=== PATIENT | female | born 1955 | race Caucasian/White ===

== ENCOUNTER 2018-11-24 19:18 | Inpatient (IN) | payer SELFPAY ==
[2018-11-24] MEDS ORDERED: Dexamethasone 4 mg/ml Vial ONE (19:51)
[2018-11-24 20:31] LABS: #Eosinphils 0.1 thou/uL (0.0-0.7); #Lymphocytes 2.5 thou/uL (1.20-3.40); #Monocytes 0.4 thou/uL (0.11-0.59); #Neutrophils 4.7 thou/uL (1.40-6.50); %Basophils 0.5 % (0.0-1.0); %Eosinophils 1.5 % (0.0-10.0); %Lymphocytes 32.6 % (21.0-51.0); %Monocytes 5.2 % (0.0-10.0); %Neutrophils 60.2 % (42.0-75.0); Hemoglobin 10.1 g/dL (12.0-16.0); Mean Corpuscular HGB CONC 32.2 g/dL (32.0-36.0); Mean Corpuscular Hemoglobin 24.9 pg (27.0-31.0); Mean Corpuscular Volume 77.5 fL (78.0-98.0); Mean Platelet Volume 8.4 fL (7.4-10.4); Platelet Count 156 thou/uL (130-400); RBC Distribution Width 15.1 % (11.5-14.5); Red Blood Cell (RBC) Count 4.06 mill/uL (4.20-5.40); White Blood Cell (WBC) Count 7.8 thou/uL (4.8-10.8)
--- NOTE | 2018-11-24 20:34 | RAD ---
CHEST TWO VIEWS: 11/24/18 HISTORY: Cough. COMPARISON: None. FINDINGS: There are sternotomy wires and mediastinal clips. Possible coronary stent. Normal cardiac silhouette. The pulmonary vessels and hilum are normal. Costophrenic angles are clear. No consolidation or mass. No pneumothorax or osseous abnormalities. IMPRESSION: No acute cardiopulmonary process. POS: [facility]
[2018-11-24 20:46] LABS: ALT (SGPT) 8 U/L (8-55); AST (SGOT) 13 U/L (5-34); Albumin 3.8 g/dL (3.4-4.8); Alkaline Phosphatase 89 U/L (40-150); Anion Gap 12 mmol/L (10-20); BUN (Urea Nitrogen) 13 mg/dL (9.8-20.1); Bilirubin, Total 0.2 mg/dL (0.2-1.2); Calc. Creatinine Clearance 0 mL/min (70-130); Calcium 9.3 mg/dL (7.8-10.44); Carbon Dioxide 27 mmol/L (23-31); Chloride 105 mmol/L (98-107); Estimated GFR-MDRD 50; Globulin 3.6 g/dL (2.4-3.5); Glucose 266 mg/dL (80-115); Potassium 4.6 mmol/L (3.5-5.1); Protein, Total 7.4 g/dL (6.0-8.3); Sodium 139 mmol/L (136-145)
[2018-11-24] MEDS ORDERED: Nitroglycerin 0.4 MG TAB (25 Tab Bottle) ONE (22:06)
[2018-11-24] MEDS ORDERED: Nitroglycerin 2% Ointment 1 INCH/1 GM Packet ONE (23:00)
[2018-11-24] MEDS ORDERED: diphenhydrAMINE 50 MG/ML VIAL ONE (23:49)
[2018-11-24 23:50] LABS: Troponin I Less than 0.010 ng/mL (< 0.028)
--- NOTE | 2018-11-25 00:01 | CT ---
CT ANGIOGRAM OF THE CHEST 11/24/18 HISTORY: Pain. COMPARISON: None. TECHNIQUE: CT angiogram of the chest is performed in the axial plane. Three dimensional reformatted images are s ubmitted for interpretation. FINDINGS: Trachea and central bronchi are patent. No suspicious masses or consolidation of the lung parenchyma. Dependent atelectatic changes and chronic changes are noted. No pleural effusion or pneumothorax. The visualized upper solid organs are unremarkable, with the exception of the left adrenal gland whic h appears to be prominent. The possibility of an adrenal adenoma versus hyperplasia should be conside red. Nonemergent adrenal mass protocol CT or abdomen MRI can be performed. There is no mediastinal mass, lymphadenopathy or hematoma. Heart size is within normal limits. No per icardial effusion. There are coronary artery calcifications. No lytic or blastic lesions in the osseous structures. Multilevel degenerative changes with osteophyt e formation is noted. Adequate contrast opacification of the pulmonary arterial system to the level of the segmental arteri es. No filling defect to suggest thromboembolism. IMPRESSION: 1. No evidence of pulmonary artery embolism to the level of the segmental arteries. 2. Indeterminate lesion of the left adrenal glands. Nonemergent adrenal mass protocol CT is giuseppe mmended. POS: [facility]
[2018-11-25 00:53] VITALS: BMI 31.5
[2018-11-25] MEDS ORDERED: Ondansetron ODT 4 MG TAB SL PRN (01:11)
[2018-11-25] MEDS ORDERED: Sodium Chloride 0.9% 1,000 ML IV SCH (01:11)
[2018-11-25] MEDS ORDERED: Acetaminophen 325 MG TAB PO PRN (01:11)
[2018-11-25] MEDS ORDERED: Ondansetron PF 4 MG/2 ML Vial IVP PRN (01:11)
[2018-11-25 02:52] LABS: Troponin I Less than 0.010 ng/mL (< 0.028)
[2018-11-25] MEDS ORDERED: Zolpidem Tartrate 5 MG TAB PO PRN (05:11)
[2018-11-25] MEDS ORDERED: Senokot S 8.6-50 MG TAB PO PRN (05:11)
[2018-11-25] MEDS ORDERED: Dextrose 50% Abboject 50 ML SYRINGE SLOW IVP PRN (05:11)
[2018-11-25] MEDS ORDERED: Bisacodyl 5 MG TAB PO PRN (05:11)
[2018-11-25] MEDS ORDERED: HumaLOG 300 UNITS/3 ML VIAL SC PRN (05:11)
[2018-11-25] MEDS ORDERED: Dextrose 5% in Water 1,000 ML IV PRN (05:11)
[2018-11-25 05:46] LABS: #Lymphocytes 0.8 thou/uL (1.20-3.40); #Monocytes 0.1 thou/uL (0.11-0.59); #Neutrophils 5.6 thou/uL (1.40-6.50); %Basophils 0.5 % (0.0-1.0); %Eosinophils 0.2 % (0.0-10.0); %Lymphocytes 11.6 % (21.0-51.0); %Monocytes 0.8 % (0.0-10.0); %Neutrophils 86.9 % (42.0-75.0); Mean Corpuscular Hemoglobin 24.7 pg (27.0-31.0); Mean Corpuscular Volume 77.1 fL (78.0-98.0); Mean Platelet Volume 8.3 fL (7.4-10.4); Platelet Count 159 thou/uL (130-400); RBC Distribution Width 14.9 % (11.5-14.5); Red Blood Cell (RBC) Count 4.04 mill/uL (4.20-5.40); White Blood Cell (WBC) Count 6.4 thou/uL (4.8-10.8)
[2018-11-25 06:07] LABS: Anion Gap 16 mmol/L (10-20); BUN (Urea Nitrogen) 13 mg/dL (9.8-20.1); Calc. Creatinine Clearance 66 mL/min (70-130); Calcium 9.4 mg/dL (7.8-10.44); Carbon Dioxide 22 mmol/L (23-31); Chloride 103 mmol/L (98-107); Estimated GFR-MDRD 52; Glucose 401 mg/dL (80-115); Potassium 4.9 mmol/L (3.5-5.1); Sodium 136 mmol/L (136-145)
[2018-11-25] MEDS: cefTRIAXone\\ROCEPHIN 1 GM in Sodium Chloride 0.9% 100 ML IVPB SCH (06:22)
[2018-11-25] MEDS: HumaLOG 300 UNITS/3 ML VIAL SC PRN (06:27)
[2018-11-25] MEDS ORDERED: Albuterol Sulfate 2.5 mg/3 ml Neb NEB SCH (06:30)
[2018-11-25] MEDS ORDERED: Ipratropium Bromide 2.5 ml Neb NEB SCH (06:30)
[2018-11-25] MEDS ORDERED: Azithromycin 500 MG in Sodium Chloride 0.9% 250 ML 250 ML IVPB SCH (08:00)
--- NOTE | 2018-11-25 08:43 | HP ---
CHIEF COMPLAINT: Cough. HISTORY OF PRESENT ILLNESS: This is a 63-year-old female with past medical history of diabetes mellitus type 2, hypertension, hyperlipidemia, presenting with cough which has been ongoing for the past two weeks. The patient states that actually the cough initially started a month ago and it progressively got worse two weeks ago, then the patient went to the clinic, saw a doctor and was given azithromycin. The patient has been taking azithromycin from the clinic and she feels like still she is having worsening cough with productive sputum and this is making her very concerned, so this prompted the ED visit. At this time, the patient is coming in and she stating that she has been having low-grade fevers around 100s and 99. The patient also states that she has been having some wheezes and also having dark phlegm with the cough. The patient is also endorsing some shortness of breath. Otherwise, the patient denies any chest pain, palpitations, abdominal pain, nausea, vomiting, dysuria, hematuria, hematochezia, or melena. REVIEW OF SYSTEMS: Positive for subjective fevers, generalized weakness, productive sputum, wheezing, otherwise as documented in the HPI. All other systems were reviewed and are negative. PAST MEDICAL HISTORY: Coronary artery disease, diabetes mellitus type 2, hypertension, hyperlipidemia. PAST SURGICAL HISTORY: CABG x3, colostomy reversal, tubal ligation, right ankle surgery. PSYCHIATRIC HISTORY: Depression. SOCIAL HISTORY: The patient is a former tobacco user. The patient states that she was smoking for a long time and she quit seven years ago. Denies any illicit drug use and denies any alcohol use. ALLERGIES: THE PATIENT IS ALLERGIC TO LEVAQUIN. CURRENT MEDICATIONS: The patient takes; 1. Carvedilol 12.5 mg. 2. Metformin 1000 mg. 3. Lipitor 40 mg. 4. Isosorbide. PHYSICAL EXAMINATION: VITAL SIGNS: Blood pressure is 187/79, pulse is 91, respiratory rate of 20, temperature is 98.5, O2 saturation 97 on room air. GENERAL: The patient is lying in bed, does not appear to be in any acute distress. The patient is very pleasant, alert and oriented x3, able to speak to me in full sentences. The patient do have cough productive. HEENT: Normocephalic and atraumatic. Pupils are equally round and reactive to light. Extraocular movements are intact. No scleral icterus. No conjunctival pallor. Mucous membranes are moist. NECK: Trachea is midline. Full range of motion. No JVD. Supple. LUNGS: The patient is wheezing bilaterally with some diffuse crackles that can be appreciated at the posterior lung bases bilaterally. CARDIAC: Positive S1 and S2. Regular rate and rhythm. No murmurs, no gallops, no rubs appreciated. ABDOMEN: Soft, nontender, and nondistended. Positive bowel sounds in all quadrants. No distention. No peritoneal signs. No mass. No rigidity. EXTREMITIES: The patient has 5/5 upper extremity strength and 5/5 lower extremity strength with good pulses bilaterally at the upper and lower extremities. SKIN: No lesions. Warm, dry, and intact. NEUROLOGIC: Cranial nerves 2 through 12 grossly intact. No neurologic deficits noted. PSYCH: The patient is alert and oriented x3. Normal affect. IMAGING DATA: EKG shows sinus rhythm with a rate of 98. CTA of the chest shows no evidence of pulmonary artery embolism to the level of the segmental arteries. Chest x-ray, no acute cardiopulmonary process. LABORATORY DATA: WBC 7.8, hemoglobin is 10.1, hematocrit of 31.5, and platelet count is 156. D-dimer 0.60. Sodium is 139, potassium is 4.6, chloride is 105, carbon dioxide of 27, anion gap of 12, BUN is 13, creatinine is 1.10, glucose is 266. ASSESSMENT AND PLAN: This is a 63-year-old female being admitted for; 1. Bronchitis. At this point, we are going to continue patient on IV antibiotics. We have started the patient on azithromycin and Rocephin. We will continue on these medications. The patient states that she is not allergic to any other medications except levofloxacin, so therefore we will continue Rocephin. We have consulted Pulmonology for further recommendations. We are going to give the patient DuoNeb treatments, Solu-Medrol. We will do oxygenation and we will try and get the patient's oxygenation around 92%. 2. Questionable chronic obstructive pulmonary disease exacerbation. The patient states that she has smoked extensively in the past. At this point, we will continue the patient on antibiotics. We have consulted Pulmonology for further recommendations. We will continue to monitor this patient. 3. Diabetes mellitus type 2. We will continue the patient on insulin sliding scale. 4. Hyperlipidemia. We will continue the patient on home medication. 5. Hypertension. We will monitor the patient's blood pressures and we will continue the patient on her home medications and we will do p.r.n. blood pressure medications if the patient's blood pressure continued to elevate. 6. DVT, GI prophylaxis. Job ID: [id number]
[2018-11-25] MEDS: Carvedilol 25 MG TAB PO SCH ×2 (10:18→20:45)
[2018-11-25] MEDS: Aspirin 81 mg Enteric Coated Tablet PO SCH (10:18)
[2018-11-25] MEDS: Enoxaparin Sodium 40 MG/0.4 ML SYRINGE SC SCH (10:18)
[2018-11-25] MEDS: Atorvastatin Calcium 40 MG TAB PO SCH (10:18)
[2018-11-25] MEDS: Famotidine 20 MG TAB PO SCH ×2 (10:18→20:45)
[2018-11-25] MEDS: Famotidine/PF 20 mg/2ml Vial SLOW IVP SCH ×2 (10:20→20:50)
[2018-11-25 10:42] LABS: Iron 28 ug/dL (50-170); Iron Binding Capacity, Total 364 mcg/dL (265-497)
[2018-11-25] MEDS ORDERED: Morphine 2 MG/ML SYRINGE SLOW IVP PRN (10:47)
--- NOTE | 2018-11-25 15:40 | PDOC.PN ---
- Subjective Encounter Start Date: 11/25/18 Encounter Start Time: 10:30 Subjective: pt up in bed no complains - Objective Resuscitation Status - Order Detail: 11/25/18 05:11 Resuscitation Status Routine Resuscitation Status: FULL: Full Resuscitation Vital Signs & Weight: Vital Signs (12 hours) Temp Pulse Resp BP BP Pulse Ox 11/25/18 13:49 89 18 98 11/25/18 10:26 97 18 98 11/25/18 08:59 98.9 F 92 20 165/77 H 98 11/25/18 08:55 98 11/25/18 07:50 82 16 96 11/25/18 07:30 98.1 F 84 20 194/79 H 187/81 H 97 11/25/18 04:26 98.0 F 87 19 139/69 98 Weight Weight 172 lb 6.4 oz Result Diagrams: 11/25/18 05:35 11/25/18 05:35 Additional Labs: Accuchecks 11/25/18 00:45 POC Glucose 361 H Phys Exam - Physical Examination Neck: no nodes, no JVD, supple, full ROM Respiratory: no wheezing, no rales, no rhonchi, wheezing present, clear to auscultation bilateral Cardiovascular: RRR, no significant murmur, no rub, gallop, irregular Gastrointestinal: soft, non-tender, no distention, positive bowel sounds Dx/Plan (1) SOB (shortness of breath) Code(s): R06.02 - SHORTNESS OF BREATH Status: Acute (2) Chest pain Code(s): R07.9 - CHEST PAIN, UNSPECIFIED Status: Acute (3) CAD (coronary artery disease) Code(s): I25.10 - ATHSCL HEART DISEASE OF [place] CORONARY ARTERY W/O ANG PCTRS Status: Acute (4) Diabetes insipidus Code(s): E23.2 - DIABETES INSIPIDUS Status: Acute - Plan pt chest pain today mild ekg changes, pt had cath 4 months ago -: in [place] will get results. * . Review of Systems - Review of Systems Respiratory: negative: Cough, Dry, Shortness of Breath, Hemoptysis, SOB with Excertion, Pleuritic Pain, Sputum, Wheezing Cardiovascular: negative: chest pain, palpitations, orthopnea, paroxysmal nocturnal dyspnea, edema, light headedness, other Gastrointestinal: negative: Nausea, Vomiting, Abdominal Pain, Diarrhea, Constipation, Melena, Hematochezia, Other - Medications/Allergies Allergies/Adverse Reactions: Allergies Allergy/AdvReac Type Severity Reaction Status Date / Time levofloxacin [From Levaquin] Allergy Severe Severe Verified 11/25/18 01:03 Hives Medications: Current Medications Albuterol/Ipratropium (Duoneb) 3 ml NEB [id number] [facility] Last Admin: 11/25/18 13:49 Dose: 3 ml Aspirin (Ecotrin) 81 mg PO DAILY [facility] Last Admin: 11/25/18 10:18 Dose: 81 mg Atorvastatin Calcium (Lipitor) 40 mg PO DAILY [facility] Last Admin: 11/25/18 10:18 Dose: 40 mg Bisacodyl (Dulcolax) 10 mg PO DAILYPRN PRN PRN Reason: Constipation Carvedilol (Coreg) 25 mg PO BID [facility] Last Admin: 11/25/18 10:18 Dose: 25 mg Dextrose/Water (Dextrose 50%) 25 gm SLOW IVP PRN PRN PRN Reason: Hypoglycemia Enoxaparin Sodium (Lovenox) 40 mg SC 0900 [facility] Last Admin: 11/25/18 10:18 Dose: 40 mg Famotidine (Pepcid) 20 mg SLOW IVP Q12HR [facility] Last Admin: 11/25/18 10:20 Dose: Not Given Famotidine (Pepcid) 20 mg PO BID [facility] Last Admin: 11/25/18 10:18 Dose: 20 mg Gabapentin (Neurontin) 300 mg PO HS [facility] Glucagon (Glucagon) 1 mg IM PRN PRN PRN Reason: Hypoglycemia Azithromycin 500 mg/ Sodium (Chloride) 250 mls @ 250 mls/hr IVPB Q24HR@0800 [facility] Last Admin: 11/25/18 10:18 Dose: 250 mls Ceftriaxone Sodium 1 gm/ (Sodium Chloride) 100 mls @ 200 mls/hr IVPB Q24HR [facility] Last Admin: 11/25/18 06:22 Dose: 100 mls Dextrose/Water (D5w) 1,000 mls @ 0 mls/hr IV .Q0M PRN PRN Reason: Hypoglycemia Insulin Human Lispro (Humalog) 0 units SC .MILD SLIDING SCALE PRN PRN Reason: Mild Correctional Scale Last Admin: 11/25/18 06:27 Dose: 6 unit Insulin Human Lispro (Humalog) 0 units SC .BEDTIME SLIDING SC PRN PRN Reason: Bedtime Correctional Scale Isosorbide Mononitrate (Imdur) 60 mg PO DAILY [facility] Last Admin: 11/25/18 10:18 Dose: 60 mg Methylprednisolone Sodium Succinate (Solu-Medrol) 40 mg IVP Q6HR [facility] Last Admin: 11/25/18 11:06 Dose: 40 mg Morphine Sulfate (Morphine) 2 mg SLOW IVP Q4H PRN PRN Reason: Chest Pain Last Admin: 11/25/18 11:06 Dose: 2 mg Senna/Docusate Sodium (Senokot S) 2 tab PO BIDPRN PRN PRN Reason: Constipation Sodium Chloride (Flush - Normal Saline) 10 ml IVF Q12HR [facility] Last Admin: 11/25/18 10:21 Dose: 10 ml Sodium Chloride (Flush - Normal Saline) 10 ml IVF PRN PRN PRN Reason: Saline Flush Last Admin: 11/25/18 06:23 Dose: 10 ml Zolpidem Tartrate (Ambien) 5 mg PO HSPRN PRN PRN Reason: Insomnia
[2018-11-25] MEDS ORDERED: Diltiazem 125 MG in Sodium Chloride 0.9% 100 ML IVPB SCH (20:45)
[2018-11-25] MEDS: Gabapentin 300 MG CAP PO SCH ×2 (20:45→20:48)
--- NOTE | 2018-11-25 21:17 | CON ---
DATE OF CONSULTATION: 11/25/2018 SERVICE: Pulmonary Medicine. REASON FOR CONSULT: Bronchitis. HISTORY OF PRESENT ILLNESS: The patient is a 63-year-old white female with past medical history significant for extensive smoking history. She has no formal diagnosis of COPD. For the last month, she has had increasing cough, and shortness of breath. This has progressed to the point that over the last 2 weeks, she had difficult time taking care of herself, and in the household. She is coughing up significant amounts of green sputum. She is wheezing. She has been experiencing some low-grade fevers. That being said, she has never really taken her temperature. She denies any current nausea or vomiting. She has not had change in her appetite or bowel movements. She does not note any hot, red, or swollen joints; rashes; arthralgias; vaginal discharge; dysuria; or frequency. She has not had any upper respiratory tract symptoms. Her daughter has been sick recently as well. PAST MEDICAL HISTORY: 1. Coronary artery disease. 2. Type 2 diabetes mellitus. 3. Hypertension. 4. Dyslipidemia. PAST SURGICAL HISTORY: 1. Coronary artery bypass graft x3 vessels. 2. Colostomy with subsequent reversal. 3. Tubal ligation. 4. Right ankle surgery. SOCIAL HISTORY: Negative for current tobacco use. She has a greater than 28-[id number] history of smoking, but quit almost 10 years ago. She denies any street drugs, or alcohol use. She has no exposure to chemicals, dust, asbestos, or tuberculosis. ALLERGIES: LEVAQUIN. MEDICATIONS: List of her inpatient medications was reviewed. No specific updates were made at this time. REVIEW OF SYSTEMS: General, head, ears, eyes, nose, throat, cardiovascular, respiratory, GI, , musculoskeletal, neurologic, and skin are negative except as mentioned in the HPI. PHYSICAL EXAMINATION: VITAL SIGNS: Afebrile, pulse 85, blood pressure 132/62, respirations 20, and saturation 96% on room air. GENERAL: The patient is awake and alert, in no apparent distress. LUNGS: Decent air entry. There are wheezing present in the expiratory phase of the bilateral lung silveira. These are polyphonic in nature. I also note dependent crackles. HEART: Normal rate. Regular. ABDOMEN: Soft, nontender, and nondistended. Bowel sounds are positive. There is a large ventral hernia present. : No [place]. NEUROLOGIC: Grossly nonfocal. LABORATORY DATA: WBC 6.4, hemoglobin 10.0, and platelets 159,000. D-dimer 0.6. Basic metabolic profile is essentially unremarkable with a creatinine of 1.06. TIBC is normal, iron and iron saturation are low. The troponins are negative x3. Glucose is quite elevated and remaining so. Liver function studies are otherwise unremarkable. IMAGIN. Chest x-ray demonstrates no acute cardiopulmonary abnormality. 2. CTA of the chest demonstrates no acute cardiopulmonary abnormality. There is scattered infiltrates here and there, which are quite unimpressive. They may be consistent with an acute bronchitis. I do not see any significant findings consistent with emphysema. Whether or not she has COPD is unknown. Her pulmonary arteries are quite small. Her right ventricle is also small. She got a dilated left atrium, and a generous left ventricle. ASSESSMENT: 1. Acute bronchitis (possible chronic obstructive pulmonary disease). 2. Acute on chronic diastolic heart failure. 3. Type 2 diabetes mellitus, poorly controlled. 4. Insomnia. DISCUSSION AND PLAN: I will give her a little bit of Ambien to see if this improves some of her sleep related issues. We will check a respiratory virus panel, and back off on her steroids. Hopefully, this will improve her blood sugars. If not, we will need to escalate therapy for diabetes through time. I will give her single dose of Lasix tomorrow morning if she has slight volume overload with a crackling in her lungs. She has already had a course of azithromycin in the outpatient setting, so the additional course here is not indicated. We will continue the Rocephin, but we can switch her to Omnicef for this once we are nearing discharge, only a 5-day course is indicated. Job ID: [id number]
[2018-11-25] MEDS ORDERED: Zolpidem Tartrate 5 MG TAB PO SCH (22:00)
[2018-11-26] MEDS ORDERED: Morphine 4 MG/ML VIAL IV PRN (00:45)
[2018-11-26] MEDS: cefTRIAXone\\ROCEPHIN 1 GM in Sodium Chloride 0.9% 100 ML IVPB SCH (05:17)
[2018-11-26] MEDS ORDERED: predniSONE 20 MG TAB PO SCH (08:00)
[2018-11-26] MEDS ORDERED: Furosemide 40 MG/4 ML VIAL SLOW IVP SCH (08:00)
[2018-11-26] MEDS: Aspirin 81 mg Enteric Coated Tablet PO SCH (09:15)
[2018-11-26] MEDS: Famotidine/PF 20 mg/2ml Vial SLOW IVP SCH (09:15)
[2018-11-26] MEDS: Carvedilol 25 MG TAB PO SCH (09:16)
[2018-11-26] MEDS: Atorvastatin Calcium 40 MG TAB PO SCH (09:16)
[2018-11-26] MEDS: Famotidine 20 MG TAB PO SCH (09:16)
[2018-11-26] MEDS: Enoxaparin Sodium 40 MG/0.4 ML SYRINGE SC SCH (09:16)
[2018-11-26] MEDS: HumaLOG 300 UNITS/3 ML VIAL SC PRN (11:43)
[2018-11-26 12:25] VITALS: BP 111/51; TEMP 98.1
--- NOTE | 2018-11-26 13:03 | CON ---
DATE OF CONSULTATION: 11/26/2018 REASON FOR CONSULTATION: Chest pain. HISTORY OF PRESENT ILLNESS: Ms. Chacon is a pleasant 63-year-old white female. I know her from having seen her in the past. She comes in for symptoms concerning for bronchitis. She had a low-grade fever, had a cough with sputum production. She was treated with antibiotics and is doing much better. Overnight, she had an episode of chest pain. She had it while she was coughing, so an EKG was done and showed some lateral ST changes, so Cardiology consulted for this. She has significant history of coronary artery disease. She had a bypass about 10 years ago x3 with a JORDAN to an LAD, a vein to an OM and a vein to a diagonal. She had a heart catheterization at the [facility] about 4 to 6 months ago, which showed that her JORDAN was patent to the LAD, but is a diffusely diseased distal LAD. Proximally, the LAD is 100% occluded, RCA was 100% occluded, fills from collaterals and left circumflex has an 80% ostial lesion at the bifurcation with the left main, but is diffusely diseased distally. Two vein grafts were completely occluded. At that time, the decision was made to do medical therapy and maximize her medications and antianginals and if she failed this, they would consider PCI to the ostium of the left circumflex. She had negative troponins. She states that the pain is only there when she coughs. If she does not cough, the pain is not there. The cough is much better this morning. PAST MEDICAL HISTORY: 1. Coronary artery disease as above. 2. Type 2 diabetes. 3. Hypertension. 4. Hyperlipidemia. PAST SURGICAL HISTORY: 1. CABG x3 in [place] about 10 years ago. 2. Colostomy reversal. 3. Tubal ligation. 4. Right ankle surgery. SOCIAL HISTORY: Former smoker, quit about 7 years ago. No alcohol or drugs. OUTPATIENT MEDICATIONS: 1. Carvedilol 12.5 mg a day. 2. Metformin 1000 mg a day. 3. Lipitor 40 mg a day. 4. Isosorbide 30 mg a day. ALLERGIES: LEVAQUIN. FAMILY HISTORY: No early coronary artery disease. REVIEW OF SYSTEMS: A 12-point review of systems was done and was found to be negative unless stated in the history of present illness. PHYSICAL EXAMINATION: VITAL SIGNS: Temperature 98.1, pulse 79, respiratory rate 20, saturating 95% on room air, blood pressure 181/51. GENERAL: Awake, alert, and oriented x3. No distress. HEENT: Normocephalic and atraumatic. NECK: Supple. LUNGS: Clear. CARDIOVASCULAR: S1 and S2. No S3 or S4. No murmurs. ABDOMEN: Soft. Positive bowel sounds. EXTREMITIES: No edema. SKIN: Warm and dry. LABORATORY DATA: Laboratory work was reviewed. CBC was reviewed. Coags and chemistries were reviewed. Troponin is undetectable. BNP was 232. ASSESSMENT AND PLAN: 1. Chest pain: Mostly related to coughing. We will get an echocardiogram and just to have an evaluation of her LV function, but this is just either her chronic stable angina or related to cough. We will up titrate her isosorbide mononitrate to 60 mg and she should be able to go home today after the echo is done. 2. She will follow up in the office in 1 month. Thank you for letting me to participate in the care of your patient. We will follow. Job ID: [id number]
--- NOTE | 2018-11-26 14:43 | PRG ---
DATE OF SERVICE: 11/26/2018 SUBJECTIVE: She is sitting up, begging to go home. OBJECTIVE: VITAL SIGNS: Temperature is 98.1, pulse 79, respirations 20, O2 saturation 95% on room air, blood pressure 111/51. HEENT: Exam did not demonstrate any abnormalities. NECK: No JVD. LUNGS: Clear without wheezing, rhonchi, or crackles. CARDIAC: S1 and S2 regular. ABDOMEN: Soft. EXTREMITIES: No edema. LABORATORY DATA: No labs were done today. Micro demonstrated no positive cultures. ASSESSMENT: 1. Bronchitis, which is better. 2. Acute on chronic diastolic heart failure. 3. Diabetes mellitus. 4. Insomnia. PLAN: The patient looks medically stable for discharge from a pulmonary standpoint. I would finish out a brief course of antibiotics-no more than 5 to 7 days for the bronchitis. Her steroids can be tapered over 4 to 5 days. She can follow up with Dr. Schultz as an outpatient if she has trouble. Pulmonary will sign off the case. Please recall if needed. Job ID: [id number]
--- NOTE | 2018-11-26 18:48 | DIS ---
DATE OF ADMISSION: 11/24/2018 DATE OF DISCHARGE: 11/26/2018 DISCHARGE DIAGNOSES: 1. Bronchitis. 2. Chest pain. 3. Hypertension. 4. Diabetes. 5. Indeterminate lesion to the left adrenal/kidney. HOSPITAL COURSE: The patient is a 63-year-old female, who initially presented to the hospital with shortness of breath. At this time, she stated that she had ongoing congestion for the past month. The patient at this time was admitted and underwent a CTA, which ruled out a pulmonary emboli. Pulmonary was consulted. She was put on some steroids and antibiotics. The patient was seen also by pulmonology and was put on steroids and IV antibiotics. However, while she was in the hospital, she started having some chest tightness. Troponins were negative. I did get her cath report from [facility], which indicated that she did have some severe [place] and bypass graft disease. Given her mild change in EKG during her chest pain, I did consult Cardiology, who recommended doing an echocardiogram and also he will follow up with her as an outpatient. The patient echocardiogram was done; however, the results were not obtainable. [employer] recommended following up as an outpatient and once the echo was taken, she was able to be discharged home. I did talk to her that she also will need to follow up with her primary care doctor, especially get further workup regarding her findings on the CAT scan of indeterminate adrenal lesion. She does understand and she will follow up as an outpatient with her primary care doctor. MEDICATIONS: The patient's home medications as of the following; 1. Metformin 1000 mg b.i.d. 2. Isosorbide 60 mg daily. 3. Gabapentin 300 mg at bedtime. 4. Carvedilol 25 mg b.i.d. 5. Atorvastatin 40 mg daily. 6. Aspirin 81 mg daily. 7. Prednisone 20 mg for the next 2 or 3 days. 8. Glyburide, I added this new one 2.5 b.i.d. 9. Ferrous gluconate 324 daily. 10. Pepcid 20 mg b.i.d. 11. Cefdinir 300 mg b.i.d. PHYSICAL EXAMINATION: VITAL SIGNS: Temperature 98.1, pulse 79, respiratory rate 20, 94% on room air, blood pressure 111/51. GENERAL: She is awake, alert, and oriented x3. Does not appear in distress. CV: S1 and S2 present. No murmurs, rubs, or gallops. ABDOMEN: Soft and nontender. Bowel sounds are present x2. EXTREMITIES: No edema. Pedal pulses present x2. Again, she will be discharged home. She will follow up with her primary and also with Cardiology and follow up with the PCP for the adrenal findings. Job ID: [id number]
== END 2018-11-26 15:47 | disposition home or self-care (01) | DRG 202 ==
LOC: ERS 19:18 → 2SW 23:09 → OBSVTOIN 23:09 → 2NO 11-25 08:22
PROVIDERS: ADMIT Internal Medicine; ATTEND Internal Medicine
DX: J20.9 Acute bronchitis, unspecified (principal); I50.33 Acute on chronic diastolic (congestive) heart failure; J44.0 Chronic obstructive pulmonary disease with (acute) lower respiratory infection; E11.9 Type 2 diabetes mellitus without complications; E78.5 Hyperlipidemia, unspecified; I25.10 Atherosclerotic heart disease of native coronary artery without angina pectoris; F32.9 Major depressive disorder, single episode, unspecified; I11.0 Hypertensive heart disease with heart failure; G47.00 Insomnia, unspecified; R07.9 Chest pain, unspecified; Z87.891 Personal history of nicotine dependence; Z95.1 Presence of aortocoronary bypass graft
CPT/HCPCS: 36415; 36416; 71046; 71275; 80048; 80053; 83540; 83550; 83880; 84484; 85025; 85379; 87633; 87798; 93005; 93010; 93306; 94640; 96374; J0456; J0696; J1100; J1200; J1650; J1940; J2270; J2920; J7050; J7506; J7611; J7620; Q0162; S0028

== ENCOUNTER 2019-08-14 14:47 | Outpatient (CLI) | payer MEDICARE ==
[2019-08-14 15:47] LABS: #Basophils 0.1 thou/uL (0.0-0.2); #Eosinphils 0.1 thou/uL (0.0-0.7); #Lymphocytes 2.6 thou/uL (1.20-3.40); #Monocytes 0.6 thou/uL (0.11-0.59); #Neutrophils 5.6 thou/uL (1.40-6.50); %Basophils 0.7 % (0.0-1.0); %Eosinophils 1.4 % (0.0-10.0); %Lymphocytes 28.8 % (21.0-51.0); %Monocytes 6.2 % (0.0-10.0); %Neutrophils 62.9 % (42.0-75.0); Hemoglobin 9.9 g/dL (12.0-16.0); Mean Corpuscular HGB CONC 32.1 g/dL (32.0-36.0); Mean Corpuscular Hemoglobin 24.3 pg (27.0-31.0); Mean Corpuscular Volume 75.5 fL (78.0-98.0); Platelet Count 191 thou/uL (130-400); RBC Distribution Width 16.7 % (11.5-14.5); Red Blood Cell (RBC) Count 4.08 mill/uL (4.20-5.40); White Blood Cell (WBC) Count 8.9 thou/uL (4.8-10.8)
[2019-08-14 16:08] LABS: ALT (SGPT) 7 U/L (8-55); AST (SGOT) 11 U/L (5-34); Alkaline Phosphatase 91 U/L (40-150); Anion Gap 16 mmol/L (10-20); BUN (Urea Nitrogen) 16 mg/dL (9.8-20.1); Bilirubin, Total 0.2 mg/dL (0.2-1.2); Calc. Creatinine Clearance 0 mL/min (70-130); Carbon Dioxide 21 mmol/L (23-31); Chloride 104 mmol/L (98-107); Estimated GFR-MDRD 54; Globulin 3.4 g/dL (2.4-3.5); Glucose 201 mg/dL (80-115); Potassium 4.1 mmol/L (3.5-5.1); Protein, Total 7.4 g/dL (6.0-8.3); Sodium 137 mmol/L (136-145)
== END 2019-08-14 14:48 | disposition home or self-care (01) ==
LOC: LABBT 14:47
PROVIDERS: ATTEND Surgery
DX: Z01.812 Encounter for preprocedural laboratory examination (principal); K43.2 Incisional hernia without obstruction or gangrene
CPT/HCPCS: 80053; 85025

== ENCOUNTER 2019-08-19 05:49 | Inpatient (IN) | payer MEDICARE ==
[2019-08-14 14:58] VITALS: BMI 31.6
[2019-08-19] MEDS ORDERED: Lidocaine 2% PF 5 ML VIAL ONE (06:42)
[2019-08-19] MEDS ORDERED: Bupivacaine/Epinephrine 0.25% 30 ML VIAL ONE (06:42)
[2019-08-19] MEDS ORDERED: Fentanyl 100 MCG/2 ML VIAL ONE ×3 (06:53→11:05)
[2019-08-19] MEDS ORDERED: Midazolam HCl 2 mg/2 ml Vial ONE (07:20)
--- NOTE | 2019-08-19 08:16 | HP ---
CHIEF COMPLAINT: Incisional ventral hernia. HISTORY OF PRESENT ILLNESS: This is a 64-year-old female, status post Ross's procedure for ruptured diverticula about 12 years ago. She has had reversal of colostomy about 10 years ago. She developed a hernia that was repaired and has recurred. She would like to have it repaired as it is causing pain. PAST MEDICAL HISTORY: Diabetes, heart disease, and stroke. PAST SURGICAL HISTORY: She had a tubal and the colectomy and reversal. MEDICATIONS: 1. Citalopram. 2. Metoprolol. 3. Metformin. 4. Isosorbide. ALLERGIES: SHE HAS ALLERGIES TO LEVAQUIN. FAMILY HISTORY: Father unknown. Mother had hypertension, heart disease, and stroke. SOCIAL HISTORY: No tobacco or alcohol. PHYSICAL EXAMINATION: VITAL SIGNS: Height 62, weight 173, and body mass index 32. GENERAL: She is a well-developed, well-nourished female, in no apparent distress. HEENT: Unremarkable. LUNGS: Clear. HEART: Regular rate and rhythm. ABDOMEN: Soft. There is an 8-cm midline hernia and a 12-cm left lower quadrant hernia. The midline hernia will not reduce. She has good pulses. No pedal edema. ASSESSMENT: Recurrent ventral hernia. PLAN: Ventral hernia repair with mesh. CONSENT: I have discussed planned procedure as well as risk of bleeding, infection, injury to bowel, recurrence of hernia, she understands and gives informed consent. Job ID: [id number]
[2019-08-19] MEDS ORDERED: Ondansetron PF 4 MG/2 ML Vial IVP PRN ×3 (10:29→11:45)
[2019-08-19] MEDS ORDERED: hydrALAZINE 20 MG/ML VIAL SLOW IVP PRN (10:29)
[2019-08-19] MEDS ORDERED: Promethazine HCl 25 MG/ML VIAL IM PRN ×4 (10:29→11:45)
[2019-08-19] MEDS ORDERED: Promethazine HCl 25 MG/ML VIAL ONE (11:19)
[2019-08-19] MEDS ORDERED: diphenhydrAMINE 25 MG CAP PO PRN ×2 (11:42→11:45)
[2019-08-19] MEDS ORDERED: diphenhydrAMINE 50 MG/ML VIAL IM PRN ×2 (11:42→11:45)
[2019-08-19] MEDS ORDERED: Promethazine HCl 25 MG/ML VIAL SLOW IVP PRN (11:42)
[2019-08-19] MEDS ORDERED: Naloxone HCl 0.4 mg/ml Vial IV PRN ×2 (11:42→11:45)
[2019-08-19] MEDS ORDERED: diphenhydrAMINE 50 MG/ML VIAL IVP PRN ×2 (11:42→11:45)
[2019-08-19] MEDS ORDERED: Zolpidem Tartrate 5 MG TAB PO PRN (11:42)
[2019-08-19] MEDS ORDERED: Ondansetron HCl/PF 4 MG/2 ML Vial IVP PRN (11:42)
[2019-08-19] MEDS ORDERED: Communication Order-Pharmacy FS SCH ×2 (11:45)
[2019-08-19] MEDS ORDERED: fentaNYL Citrate/PF 2,000 MCG in Sodium Chloride 0.9% 60 ML IV PRN (11:45)
[2019-08-19] MEDS: Sodium Chloride 0.9% 1,000 ML IV SCH ×2 (12:58→19:55)
[2019-08-19] MEDS: Acetaminophen 1,000 MG in Premix Bag 1 BAG IVPB SCH ×2 (13:01→18:03)
[2019-08-19] MEDS ORDERED: Ketorolac Tromethamine 30 MG/ML VIAL ONE (13:02)
[2019-08-19] MEDS: Ketorolac Tromethamine 30 MG/ML VIAL IVP SCH ×2 (13:03→18:03)
[2019-08-19] MEDS ORDERED: metroNIDAZOLE 500 MG/100 ML BAG ONE (13:47)
[2019-08-19] MEDS: CEFAZOLIN 2 GM in Premix Bag 1 BAG IVPB SCH ×2 (13:50→22:32)
--- NOTE | 2019-08-19 13:52 | OP ---
DATE OF PROCEDURE: 08/19/2019 PREOPERATIVE DIAGNOSIS: Recurrent incisional ventral hernias x4. PROCEDURES PERFORMED: 1. Open ventral hernia repair with mesh. 2. Open recurrent parastomal hernia repair with mesh. 3. Lysis of adhesions. INDICATIONS: This is a 64-year-old female, morbidly obese and diabetic, who had had a previous sigmoid colectomy elsewhere with diverting colostomy, that was subsequently taken down, developed a stomal side hernia as well as midline hernia. FINDINGS: Approximately 6 cm recurrent stomal hernia site in the left lower quadrant, 8 cm bermudian-cheese multiple midline hernias. A 6 x 8 inch piece of PROCEED mesh was used for the midline, 4 x 6 inch PROCEED mesh was used to repair the left lower quadrant incision. DESCRIPTION OF PROCEDURE: After informed consent was obtained, the patient was taken to the operating room and given general endotracheal anesthesia. She was placed in the supine position. Her abdomen was prepped and draped in the usual fashion. An upper midline incision was performed. Subcu divided sharply. The hernia sac was encountered. It was circumscribed circumferentially. The hernia sac then opened and excised. The hernia contained transverse colon. I was able to free it up and reduce it, then moved to the left lower quadrant. A transverse incision was performed in the left lower quadrant through the old incision. The hernia sac was encountered and excised. It contained a lot of omentum and small bowel. This was circumscribed. The hernia sac removed and this was then reduced. Now, I had to enlarge my midline opening because I was palpating I found not only an additional umbilical hernia, but several others in the region, so the skin incision in the midline was lengthened and this allowed full exposure and reduction of all the ventral hernias. Then, a lysis of adhesions was performed to free up the peritoneal surface circumferentially internally. Hemostasis achieved with electrocautery. The abdomen thoroughly irrigated. Irrigation fluid removed. Then, I started with a small hernia in the left lower quadrant. A 4 x 6-inch PROCEED mesh was used. This was fashioned with 4 Ethibond sutures of 0 Ethibond of alternating colors. The mesh was hydrated and inserted intra-abdominally. Then, using the GraNee needle, these sutures were individually grasped to position the mesh optimally. Then, the fascia was closed with interrupted [id number] of #1 Prolene transversely to close the defect and then the Ethibonds were sutured down to further secure the mesh. Then, moved to the midline wound. This wound was larger, so a 6 x 8-inch piece of PROCEED mesh was inserted. This was fashioned with 8 alternating colored 0 Ethibond. It was hydrated, inserted intra-abdominally, and individually, these sutures were grasped to position the mesh optimally to cover the defect. Then, the midline was closed with interrupted [id number] of #1 Prolene. Then, a drain was placed in the left lower quadrant and placed in the large defect. Then, the subcu was reapproximated over the drain with interrupted 3-0 Vicryl and the skin closed with skin shanda. An abdominal binder was then applied after Dermabond was applied to the small puncture wounds. The patient tolerated the procedure well and transferred to Recovery in good condition. Job ID: [id number]
[2019-08-19] MEDS: metroNIDAZOLE 500 MG in Premix Bag 1 BAG IVPB SCH ×2 (15:01→20:12)
[2019-08-19] MEDS: HumaLOG 300 UNITS/3 ML VIAL SC PRN (19:44)
[2019-08-19] MEDS: Famotidine 20 MG TAB PO SCH (20:11)
[2019-08-19] MEDS: Famotidine/PF 20 mg/2ml Vial SLOW IVP SCH (22:31)
[2019-08-20] MEDS: Ketorolac Tromethamine 30 MG/ML VIAL IVP SCH ×4 (00:52→17:55)
[2019-08-20] MEDS: Acetaminophen 1,000 MG in Premix Bag 1 BAG IVPB SCH ×2 (00:53→06:01)
[2019-08-20] MEDS: Sodium Chloride 0.9% 1,000 ML IV SCH ×4 (00:56→21:18)
[2019-08-20] MEDS: metroNIDAZOLE 500 MG in Premix Bag 1 BAG IVPB SCH (03:44)
[2019-08-20 05:32] LABS: #Eosinphils 0.1 thou/uL (0.0-0.7); #Lymphocytes 1.9 thou/uL (1.20-3.40); #Monocytes 0.8 thou/uL (0.11-0.59); #Neutrophils 4.7 thou/uL (1.40-6.50); %Basophils 0.3 % (0.0-1.0); %Eosinophils 0.8 % (0.0-10.0); %Lymphocytes 25.5 % (21.0-51.0); %Monocytes 10.2 % (0.0-10.0); %Neutrophils 63.2 % (42.0-75.0); Hemoglobin 8.4 g/dL (12.0-16.0); Mean Corpuscular Volume 77.5 fL (78.0-98.0); Mean Platelet Volume 8.7 fL (7.4-10.4); Platelet Count 149 thou/uL (130-400); RBC Distribution Width 16.6 % (11.5-14.5); Red Blood Cell (RBC) Count 3.49 mill/uL (4.20-5.40); White Blood Cell (WBC) Count 7.5 thou/uL (4.8-10.8)
[2019-08-20 06:21] LABS: Anion Gap 12 mmol/L (10-20); BUN (Urea Nitrogen) 19 mg/dL (9.8-20.1); Calc. Creatinine Clearance 61 mL/min (70-130); Calcium 7.6 mg/dL (7.8-10.44); Carbon Dioxide 22 mmol/L (23-31); Chloride 107 mmol/L (98-107); Estimated GFR-MDRD 48; Glucose 127 mg/dL (80-115); Potassium 4.3 mmol/L (3.5-5.1); Sodium 137 mmol/L (136-145)
--- NOTE | 2019-08-20 07:57 | PDOC.GSPN ---
Surgery Progress Note: Subj - Subjective Narrative: Ms. Nicole Chacon is a 64-year-old female, who is status post open ventral hernia repair. This morning she is doing well. She reports pain is well controlled with medication. Only complains of pain upon excess movement. She has gotten up 3 times since yesterday. She has developed no fever or shortness of breath. She voiced no concern. Surgery Progress Note: Obj - Vital signs Vital signs: Vital Signs - Most Recent Temp Pulse Resp BP Pulse Ox 98.7 F 76 16 103/67 99 08/20/19 04:40 08/20/19 04:40 08/20/19 04:40 08/20/19 04:40 08/20/19 04:40 - Physical Exam General: no distress, well nourished, obese ENT: no hearing loss, normal mucosa Cardiovascular: regular rate and rhythm, no murmur Respiratory: clear to auscultation, normal expansion, normal respiratory effort , breath sounds present Abdomen: soft, non tender, nondistended Hernia: none Psychiatric: memory intact, oriented to time, oriented to person, oriented to place, speech is normal Wound: healing well, drainage (SUSU drain), packing in place Surgery Progress Note: Results - Labs Result Diagrams: 08/20/19 05:14 08/20/19 05:14 Lab results: Laboratory Results - last 24 hr 08/20/19 08/20/19 08/20/19 00:59 05:14 05:14 WBC 7.5 RBC 3.49 L Hgb 8.4 L Hct 27.0 L MCV 77.5 L MCH 24.0 L MCHC 31.0 L RDW 16.6 H Plt Count 149 MPV 8.7 Neutrophils % 63.2 Lymphocytes % 25.5 Monocytes % 10.2 H Eosinophils % 0.8 Basophils % 0.3 Neutrophils # 4.7 Lymphocytes # 1.9 Monocytes # 0.8 H Eosinophils # 0.1 Basophils # 0.0 Sodium 137 Potassium 4.3 Chloride 107 Carbon Dioxide 22 L Anion Gap 12 BUN 19 Creatinine 1.14 H Estimated GFR (MDRD) 48 Glucose 127 H POC Glucose 140 H Calcium 7.6 L 08/20/19 05:30 WBC RBC Hgb Hct MCV MCH MCHC RDW Plt Count MPV Neutrophils % Lymphocytes % Monocytes % Eosinophils % Basophils % Neutrophils # Lymphocytes # Monocytes # Eosinophils # Basophils # Sodium Potassium Chloride Carbon Dioxide Anion Gap BUN Creatinine Estimated GFR (MDRD) Glucose POC Glucose 137 H Calcium Surgery Progress Note: A/P - Problem (1) Status post repair of ventral hernia Current Visit: Yes Code(s): Z98.890 - OTHER SPECIFIED POSTPROCEDURAL STATES; Z87.19 - PERSONAL HISTORY OF OTHER DISEASES OF THE DIGESTIVE SYSTEM Status: Acute - Plan Plan: Plan will be to continue supportive care. Re-evaluate pain control. Initiate liquid diet today. Continue DVT prophylaxis. Encourage ambulation.
[2019-08-20] MEDS: Famotidine 20 MG TAB PO SCH ×2 (08:41→20:25)
[2019-08-20] MEDS: Famotidine/PF 20 mg/2ml Vial SLOW IVP SCH ×2 (08:49→20:25)
[2019-08-20] MEDS ORDERED: Prevnar 13-Val Conj/PF 0.5 ML SYRINGE IM ONE (09:00)
--- NOTE | 2019-08-20 09:10 | PRG ---
DATE OF SERVICE: 08/20/2019 SUBJECTIVE: The patient says her pain is well controlled. She has no nausea or vomiting. She is tolerating ice chips well. OBJECTIVE: VITAL SIGNS: Temperature is 98.7, pulse is 76, blood pressure is 103/67. GENERAL: She is awake and alert. She has had 40 out of her SUSU. ABDOMEN: Soft. She has the binder on. LABORATORY DATA: Her white count is 7.5, H and H 8.4 and 27, and platelet count 149. ASSESSMENT: Doing well. PLAN: Advance diet. Ambulate. Job ID: [id number]
[2019-08-20] MEDS: Enoxaparin Sodium 40 MG/0.4 ML SYRINGE SC SCH (09:51)
[2019-08-20] MEDS: HumaLOG 300 UNITS/3 ML VIAL SC PRN (12:09)
[2019-08-20] MEDS ORDERED: Nitroglycerin 0.4 MG TAB (25 Tab Bottle) ONE (17:17)
[2019-08-20] MEDS: Nitroglycerin 0.4 MG TAB 1 EACH SL PRN ×2 (17:54→18:38)
[2019-08-20] MEDS ORDERED: Calcium Carbonate 500 MG ChewTAB PO PRN (18:14)
[2019-08-20] MEDS ORDERED: Furosemide 20 MG TAB PO PRN (18:31)
[2019-08-20] MEDS ORDERED: Morphine 4 MG/ML VIAL ONE (18:41)
[2019-08-20] MEDS ORDERED: Metoprolol Tartrate 25 MG TAB PO SCH (18:45)
[2019-08-20 19:07] LABS: Troponin I Less than 0.010 ng/mL (< 0.028)
[2019-08-20] MEDS ORDERED: Aspirin Chewable 81 MG TAB PO SCH (19:15)
--- NOTE | 2019-08-20 19:28 | CON ---
DATE OF CONSULTATION: PRIMARY CARE PROVIDER: Raj Hinton MD CHIEF COMPLAINT: Chest pain. HISTORY OF PRESENT ILLNESS: Ms. Chacon is a pleasant 64-year-old lady, who was seen at [facility] on August 20, 2019. She was admitted to the hospital yesterday for open ventral hernia repair with mesh, open recurrent parastomal hernia repair with mesh, and lysis of adhesions. She has a history of coronary artery disease. She reports that she was told about one and half years ago that she needed medical management and not interventions for her coronary artery disease. She is currently on isosorbide mononitrate. Her aerosol supervisor is Dr. Palmer. Apparently, there was also discussion regarding Ranexa. She reports that because of the cost factor, she did not go on Ranexa and wanted to optimize treatment with isosorbide mononitrate. She reports that over the last one and half years or so, she has had on and off chest pain. She describes the pain as retrosternal and to the left, occasionally radiating to the left shoulder, usually not accompanied by shortness of breath, worse with exertion. She reports that it is improved with nitrates. She also reports that it improves with antacids. She denies any cough or fever. She has not eaten much in the last couple of days. She reports having a large meal today. This was followed by the onset of chest pain. She reports that this time it was accompanied by shortness of breath. She received nitroglycerin with relief of the chest pain. Hospitalist Service was consulted for management of medical comorbidities including chest pain. REVIEW OF SYSTEMS: All systems were reviewed and found to be negative except for the pertinent positives mentioned above. PAST MEDICAL HISTORY: Coronary artery disease, diabetes mellitus type 2, hypertension, dyslipidemia. PAST SURGICAL HISTORY: Coronary artery bypass graft x3, colostomy reversal, tubal ligation, right ankle surgery, and surgeries described above, which were done yesterday. PSYCHIATRIC HISTORY: Depression. SOCIAL HISTORY: The patient denies any current tobacco use, alcohol use, or recreational drug use. She is an ex-smoker. FAMILY HISTORY: She denies any family history of premature coronary artery disease. ALLERGIES: LEVOFLOXACIN. HOME MEDICATIONS: Lipitor 40 mg at bedtime, citalopram 40 mg daily, furosemide 20 mg as needed, gabapentin 300 mg at bedtime, isosorbide mononitrate 60 mg daily, metformin 1000 mg 2 times a day, Toprol-XL 12.5 mg daily, nitroglycerin p.r.n. PHYSICAL EXAMINATION: GENERAL: On examination, Ms. Chacon is awake and alert, not in acute distress. VITAL SIGNS: Blood pressure is 123/74, pulse 95, respiratory rate 20, and oxygen saturation 97% on 2 L of oxygen. She is afebrile. She is obese with a BMI of 31.6. EYES: No scleral icterus, no conjunctival pallor. ENT: Moist mucosal membranes. No oropharyngeal erythema or exudates. NECK: Supple, nontender. Trachea is midline. RESPIRATORY: Accessory muscles of breathing are not active. Chest wall movements are symmetric bilaterally. LUNGS: Clear to auscultation without wheezes, rhonchi, or crepitations. CARDIOVASCULAR: S1 and S2 are heard, regular. Peripheral pulses palpable. NEUROLOGIC: Cranial nerves 2 through 12 are intact. ABDOMEN: She has an abdominal binder in place. Bowel sounds are heard. MUSCULOSKELETAL: The patient is moving all 4 extremities. SKIN: No rashes or subcutaneous nodules. LYMPHATIC: No cervical lymphadenopathy. PSYCHIATRIC: Normal mood, normal affect. The patient is oriented to person, place, and time. LABORATORY DATA: Ms. Chacon' labs and investigations were reviewed. I reviewed her electrocardiogram done today, which shows T-wave flattening in leads III and aVF and T-wave inversions in leads V5 and V6. In comparison to electrocardiogram done yesterday, the T-wave flattening in the inferior leads is new. Troponins are pending. She has a normal white count, microcytic anemia with hemoglobin 8.4, normal platelet count, normal sodium, normal potassium, elevated creatinine of 1.14, it was 1.02 on August 14, 2019. ASSESSMENT AND PLAN: Ms. Chacon is a pleasant 64-year-old lady, who was seen at [facility] on August 20, 2019. Her problem list includes : 1. Chest pain, most likely secondary to recurrent angina. She will be transferred to telemetry floor for telemetry monitoring. We will check her troponin. We will consult Cardiology Service for optimization of her anti-anginal medications. 2. Diabetes mellitus, type 2. We will continue the patient on Accu-Cheks and insulin sliding scale. 3. Hypertension. Continue beta-chinmay during the perioperative period. Monitor vital signs and titrate antihypertensives as needed. 4. Depression, appears to be mild, stable. Continue citalopram. 5. Dyslipidemia. Continue Lipitor. Many thanks for allowing me to participate in your patient's care. Please feel free to contact me with any questions or concerns. LEVEL OF RISK: Moderate. LEVEL OF COMPLEXITY: Moderate. Job ID: [id number] MTDD
[2019-08-20] MEDS: Atorvastatin Calcium 40 MG TAB PO SCH (20:24)
[2019-08-20] MEDS: Gabapentin 300 MG CAP PO SCH (20:25)
[2019-08-20] MEDS: HYDROcodone/Acetaminophen 10/325 mg Tablet PO PRN (20:38)
[2019-08-20] MEDS: Zolpidem Tartrate 5 MG TAB PO PRN (20:39)
[2019-08-21] MEDS: Ketorolac Tromethamine 30 MG/ML VIAL IVP SCH ×4 (01:04→17:59)
[2019-08-21 01:19] LABS: Troponin I Less than 0.010 ng/mL (< 0.028)
[2019-08-21 05:36] LABS: #Eosinphils 0.1 thou/uL (0.0-0.7); #Lymphocytes 1.5 thou/uL (1.20-3.40); #Monocytes 0.6 thou/uL (0.11-0.59); %Basophils 0.4 % (0.0-1.0); %Lymphocytes 20.5 % (21.0-51.0); %Monocytes 7.7 % (0.0-10.0); %Neutrophils 69.5 % (42.0-75.0); Hemoglobin 8.1 g/dL (12.0-16.0); Mean Corpuscular HGB CONC 31.2 g/dL (32.0-36.0); Mean Corpuscular Hemoglobin 24.4 pg (27.0-31.0); Mean Corpuscular Volume 77.9 fL (78.0-98.0); Mean Platelet Volume 8.9 fL (7.4-10.4); Platelet Count 145 thou/uL (130-400); RBC Distribution Width 16.6 % (11.5-14.5); Red Blood Cell (RBC) Count 3.31 mill/uL (4.20-5.40); White Blood Cell (WBC) Count 7.3 thou/uL (4.8-10.8)
[2019-08-21] MEDS: HYDROcodone/Acetaminophen 10/325 mg Tablet PO PRN ×3 (06:04→19:38)
[2019-08-21] MEDS: Famotidine 20 MG TAB PO SCH ×2 (10:02→19:39)
[2019-08-21] MEDS: Citalopram 20 MG TAB PO SCH (10:02)
[2019-08-21] MEDS: Famotidine/PF 20 mg/2ml Vial SLOW IVP SCH ×2 (10:04→19:40)
--- NOTE | 2019-08-21 10:37 | PRG ---
DATE OF SERVICE: 08/21/2019 SUBJECTIVE: The patient was transferred to Telemetry last night with angina that responded to a nitroglycerin. She had some lateral lead changes on the EKG, but her enzymes were not bumped. She says she feels fine now. She is not having any chest pain. No pain at all. She is tolerating a regular diet. She is passing flatus. OBJECTIVE: VITAL SIGNS: Temperature is 99.2, pulse 71, blood pressure is 129/61. GENERAL: She is awake, alert, in no apparent distress. LUNGS: Clear. HEART: Regular rate and rhythm. ABDOMEN: Obese, soft. The incisions look fine. There was a little bit of bloody drainage from the left side, medial, this was redressed. Her SUSU put out 75. LABORATORY DATA: Her white count is 7.3, hemoglobin and hematocrit were 8.1 and 25, platelet count 145. Again, her troponin was less than 0.010. Glucose is running in the mid 100s. ASSESSMENT: Status post open ventral hernia repair with postoperative angina. PLAN: I have talked to Dr. Palmer, who is going to see the patient, make sure she gets restarted on all her home medications. Job ID: [id number]
[2019-08-21] MEDS: Enoxaparin Sodium 40 MG/0.4 ML SYRINGE SC SCH (13:46)
--- NOTE | 2019-08-21 17:21 | PDOC.HOSPP ---
- Subjective Encounter Date: 08/21/19 Encounter Time: 08:00 Subjective: Pt seen for followup re: chest pain. Feels better, no recurrence of chest pain. - Objective Vital Signs & Weight: Vital Signs (12 hours) Temp Pulse Resp BP Pulse Ox 08/21/19 16:03 96.2 F L 76 17 132/61 96 08/21/19 12:00 98.2 F 75 18 134/64 95 08/21/19 08:00 97.8 F 72 16 130/62 97 Weight Weight 192 lb I&O: 08/20/19 08/21/19 08/22/19 06:59 06:59 06:59 Intake Total 1840 2340 Output Total 40 75 Balance 1800 2265 Result Diagrams: 08/21/19 05:00 08/20/19 05:14 Additional Labs: Accuchecks 08/21/19 08/21/19 08/21/19 15:56 05:46 01:24 POC Glucose 277 H 141 H 116 H 08/20/19 08/20/19 20:48 18:15 POC Glucose 247 H 251 H Labs and MARs reviewed by me EKG Reviewed by me: Yes (Tele; NSR) Hospitalist ROS - Review of Systems Cardiovascular: denies: chest pain, palpitations, orthopnea, paroxysmal noc. dyspnea, edema, light headedness Gastrointestinal: denies: nausea, vomiting, abdominal pain, diarrhea, constipation, melena, hematochezia - Medication Medications: Active Medications Generic Name Dose Route Start Last Admin Trade Name Freq PRN Reason Stop Dose Admin Hydrocodone Bitart/Acetaminophen 1 tab 08/20/19 16:51 08/21/19 15:04 [place] 10/325 PO 1 tab Q4H PRN Administration Pain (1-4) Atorvastatin Calcium 40 mg 08/20/19 21:00 08/20/19 20:24 Lipitor PO 40 mg HS KOBI Administration Calcium Carbonate 1,000 mg 08/20/19 18:14 08/20/19 18:43 Tums PO 1,000 mg BIDPRN PRN Administration Heartburn or Indigestion Citalopram Hydrobromide 40 mg 08/21/19 09:00 08/21/19 10:02 Celexa PO 40 mg DAILY KOBI Administration Enoxaparin Sodium 40 mg 08/22/19 09:00 08/21/19 12:57 Lovenox SC 40 mg 0900 KOBI Administration Famotidine 20 mg 08/19/19 21:00 08/21/19 10:02 Pepcid PO 20 mg Q12HR KOBI Administration Famotidine 20 mg 08/19/19 21:00 08/21/19 10:04 Pepcid SLOW IVP Not Given Q12HR KOBI Gabapentin 300 mg 08/20/19 21:00 08/20/19 20:25 Neurontin PO 300 mg HS KOBI Administration Insulin Human Lispro 0 units 08/19/19 10:29 08/20/19 12:09 Humalog SC 2 unit .MODERATE SLIDING SC PRN Administration Moderate Correctional Scale Isosorbide Mononitrate 60 mg 08/21/19 09:00 08/21/19 10:04 Imdur PO 60 mg DAILY KOBI Administration Ketorolac Tromethamine 15 mg 08/19/19 12:00 08/21/19 12:57 Toradol IVP 08/22/19 12:01 15 mg Q6HR KOBI Administration Metoprolol Succinate 12.5 mg 08/21/19 09:00 08/21/19 10:03 Toprol Xl PO 12.5 mg DAILY KOBI Administration Nitroglycerin 0.4 mg 08/20/19 17:40 08/20/19 18:38 Nitrostat SL 0.4 mg Q5MIN PRN Administration Chest Pain Zolpidem Tartrate 5 mg 08/19/19 11:45 08/20/19 20:39 Ambien PO 5 mg HSPRN PRN Administration Insomnia - Exam General - other findings: Obese Eye: anicteric sclera ENT: moist mucosa Neck: supple Heart: RRR, no rubs Respiratory: CTAB, no wheezes Gastrointestinal: soft, non-tender, normal bowel sounds, distended Extremities: no clubbing Musculoskeletal: normal tone, normal strength Psychiatric: normal affect, normal behavior Hosp A/P (1) Chest pain Code(s): R07.9 - CHEST PAIN, UNSPECIFIED Status: Acute (2) Status post repair of ventral hernia Code(s): Z98.890 - OTHER SPECIFIED POSTPROCEDURAL STATES; Z87.19 - PERSONAL HISTORY OF OTHER DISEASES OF THE DIGESTIVE SYSTEM Status: Acute (3) CAD (coronary artery disease) Code(s): I25.10 - ATHSCL HEART DISEASE OF [place] CORONARY ARTERY W/O ANG PCTRS Status: Chronic (4) HTN (hypertension) Code(s): I10 - ESSENTIAL (PRIMARY) HYPERTENSION Status: Chronic - Plan out of bed/ambulate Chest pain resolved, continue PRN nitro spray. HTN controlled.
[2019-08-21] MEDS ORDERED: Nitroglycerin 0.4 MG TAB (25 Tab Bottle) SL PRN (17:49)
--- NOTE | 2019-08-21 18:21 | CON ---
DATE OF CONSULTATION: 08/21/2019 REASON FOR CONSULTATION: Chest pain. HISTORY OF PRESENT ILLNESS: Ms. Chacon is a pleasant 64-year-old white female, very well known to myself, who comes to the hospital for planned abdominal surgery. She had mesh placed on her abdomen for several hernias. This was repaired on . Yesterday evening, she had an episode of chest pain. She was transferred down to the tele unit. Continued to have episodes of chest pain today, improved with nitroglycerin. Cardiology is being consulted for further care. On my evaluation, Ms. Chacon is feeling well. Denies any chest pain, tightness, or pressure. She has a history of significant coronary artery disease with previous bypass about 10 to 11 years ago, and her only open bypass is a JORDAN to the LAD, and the LAD is a diffusely diseased vessel. She was treated medically. This is from a heart catheterization last year at the [facility]. Her vein graft to the OM and a vein graft to the RCA were both occluded, and her [place] RCA is 100% occluded, fills from left collaterals, and she has a severe ostial left circumflex lesion with diffuse disease distally, so she was treated medically for all this. Currently, she is pain free. PAST MEDICAL HISTORY: 1. Coronary artery disease as above. 2. Type 2 diabetes. 3. Hypertension. 4. Hyperlipidemia. SURGICAL HISTORY: 1. CABG x3 in [place] about 10 to 11 years ago. 2. Colostomy reversal. 3. Tubal ligation. 4. Right ankle surgery. SOCIAL HISTORY: Former smoker, quit 7 to 8 years ago. No alcohol or drugs. OUTPATIENT MEDICATIONS: Include, 1. Lasix p.r.n. 2. Nitroglycerin sublingual p.r.n. 3. Citalopram 40 mg a day. 4. Metoprolol succinate 12.5 mg a day. 5. Gabapentin 300 mg q.h.s. 6. Atorvastatin 40 mg q.h.s. 7. Metformin 1000 mg b.i.d. 8. Imdur 60 mg a day. ALLERGIES: LEVOFLOXACIN GIVES HER HIVES. FAMILY HISTORY: No early coronary artery disease. REVIEW OF SYSTEMS: A 12-point review of systems was done and was all negative unless stated in the history of present illness. PHYSICAL EXAMINATION: VITAL SIGNS: Temperature 96.2, pulse 76, respiratory rate 17, saturating 96% on room air, and blood pressure 132/61. GENERAL: Awake, alert, and oriented x3. No distress. HEENT: Normocephalic and atraumatic. NECK: Supple. LUNGS: Clear. CARDIOVASCULAR: S1 and S2. No S3 or S4. There is a grade 2/6 systolic murmur at the right upper sternal border. ABDOMEN: Soft. Positive bowel sounds. EXTREMITIES: No edema. SKIN: Warm and dry. LABORATORY DATA: Laboratory work was reviewed. CBC with a white count of 7.3, hemoglobin before surgery was 10, is down to 8.1, hematocrit of 25, and platelet count of 145. Chemistry with troponins negative x2. Otherwise, basic metabolic profile is unremarkable. Creatinine is 1.14 with GFR of 48. ASSESSMENT: 1. Chronic stable angina. 2. Coronary artery disease. 3. Status post coronary artery bypass grafting 10 years ago. 4. Status post hernia repair. 5. Anemia. PLAN: 1. She has an expected drop in hemoglobin from any surgery. 2 units would be more than expected, but she has very little reserve to begin with and most likely will benefit from getting a couple of units of blood to tank her back up to 10. I think that she should be able to get this done overnight and discharged home tomorrow if everything seems to continue to do well. We will add a sublingual p.r.n. nitroglycerin for any more episodes of chest pain that she gets. Hopefully, once we tank her up, her symptoms will go back to her baseline. 2. No evidence of an acute coronary syndrome. This is not a postoperative FL. This suggests her chronic stable angina getting a little bit exacerbated from her mild anemia. Thank you for letting us to participate in the care of your patient. We will follow. Job ID: [id number]
[2019-08-21] MEDS: HumaLOG 300 UNITS/3 ML VIAL SC PRN (18:24)
[2019-08-21] MEDS: Zolpidem Tartrate 5 MG TAB PO PRN (19:39)
[2019-08-21] MEDS: Gabapentin 300 MG CAP PO SCH (19:39)
[2019-08-21] MEDS: Atorvastatin Calcium 40 MG TAB PO SCH (19:39)
[2019-08-22] MEDS: Ketorolac Tromethamine 30 MG/ML VIAL IVP SCH ×3 (01:54→14:21)
[2019-08-22] MEDS: HYDROcodone/Acetaminophen 10/325 mg Tablet PO PRN ×3 (02:54→17:35)
[2019-08-22 07:56] VITALS: TEMP 98.5
[2019-08-22] MEDS: Citalopram 20 MG TAB PO SCH (08:57)
[2019-08-22] MEDS: Famotidine/PF 20 mg/2ml Vial SLOW IVP SCH (08:58)
[2019-08-22] MEDS: Famotidine 20 MG TAB PO SCH (08:59)
[2019-08-22] MEDS ORDERED: Enoxaparin Sodium 40 MG/0.4 ML SYRINGE SC SCH (09:00)
[2019-08-22 11:00] VITALS: BP 146/65
[2019-08-22 11:43] LABS: Hemoglobin 9.6 g/dL (12.0-16.0)
--- NOTE | 2019-08-22 16:27 | PDOC.CPN ---
- Subjective Date: 08/22/19 Time: 16:25 Interval history: She is doing much better. She received 2 units of PRBC's and her hgb is closer to 10. No more chest pains since. - Review of Systems General: denies: fever/chills, weight/appetite/sleep changes, night sweats, fatigue Respiratory: denies: cough, congestion, shortness of breath, exercise intolerance Cardiovascular: denies: chest pain, palpitation, edema, paroxysmal nocturnal dyspnea, orthopnea Gastrointestinal: denies: nausea, vomiting, diarrhea, constipation, abd pain, GI bleeding Musculoskeletal: reports: pain. denies: tenderness, stiffness, swelling, arthritis/arthralgias Neurological: denies: numbness, syncope, seizure, weakness - Objective Allergies/Adverse Reactions: Allergies Allergy/AdvReac Type Severity Reaction Status Date / Time levofloxacin [From Levaquin] Allergy Severe Severe Verified 08/14/19 14:58 Hives Visit Medications: Current Medications Hydrocodone Bitart/Acetaminophen ([place] 10/325) 1 tab PO Q4H PRN PRN Reason: Pain (1-4) Last Admin: 08/22/19 02:54 Dose: 1 tab Hydrocodone Bitart/Acetaminophen ([place] 10/325) 2 tab PO Q4H PRN PRN Reason: Pain (5-10) Last Admin: 08/22/19 09:45 Dose: 2 tab Albuterol/Ipratropium (Duoneb) 3 ml NEB Q4H PRN PRN Reason: Wheezing Atorvastatin Calcium (Lipitor) 40 mg PO HS [facility] Last Admin: 08/21/19 19:39 Dose: 40 mg Calcium Carbonate (Tums) 1,000 mg PO BIDPRN PRN PRN Reason: Heartburn or Indigestion Last Admin: 08/20/19 18:43 Dose: 1,000 mg Citalopram Hydrobromide (Celexa) 40 mg PO DAILY [facility] Last Admin: 08/22/19 08:57 Dose: 40 mg Diphenhydramine HCl (Benadryl) 25 mg IVP Q3H PRN PRN Reason: Itching Diphenhydramine HCl (Benadryl) 25 mg PO Q3H PRN PRN Reason: Itching Diphenhydramine HCl (Benadryl) 25 mg IM Q3H PRN PRN Reason: Itching Enoxaparin Sodium (Lovenox) 40 mg SC 0900 [facility] Last Admin: 08/21/19 12:57 Dose: 40 mg Famotidine (Pepcid) 20 mg PO Q12HR [facility] Last Admin: 08/22/19 08:59 Dose: 20 mg Famotidine (Pepcid) 20 mg SLOW IVP Q12HR [facility] Last Admin: 08/22/19 08:58 Dose: Not Given Furosemide (Lasix) 20 mg PO QAM PRN PRN Reason: Edema Gabapentin (Neurontin) 300 mg PO HS [facility] Last Admin: 08/21/19 19:39 Dose: 300 mg Hydralazine HCl (Apresoline) 10 mg SLOW IVP Q4H PRN PRN Reason: SBP > 170 or DBP > 100 Insulin Human Lispro (Humalog) 0 units SC .MODERATE SLIDING SC PRN PRN Reason: Moderate Correctional Scale Last Admin: 08/21/19 18:24 Dose: 6 unit Isosorbide Mononitrate (Imdur) 60 mg PO DAILY [facility] Last Admin: 08/22/19 08:57 Dose: 60 mg Metoprolol Succinate (Toprol Xl) 12.5 mg PO DAILY [facility] Last Admin: 08/22/19 08:58 Dose: 12.5 mg Naloxone HCl (Narcan) 0.2 mg IV Q5MIN PRN PRN Reason: Opiate Reversal Nitroglycerin (Nitrostat) 0.4 mg SL Q5MIN PRN PRN Reason: Chest Pain Last Admin: 08/20/19 18:38 Dose: 0.4 mg Nitroglycerin (Nitrostat) 0.4 mg SL Q5MIN PRN PRN Reason: Chest Pain Ondansetron HCl (Zofran) 4 mg IVP Q6H PRN PRN Reason: Nausea/Vomiting Promethazine HCl (Phenergan) 12.5 mg IM Q4H PRN PRN Reason: Nausea/Vomiting Sodium Chloride (Flush - Normal Saline) 10 ml IVF PRN PRN PRN Reason: Saline Flush Zolpidem Tartrate (Ambien) 5 mg PO HSPRN PRN PRN Reason: Insomnia Last Admin: 08/21/19 19:39 Dose: 5 mg Vital Signs & Weight: Vital Signs Temp Pulse Pulse Resp BP BP Pulse Ox 08/22/19 10:58 98.5 F 74 16 146/65 H 08/22/19 07:55 98.5 F 70 18 156/67 H 95 08/22/19 07:40 95 Weight 196 lb 14.4 oz - Physical Exam General: alert & oriented x3, no apparent distress HEENT: mucus membranes moist, normocephaly Neck: supple neck, midline trachea Cardiac: regular rate and rhythm, no murmur Lungs: clear to auscultation, no wheeze, rales, rhonchi Neuro: grossly intact, coordination normal Abdomen: active bowel sounds, soft, non-tender Skin: clear Musculoskeletal: normal range of motion, no pain - Labs Result Diagrams: 08/22/19 11:25 08/20/19 05:14 Troponin/CKMB Troponin I Less than 0.010 ng/mL (< 0.028) 08/21/19 00:32 - Telemetry Sinus rhythms and dysrhythmias: sinus rhythm - Assessment/Plan Assessment/Plan: 1. Chronic stable angina 2. Mild anemia, improved. PLAN: - May discharge home from cardiac perspective. - Follow up in the office as previously scheduled. - Continue home meds as before admission. - Restart aspirin as soon as possible when safe from surgical perspective.
--- NOTE | 2019-08-22 23:02 | DIS ---
DATE OF ADMISSION: 08/19/2019 DATE OF DISCHARGE: 08/22/2019 DISCHARGE DIAGNOSES: 1. Incarcerated recurrent incisional ventral hernia x2. 2. Anemia. 3. Angina pectoris. PROCEDURES DURING ADMISSION: Open ventral hernia repair with mesh x2 and also blood transfusion. HOSPITAL COURSE: The patient was admitted, given general anesthesia, taken to the OR where she underwent repair of 2 incarcerated ventral hernias that were both recurrent. Postoperatively, she was very happy with the results. She came in a little anemic with a hemoglobin of 9, she dropped down to 8.1, and was having some angina responded to nitroglycerin. She ruled out for myocardial infarction. Cardiology saw her and decided to give her 2 units of blood. She is doing well now, free of angina. Her vital signs are fine. She does have a drain in. She was discharged home on hydrocodone and Zofran. She will follow up with me on Monday or Monday. Job ID: [id number]
== END 2019-08-22 18:28 | disposition home or self-care (01) | DRG 354 ==
LOC: SDC 05:49 → SURG A 17:24 → 2NO 08-20 19:06
PROVIDERS: ADMIT Surgery; ATTEND Surgery
PROC: 0WUF0JZ Supplement Abdominal Wall with Synthetic Substitute, Open Approach (ICD-10-PCS; principal; 2019-08-19)
PROC: 0WUF0JZ Supplement Abdominal Wall with Synthetic Substitute, Open Approach (ICD-10-PCS; 2019-08-19)
DX: K43.0 Incisional hernia with obstruction, without gangrene (principal); F32.0 Major depressive disorder, single episode, mild; K43.5 Parastomal hernia without obstruction or gangrene; E11.9 Type 2 diabetes mellitus without complications; D64.9 Anemia, unspecified; E78.5 Hyperlipidemia, unspecified; I11.9 Hypertensive heart disease without heart failure; I25.118 Atherosclerotic heart disease of native coronary artery with other forms of angina pectoris; E66.01 Morbid (severe) obesity due to excess calories; Z86.73 Personal history of transient ischemic attack (TIA), and cerebral infarction without residual deficits; Z79.84 Long term (current) use of oral hypoglycemic drugs; Z79.899 Other long term (current) drug therapy; Z88.1 Allergy status to other antibiotic agents; Z95.1 Presence of aortocoronary bypass graft; Z98.51 Tubal ligation status; Z68.31 Body mass index [BMI] 31.0-31.9, adult; Z87.891 Personal history of nicotine dependence
CPT/HCPCS: 36415; 36416; 36430; 80048; 84484; 85014; 85018; 85025; 86850; 86870; 86880; 86900; 86901; 86922; 90471; 90670; 93005; 93010; C1781; G0009; J0131; J0690; J1650; J1885; J2001; J2250; J2270; J2550; J3010; J3490; J7620; P9016; S0028

== ENCOUNTER 2019-08-23 21:08 | Emergency (ER) | payer MEDICARE ==
--- NOTE | 2019-08-23 21:34 | RAD ---
XR Chest 1 View Portable HISTORY: Cough. Denies shortness of breath. COMPARISON: 11/24/2018 study. FINDINGS: Heart size is enlarged with postop sternotomy changes. Interstitial lung changes appear sli ghtly more prominent than on the prior examination no focal infiltrative process is seen. IMPRESSION: Mildly increased interstitial lung changes this could indicate an element of interstitial edema. No focal infiltrates.
[2019-08-23 21:38] LABS: #Eosinphils 0.2 thou/uL (0.0-0.7); #Lymphocytes 1.7 thou/uL (1.20-3.40); #Monocytes 0.6 thou/uL (0.11-0.59); #Neutrophils 5.7 thou/uL (1.40-6.50); %Basophils 0.4 % (0.0-1.0); %Eosinophils 2.3 % (0.0-10.0); %Lymphocytes 20.8 % (21.0-51.0); %Monocytes 6.9 % (0.0-10.0); %Neutrophils 69.6 % (42.0-75.0); Hemoglobin 11.1 g/dL (12.0-16.0); Mean Corpuscular HGB CONC 32.4 g/dL (32.0-36.0); Mean Corpuscular Hemoglobin 25.5 pg (27.0-31.0); Mean Corpuscular Volume 78.7 fL (78.0-98.0); Mean Platelet Volume 8.3 fL (7.4-10.4); Platelet Count 210 thou/uL (130-400); RBC Distribution Width 17.2 % (11.5-14.5); Red Blood Cell (RBC) Count 4.34 mill/uL (4.20-5.40); White Blood Cell (WBC) Count 8.2 thou/uL (4.8-10.8)
[2019-08-23 21:43] LABS: Bilirubin Negative (Negative); Blood, Urine Negative (Negative); Clarity Clear (Clear); Glucose, Urine (Dipstick) 30 mg/dL (Negative); Leukocyte Negative Leu/uL (Negative); Nitrite Negative (Negative); Protein, Urine (Dipstick) Negative (Neg-Trace); Urobilinogen Normal mg/dL (Less than 2)
[2019-08-23 22:01] LABS: ALT (SGPT) 9 U/L (8-55); AST (SGOT) 24 U/L (5-34); Albumin 3.8 g/dL (3.4-4.8); Alkaline Phosphatase 107 U/L (40-110); Anion Gap 14 mmol/L (10-20); BUN (Urea Nitrogen) 17 mg/dL (9.8-20.1); Bilirubin, Total 0.5 mg/dL (0.2-1.2); Calc. Creatinine Clearance 0 mL/min (70-130); Calcium 9.3 mg/dL (7.8-10.44); Carbon Dioxide 24 mmol/L (23-31); Chloride 104 mmol/L (98-107); Estimated GFR-MDRD 61; Globulin 3.9 g/dL (2.4-3.5); Glucose 198 mg/dL (80-115); Potassium 4.2 mmol/L (3.5-5.1); Protein, Total 7.7 g/dL (6.0-8.3); Sodium 138 mmol/L (136-145)
[2019-08-23] MEDS ORDERED: Morphine 4 MG/ML VIAL ONE (22:56)
[2019-08-23] MEDS ORDERED: Ondansetron PF 4 MG/2 ML Vial ONE (22:56)
[2019-08-23] MEDS ORDERED: cefTRIAXone\\ROCEPHIN 1 GM VIAL ONE (23:14)
[2019-08-23] MEDS ORDERED: Furosemide 40 MG/4 ML VIAL ONE (23:14)
== END 2019-08-24 01:13 | disposition home or self-care (01) ==
LOC: ERS 21:08
DX: R50.9 Fever, unspecified (principal); I11.0 Hypertensive heart disease with heart failure; I50.9 Heart failure, unspecified; E11.9 Type 2 diabetes mellitus without complications; E78.5 Hyperlipidemia, unspecified; F32.9 Major depressive disorder, single episode, unspecified; Z09 Encounter for follow-up examination after completed treatment for conditions other than malignant neoplasm; Z95.5 Presence of coronary angioplasty implant and graft; Z86.73 Personal history of transient ischemic attack (TIA), and cerebral infarction without residual deficits; Z87.891 Personal history of nicotine dependence; Z79.899 Other long term (current) drug therapy; Z79.84 Long term (current) use of oral hypoglycemic drugs
CPT/HCPCS: 36415; 71045; 80053; 81003; 83605; 83880; 84484; 85025; 87040; 87086; 87804; 93005; 96365; 96366; 96368; 96375; J0696; J1940; J2270; J2405; J3370

== ENCOUNTER 2019-09-04 21:23 | Inpatient (IN) | payer MEDICARE ==
[2019-09-04 22:04] LABS: #Basophils 0.1 thou/uL (0.0-0.2); #Eosinphils 0.1 thou/uL (0.0-0.7); #Lymphocytes 3.1 thou/uL (1.20-3.40); #Monocytes 0.9 thou/uL (0.11-0.59); #Neutrophils 5.3 thou/uL (1.40-6.50); %Basophils 0.6 % (0.0-1.0); %Eosinophils 0.9 % (0.0-10.0); %Lymphocytes 33.1 % (21.0-51.0); %Monocytes 9.2 % (0.0-10.0); %Neutrophils 56.2 % (42.0-75.0); Hemoglobin 10.4 g/dL (12.0-16.0); Mean Corpuscular Hemoglobin 25.6 pg (27.0-31.0); Mean Corpuscular Volume 77.7 fL (78.0-98.0); Mean Platelet Volume 8.2 fL (7.4-10.4); Platelet Count 245 thou/uL (130-400); Red Blood Cell (RBC) Count 4.07 mill/uL (4.20-5.40); White Blood Cell (WBC) Count 9.4 thou/uL (4.8-10.8)
[2019-09-04] MEDS ORDERED: Aspirin 325 MG TAB ONE (22:04)
[2019-09-04] MEDS ORDERED: Nitroglycerin 2% Ointment 1 INCH/1 GM Packet ONE (22:04)
[2019-09-04] MEDS ORDERED: Nitroglycerin 0.4 MG TAB 1 EACH ONE (22:04)
[2019-09-04] MEDS ORDERED: Furosemide 40 MG/4 ML VIAL ONE (22:04)
--- NOTE | 2019-09-04 22:04 | RAD ---
XR Chest 1 View Portable History: Dyspnea Comparison: Radiograph August 23, 2019 Findings: Heart size is enlarged. Mild pulmonary venous congestion. No pneumothorax. No significant e ffusion. Multiple midline sternotomy wires and mediastinal shanda. No acute osseous abnormality. Impression: Cardiomegaly and mild portal venous congestion although improved from the 08/23/2019 exam.
[2019-09-04 22:27] LABS: ALT (SGPT) Less than 7 U/L (8-55); AST (SGOT) 31 U/L (5-34); Albumin 4.2 g/dL (3.4-4.8); Alkaline Phosphatase 93 U/L (40-110); Anion Gap 15 mmol/L (10-20); BUN (Urea Nitrogen) 11 mg/dL (9.8-20.1); Bilirubin, Total 0.7 mg/dL (0.2-1.2); CK (CPK) 134 U/L (29-168); Calc. Creatinine Clearance 0 mL/min (70-130); Calcium 9.2 mg/dL (7.8-10.44); Carbon Dioxide 23 mmol/L (23-31); Chloride 102 mmol/L (98-107); Estimated GFR-MDRD 64; Globulin 4.1 g/dL (2.4-3.5); Glucose 183 mg/dL (80-115); Lipase 38 U/L (8-78); Protein, Total 8.3 g/dL (6.0-8.3); Sodium 136 mmol/L (136-145)
[2019-09-04 22:54] LABS: CKMB 7.4 ng/mL (0-6.6)
[2019-09-04] MEDS ORDERED: Morphine 4 MG/ML VIAL ONE (23:02)
[2019-09-04] MEDS ORDERED: Enoxaparin Sodium 80 MG/0.8 ML SYRINGE ONE (23:03)
[2019-09-04] MEDS ORDERED: Ondansetron PF 4 MG/2 ML Vial ONE ×2 (23:03→23:09)
[2019-09-04] MEDS ORDERED: Metoprolol Tartrate 5 MG/5 ML VIAL ONE (23:03)
[2019-09-04 23:20] LABS: Bilirubin Negative (Negative); Blood, Urine Trace (Negative); Clarity Clear (Clear); Glucose, Urine (Dipstick) Normal (Negative); Leukocyte 500 Leu/uL (Negative); Mucous/LPF Rare LPF (<2+); Nitrite Negative (Negative); Protein, Urine (Dipstick) 10 mg/dL (Neg-Trace); Transitional Epithelial 0-3 HPF (None Seen); Urobilinogen Normal mg/dL (Less than 2); WBC/HPF 21-50 HPF (0-3)
[2019-09-04 23:27] LABS: Bacteria/HPF 1+ HPF (None Seen)
[2019-09-04] MEDS ORDERED: cefTRIAXone\\ROCEPHIN 1 GM VIAL ONE (23:39)
[2019-09-05 02:23] VITALS: BMI 32.3
[2019-09-05 02:25] LABS: Troponin I 0.839 ng/mL (< 0.028)
[2019-09-05 07:09] LABS: Troponin I 0.942 ng/mL (< 0.028)
[2019-09-05] MEDS ORDERED: FLU VACC TS2019-20(65YR UP)/PF 180 MCG/0.5 ML SYRINGE IM ONE (09:00)
--- NOTE | 2019-09-05 09:24 | NM ---
VQ SCAN: CLINICAL HISTORY: Elevated D-dimer. TECHNIQUE: Right pharmaceutical: 16.6 mCi xenon inhaled, 6.6 mCi technetium 99m MAA. FINDINGS: No significant defects on the ventilation portion of the exam. Homogeneous without a moderate or larg e filling defect. IMPRESSION: Normal VQ scan. Transcribed Date/Time: 09/05/2019 10:13 AM
[2019-09-05] MEDS ORDERED: Bisacodyl 5 MG TAB PO PRN (09:54)
[2019-09-05] MEDS ORDERED: Acetaminophen 650 MG Suppository PR PRN (09:54)
[2019-09-05] MEDS ORDERED: Ondansetron PF 4 MG/2 ML Vial IVP PRN (09:54)
[2019-09-05] MEDS ORDERED: Nitroglycerin 0.4 MG TAB (25 Tab Bottle) SL PRN ×2 (09:54→14:32)
[2019-09-05] MEDS ORDERED: Acetaminophen 325 MG TAB PO PRN (09:54)
[2019-09-05] MEDS ORDERED: HYDROcodone/Acetaminophen 5/325 mg Tablet PO PRN (09:57)
[2019-09-05] MEDS ORDERED: Morphine 2 MG/ML SYRINGE SLOW IVP PRN (09:58)
[2019-09-05] MEDS ORDERED: Sodium Chloride 0.9% 10 ML ONE (11:16)
[2019-09-05] MEDS ORDERED: Nystatin Powder 15 GM BOT TOP PRN (12:22)
[2019-09-05] MEDS ORDERED: Citalopram 20 MG TAB PO SCH (12:30)
[2019-09-05] MEDS ORDERED: Lidocaine 1% (PF) 30 ML VIAL ONE (12:53)
--- NOTE | 2019-09-05 13:19 | HP ---
PRIMARY CARE PROVIDER: Raj Hinton MD CHIEF COMPLAINT: Chest pain. HISTORY OF PRESENT ILLNESS: Ms. Chacon is a pleasant 64-year-old lady, who was seen at [facility] on September 05, 2019. She reports that 2 days ago, she developed chest pain. She describes it as retrosternal, occasionally radiating down her left arm, accompanied by shortness of breath, mostly dull, but occasionally sharp, 8/10 at its worst, worse with activity, relieved with rest. She also took nitroglycerin with some relief of the pain. She denies any fevers or chills. She reports having surgery a couple of weeks ago for abdominal hernia, but reports that she has been active at home. She presented to the emergency room because of ongoing chest pain. REVIEW OF SYSTEMS: All systems were reviewed and found to be negative except for the pertinent positives mentioned above. PAST MEDICAL HISTORY: Diabetes mellitus, hypertension, dyslipidemia, congestive heart failure, coronary artery disease, status post PCI with stents and cerebrovascular accident. PAST SURGICAL HISTORY: Coronary artery bypass graft x3, colostomy and reversal, tubal ligation, right ankle surgery, carotid surgery, and cholecystectomy. PSYCHIATRIC HISTORY: Depression. SOCIAL HISTORY: The patient denies any current tobacco use, alcohol use, or recreational drug use. She is a former smoker. FAMILY HISTORY: No family history of premature coronary artery disease. ALLERGIES: LEVOFLOXACIN. CURRENT MEDICATIONS: 1. Lipitor 40 mg at bedtime. 2. Citalopram 40 mg daily. 3. Lasix 20 mg daily as needed. 4. Gabapentin 300 mg at bedtime. 5. Isosorbide mononitrate 60 mg daily. 6. Metformin 1000 mg 2 times a day. 7. Toprol-XL 12.5 mg daily. 8. Nitroglycerin p.r.n. 9. Zofran p.r.n. 10. [place] p.r.n. PHYSICAL EXAMINATION: GENERAL: On examination, Ms. Chacon is awake and alert, not in acute distress. She is obese, with a BMI of 32.3. VITAL SIGNS: Blood pressure is 123/55, pulse 83, respiratory rate 18, and oxygen saturation 95% on room air. She is afebrile. EYES: No scleral icterus. No conjunctival pallor. ENT: Moist mucosal membranes. No oropharyngeal erythema or exudates. NECK: Supple, nontender. Trachea is midline. RESPIRATORY: Accessory muscles of breathing are not active. Chest wall movements are symmetric bilaterally. Lungs are clear to auscultation without wheeze, rhonchi, or crepitations. CARDIOVASCULAR: S1 and S2 are heard, regular. Peripheral pulses palpable. No carotid bruit. No pericardial rub. ABDOMEN: Soft, nontender. Bowel sounds heard. Surgical sites clean. SKIN: No rashes or subcutaneous nodules. LYMPHATIC: No cervical lymphadenopathy. PSYCHIATRIC: Normal mood. Normal affect. The patient is oriented to person, place, and time. LABORATORY DATA: Ms. Chacon' labs and investigations were reviewed. I reviewed her electrocardiogram, which shows normal sinus rhythm, lateral ST depressions. I also reviewed her chest x-ray, which does not show any pulmonary infiltrates. V/Q scan is normal. She has normal white count, microcytic anemia with hemoglobin 10.4, normal platelet count, elevated D-dimer of 1.65, normal electrolytes, normal creatinine, elevated troponin I of 0.942 and normal lipase. Urinalysis is positive for leukocyte esterase. ASSESSMENT AND PLAN: Ms. Chacon is a pleasant 64-year-old lady, who was seen at [facility] on September 05, 2019. Her problem list includes: 1. Non-ST elevation myocardial infarction, type 1: Ms. Chacon is presenting with non-ST elevation myocardial infarction type 1. She has received a dose of Lovenox in the emergency room, 1 mg/kg. She is waiting to be seen by Cardiology Service. She is being monitored on telemetry. We will check 2D echocardiogram to look for any regional wall motion abnormalities. 2. Urinary tract infection: She has been started on ceftriaxone, which I will continue. We will follow urine culture. 3. Diabetes mellitus, type 2: We will start Accu-Cheks and insulin sliding scale. 4. Dyslipidemia: We will continue Lipitor. 5. Hypertension: We will resume home medications, monitor vital signs and titrate antihypertensives as needed. Many thanks for allowing me to participate in your patient's care. Please feel free to contact me with any questions or concerns. LEVEL OF RISK: High. LEVEL OF COMPLEXITY: High. Job ID: [id number]
[2019-09-05] MEDS: Sodium Chloride 0.9% 1,000 ML IV SCH ×3 (13:30→23:46)
[2019-09-05] MEDS ORDERED: Midazolam HCl 2 mg/2 ml Vial ONE (14:07)
[2019-09-05] MEDS ORDERED: Fentanyl 100 MCG/2 ML VIAL ONE (14:08)
[2019-09-05] MEDS ORDERED: Sodium Chloride 0.9% 200 ML IV PRN (14:32)
[2019-09-05] MEDS ORDERED: Acetaminophen/Codeine 30-300mg Tablet PO PRN ×2 (14:32)
[2019-09-05] MEDS ORDERED: Iopamidol 370 76% 100 ML VIAL ONE (14:44)
--- NOTE | 2019-09-05 15:06 | CON ---
DATE OF CONSULTATION: REASON FOR CONSULTATION: Type 1 [place]. HISTORY OF PRESENT ILLNESS: Ms. Chacon is a 64-year-old woman, who has a previous history of CAD, status post bypass surgery 10 years ago, and recently underwent coronary angiography in [place] 2 years ago and was found to have inoperable coronary artery disease per the patient. She recently presented with acute onset chest pain. She had 2 episodes in the last 24 hours. They were relieved with nitroglycerin. She then proceeded to the emergency room. Enzymes have been elevated. Current report is not available. She is currently chest pain free. PAST MEDICAL HISTORY: CAD, status post bypass surgery in [place], [place] in 2007; diabetes mellitus; hyperlipidemia; hypertension; previous stent placement. PAST SURGICAL HISTORY: Recent hernia repair. SOCIAL HISTORY: No current tobacco or alcohol use. ALLERGIES: LEVAQUIN. HOME MEDICATIONS: Include; 1. Lipitor. 2. Citalopram. 3. Lasix. 4. Gabapentin. 5. Isosorbide. 6. Metoprolol. 7. Metformin. 8. Zofran. REVIEW OF SYSTEMS: A 10-point review of systems is reviewed and as above, otherwise negative. PHYSICAL EXAMINATION: GENERAL: Patient is a pleasant female, who is in no acute distress. The patient appears their stated age. VITAL SIGNS: Blood pressure 120/55, pulse 82, temperature 98.1 NEUROLOGIC: The patient is alert and oriented x3 with no focal neurologic deficits. HEENT: Sclerae without icterus. Mouth has moist mucous membranes with normal pallor. NECK: No JVD. Carotid upstroke brisk. No bruits bilaterally. LUNGS: Clear to auscultation with unlabored respirations. BACK: No scoliosis or kyphosis. CARDIAC: Regular rate and rhythm with normal S1 and S2. No S3 or S4 noted. No significant rubs, murmurs, thrills, or gallops noted throughout the precordium. PMI is not displaced. There is no parasternal heave. ABDOMEN: Soft, nontender, nondistended. No peritoneal signs present. No hepatosplenomegaly. No abnormal striae. EXTREMITIES: 2+ femoral and 2+ dorsalis pedis pulses. No cyanosis, clubbing, or edema. SKIN: No gross abnormalities. PERTINENT LABORATORY DATA: Hemoglobin 10.4, hematocrit 31.6. Peak troponin 0.9, CK-MB of 7.4. Creatinine 0.88. Platelet count 245. EKG shows normal sinus rhythm with ST-T wave changes suggesting ischemia, noted laterally. IMPRESSION: 1. Type 1 myocardial infarction. 2. Coronary artery disease. 3. Status post bypass surgery. RECOMMENDATIONS: Ms. Chacon' symptoms appeared to be acute in onset. She had 2 episodes of elevated troponin and CK-MB. She does have a history of previous difficult anatomy for percutaneous intervention per the patient. At this point, given new findings, we would recommend coronary angiography and possible PCI. I discussed procedure in full detail with Ms. Chacon, risks include not limited to following: , stroke, [place], need for emergency surgery, loss of limb, bleeding, and infection, as well as a reaction to the dye causing kidney failure and needing long-term dialysis. I also discussed the risks of PCI to include all of the above including coronary dissection and perforation in addition to acute stent thrombosis and restenosis. All questions about the procedure were answered. Given the above, the patient agreed to proceed with coronary angiography and possible PCI. All questions were answered. Given the above, the patient agreed to proceed with above procedure. Job ID: [id number]
[2019-09-05] MEDS ORDERED: HumaLOG 300 UNITS/3 ML VIAL SC PRN (16:16)
[2019-09-05] MEDS ORDERED: Dextrose 5% in Water 1,000 ML IV PRN (16:16)
[2019-09-05] MEDS ORDERED: Dextrose 50% Abboject 50 ML SYRINGE SLOW IVP PRN (16:16)
[2019-09-05] MEDS: Rivaroxaban 2.5 MG TAB PO SCH (20:55)
[2019-09-05] MEDS ORDERED: Gabapentin 300 MG CAP PO SCH (21:00)
[2019-09-05] MEDS ORDERED: Atorvastatin Calcium 40 MG TAB PO SCH (21:00)
[2019-09-05] MEDS ORDERED: cefTRIAXone\\ROCEPHIN 1 GM in Sodium Chloride 0.9% 100 ML IVPB SCH (23:59)
[2019-09-06] MEDS: Sodium Chloride 0.9% 1,000 ML IV SCH ×2 (00:33→08:37)
[2019-09-06] MEDS: Rivaroxaban 2.5 MG TAB PO SCH (08:36)
[2019-09-06] MEDS ORDERED: Aspirin 81 mg Enteric Coated Tablet PO SCH (09:00)
[2019-09-06] MEDS ORDERED: Citalopram 20 MG TAB PO SCH (09:00)
--- NOTE | 2019-09-06 11:11 | PRG ---
DATE OF SERVICE: 09/06/2019 SUBJECTIVE: Ms. Chacon is doing well. No current complaints of chest pain, pressure, shortness of breath, or associated symptoms. OBJECTIVE: VITAL SIGNS: Blood pressure 147/61, pulse 75, temperature 99. LUNGS: Clear to auscultation. HEART: Regular rate and rhythm. ABDOMEN: Soft, nontender, nondistended. EXTREMITIES: No edema. PERTINENT LABORATORY: None today. IMPRESSION: 1. Type 2 myocardial infarction. 2. Coronary artery disease. 3. Status post bypass surgery. RECOMMENDATIONS: 1. Ms Chacon has severe underlying coronary artery disease (please see cath note). 2. Medical therapy is recommended. No indication for an intervention. This was also reinforced 2 years ago where she underwent coronary angiography. 3. The patient is currently on aspirin and atorvastatin in addition to metoprolol. We will add Xarelto low dose given her severe underlying coronary artery disease not amenable to percutaneous intervention. May also benefit from Ranexa as an outpatient. We will also continue Imdur. 4. From my standpoint, will be okay for discharge. The patient is followed by Dr. Liu Palmer as an outpatient. Job ID: [id number]
[2019-09-06 15:34] VITALS: BP 126/84; TEMP 98.2
--- NOTE | 2019-09-07 00:06 | DIS ---
DATE OF ADMISSION: 09/04/2019 DATE OF DISCHARGE: 09/06/2019 PRIMARY CARE PROVIDER: Raj Hinton MD DISCHARGE DIAGNOSES: 1. Non ST-elevation myocardial infarction type 1. 2. Urinary tract infection. 3. Severe coronary artery disease, medical therapy recommended. CONSULTATIONS DURING THIS HOSPITALIZATION: Cardiology, Dr. Bobby. FOLLOWUP APPOINTMENTS: The patient is advised to follow up with primary care provider on September 11, 2019, at 10:[address] Palmer, Cardiology in 2 to 3 weeks. CONDITION OF PATIENT ON THE DAY OF DISCHARGE: Stable. I assessed Ms. Chacon on the day of discharge. She denies any chest pain or shortness of breath. Vital signs are stable. S1 and S2 are heard, regular. Lungs are clear to auscultation bilaterally. DISCHARGE MEDICATIONS: 1. Lipitor 40 mg at bedtime. 2. Citalopram 40 mg daily. 3. Gabapentin 300 mg at bedtime. 4. Isosorbide mononitrate 60 mg daily. 5. Toprol-XL 12.5 mg daily. 6. Aspirin 81 mg daily. 7. Omnicef 300 mg 2 times a day for one more week. 8. Metformin 1000 mg 2 times a day, to be resumed on September 08, 2019. 9. Rivaroxaban 2.5 mg 2 times a day. 10. Furosemide 20 mg daily as needed. 11. Nitroglycerin p.r.n. 12. Zofran p.r.n. 13. [place] p.r.n. HOSPITAL COURSE: Ms. Chacon is a pleasant 64-year-old lady, who was admitted to [facility] for non ST-elevation myocardial infarction and urinary tract infection on September 05, 2019. She was seen by Cardiology Service. She underwent cardiac catheterization and was found to have severe underlying coronary artery disease. She has been advised medical management. Rivaroxaban has been added to her medications. Her symptoms resolved during this hospitalization. She is being discharged home in a stable condition. Urine cultures grew beta-hemolytic Streptococcus. Many thanks for allowing me to participate in your patient's care. Please feel free to contact me with any questions or concerns. DISCHARGE DESTINATION: Home. TIME SPENT: Total amount of time spent coordinating this discharge: 32 minutes. Job ID: [id number]
--- NOTE | 2019-09-07 23:15 | EKG ---
Test Reason : Blood Pressure : / mmHG Vent. Rate : 086 BPM Atrial Rate : 086 BPM P-R Int : 140 ms QRS Dur : 090 ms QT Int : 404 ms P-R-T Axes : 037 038 142 degrees QTc Int : 483 ms Normal sinus rhythm Prolonged QT Abnormal ECG Confirmed by OTTONIEL GRIDER MD ([id number]), editor book JUDIE IRAHETA ([id number]) on 09/07/2019 11:15:37 PM Referred By: Confirmed By:OTTONIEL GRIDER MD
--- NOTE | 2019-09-09 05:27 | PQF ---
RAUL Evans [id number] CLINICAL DOCUMENTATION CLARIFICATION FORM: POST DISCHARGE Addendum to original discharge summary date: ____ Late entry note date: __ DATE:09-09-2019 ATTN:Dr. Godfrey Griffiths Please exercise your independent, professional judgment in responding to the clarification form. Clinical indicators are provided on the bottom of this form for your review Can you please specify whether Acute CHF is ruled in or ruled out during this encounter? Please check appropriate box(s) to clarify if the following diagnosis has been ruled in or ruled out: Acute CHF [ ] Ruled in diagnosis [ ] Continue to treat [ ] Resolved [ x ] Ruled out diagnosis [ ] Cannot rule out diagnosis [ ] Other diagnosis please specify: [ ] Unable to determine If ruled in can you please specify the type of CHF. [ ] Systolic [ ] Diastolic [ ] Combined For continuity of documentation, please document condition throughout progress notes and discharge summary. Thank You. CLINICAL INDICATORS: ED Notes 09/04 Acute CHF Chest Xray 09/04 "Cardiomegaly and mild portal venous congestion" ED Notes 09/04 "patient presents for evaluation of chest pain" ED Notes 09/04 "presents to the ED c/o CP and SOB" Labs: BNP 339.8 09/04 RISK FACTORS: ED Notes 09/04-64 years old female ED Notes 09/04-DM ED Notes 09/04-HLD ED Notes 09/04-HTN ED Notes 09/04-Former Smoker HP 09/04-CAD HP 09/04-Obesity HP 09/04-NSTEMI TREATMENT: Collected 09/04-Chest Xray Collected 09/04-Echo Tenter 09/04-LHC MAR 09/04-Nitroglycerin 0.4mg Sublingual MAR 09/04-Lasix 40mg Oral (This form is maintained as a part of the permanent medical record) 2014 [employer]. All Rights Reserved [email or web address] [not provided] [id number]
== END 2019-09-06 18:29 | disposition home or self-care (01) | DRG 281 ==
LOC: ERS 21:23 → 2NO 23:00
PROVIDERS: ADMIT Hospitalist; ATTEND Hospitalist
PROC: 4A023N7 Measurement of Cardiac Sampling and Pressure, Left Heart, Percutaneous Approach (ICD-10-PCS; principal; 2019-09-05)
PROC: B2181ZZ Fluoroscopy of Left Internal Mammary Bypass Graft using Low Osmolar Contrast (ICD-10-PCS; 2019-09-05)
PROC: B2111ZZ Fluoroscopy of Multiple Coronary Arteries using Low Osmolar Contrast (ICD-10-PCS; 2019-09-05)
PROC: 3E02340 Introduction of Influenza Vaccine into Muscle, Percutaneous Approach (ICD-10-PCS; 2019-09-05)
DX: I21.4 Non-ST elevation (NSTEMI) myocardial infarction (principal); N39.0 Urinary tract infection, site not specified; E11.9 Type 2 diabetes mellitus without complications; I11.0 Hypertensive heart disease with heart failure; E78.5 Hyperlipidemia, unspecified; F32.9 Major depressive disorder, single episode, unspecified; I25.10 Atherosclerotic heart disease of native coronary artery without angina pectoris; B95.5 Unspecified streptococcus as the cause of diseases classified elsewhere; I50.9 Heart failure, unspecified; Z95.5 Presence of coronary angioplasty implant and graft; Z86.73 Personal history of transient ischemic attack (TIA), and cerebral infarction without residual deficits; Z95.1 Presence of aortocoronary bypass graft; Z93.3 Colostomy status; Z90.49 Acquired absence of other specified parts of digestive tract; Z87.891 Personal history of nicotine dependence; Z88.1 Allergy status to other antibiotic agents; Z88.0 Allergy status to penicillin; Z79.84 Long term (current) use of oral hypoglycemic drugs; Z79.51 Long term (current) use of inhaled steroids; Z98.51 Tubal ligation status; Z79.899 Other long term (current) drug therapy; Z23 Encounter for immunization; E66.9 Obesity, unspecified; Z68.32 Body mass index [BMI] 32.0-32.9, adult
CPT/HCPCS: 36415; 36416; 71045; 76942; 78582; 80053; 81003; 81015; 82550; 82553; 83690; 83880; 84484; 85025; 85379; 87086; 93005; 93306; 93455; 96365; 96372; 96375; 99152; A9540; A9558; C1769; J0696; J1644; J1650; J1940; J2001; J2250; J2270; J2405; J3010; J3490; Q9967

== ENCOUNTER 2019-09-12 20:45 | Observation (INO) | payer MEDICARE ==
[~2019-09-12 20:45] MED LIST: ISOVUE-370 76%-LOCM 1 ML ONE
[2019-09-12] MEDS ORDERED: Ondansetron PF 4 MG/2 ML Vial ONE ×2 (21:34→23:08)
[2019-09-12 21:42] LABS: #Eosinphils 0.1 thou/uL (0.0-0.7); #Lymphocytes 1.7 thou/uL (1.20-3.40); #Monocytes 0.5 thou/uL (0.11-0.59); #Neutrophils 3.8 thou/uL (1.40-6.50); %Basophils 0.3 % (0.0-1.0); %Eosinophils 0.9 % (0.0-10.0); %Lymphocytes 27.7 % (21.0-51.0); %Monocytes 7.9 % (0.0-10.0); %Neutrophils 63.2 % (42.0-75.0); Hemoglobin 7.9 g/dL (12.0-16.0); Mean Corpuscular HGB CONC 32.4 g/dL (32.0-36.0); Mean Corpuscular Hemoglobin 26.4 pg (27.0-31.0); Mean Corpuscular Volume 81.5 fL (78.0-98.0); Mean Platelet Volume 7.7 fL (7.4-10.4); Platelet Count 184 thou/uL (130-400); RBC Distribution Width 19.6 % (11.5-14.5); Red Blood Cell (RBC) Count 3.01 mill/uL (4.20-5.40); White Blood Cell (WBC) Count 6.1 thou/uL (4.8-10.8)
[2019-09-12 22:05] LABS: ALT (SGPT) Less than 7 U/L (8-55); AST (SGOT) 8 U/L (5-34); Albumin 3.6 g/dL (3.4-4.8); Alkaline Phosphatase 84 U/L (40-110); Anion Gap 10 mmol/L (10-20); BUN (Urea Nitrogen) 10 mg/dL (9.8-20.1); Bilirubin, Total 0.4 mg/dL (0.2-1.2); Calc. Creatinine Clearance 0 mL/min (70-130); Carbon Dioxide 26 mmol/L (23-31); Chloride 102 mmol/L (98-107); Estimated GFR-MDRD 65; Globulin 3.9 g/dL (2.4-3.5); Glucose 128 mg/dL (80-115); Lipase 23 U/L (8-78); Potassium 3.9 mmol/L (3.5-5.1); Protein, Total 7.5 g/dL (6.0-8.3); Sodium 134 mmol/L (136-145)
--- NOTE | 2019-09-12 22:22 | CT ---
EXAM: Abdomen and pelvic CT scan with contrast: HISTORY: Abdominal cramping. Recent herniorrhaphy COMPARISON: None FINDINGS: The visualized lung bases are clear. Liver: Unremarkable. Gallbladder: Surgically absent Pancreas: Unremarkable Spleen: Focal hypodensity involves the anterior aspect of the spleen, incompletely characterized. No surrounding perisplenic hematoma. Adrenal glands: Fullness of the left adrenal gland, stable appearing to 11/24/18 CT thorax. Kidneys: No renal calculus or acute obstruction. Small right renal hypodensities are too small to further characterize Bowel: There is no evidence of bowel obstruction. The bowel is incompletely evaluated without enteric contrast. Moderate retained fecal material in the colon. There is multifocal fluid density involving bilateral subcutaneous tissues as well as underlying the ventral abdominal wall within the anterior aspect of the mesenteric fat. The fluid collection underlying the abdominal wall communicates with at least a component of the ventral subcutaneous flui d density collections notably the collection to the right of midline. Minute air locules are seen within the peritoneal fluid collection There is a diffuse surrounding edema of the subcutaneous tissu es, of the mesenteric fat, and there is associated overlying skin thickening of the ventral abdomen. Urinary Bladder: The urinary bladder is unremarkable. Adenopathy: No pathologic enlargement of regional lymph nodes Free Air: No free air. Osseous structures: No acute osseous abnormalities. IMPRESSION: Multifocal fluid collections, a component of which contains air locules, of the ventral subcutaneous tissues and involving the anterior aspect of the peritoneal cavity at least a component of which do demonstrate communication. Patient reports recent herniorrhaphy and therefore postoperative fluid col lection with superimposed infection is suggested given the degree of surrounding inflammation and component of enhancing rinds about the fluid collection. Recommend surgical consultation. Transcribed Date/Time: 09/12/2019 11:46 PM
[2019-09-12] MEDS ORDERED: Morphine 4 MG/ML VIAL ONE (23:08)
[2019-09-12] MEDS ORDERED: Piperacillin/Tazobactam 4.5 GM VIAL ONE (23:26)
[2019-09-12] MEDS ORDERED: Vancomycin HCl 1.5 GM in Sodium Chloride 0.9% 250 ML 300 ML IVPB SCH (23:30)
[2019-09-12 23:59] LABS: Bacteria/HPF None Seen HPF (None Seen); Bilirubin Negative (Negative); Blood, Urine Trace (Negative); Clarity Clear (Clear); Glucose, Urine (Dipstick) Normal (Negative); Leukocyte 500 Leu/uL (Negative); Nitrite Negative (Negative); Protein, Urine (Dipstick) 10 mg/dL (Neg-Trace); RBC/HPF None Seen HPF (0-3); Transitional Epithelial 0-3 HPF (None Seen); Urobilinogen Normal mg/dL (Less than 2); WBC/HPF 21-50 HPF (0-3)
[2019-09-13 01:49] VITALS: BMI 32.3
[2019-09-13] MEDS ORDERED: Ondansetron ODT 4 MG TAB SL PRN (01:49)
[2019-09-13] MEDS ORDERED: Ondansetron PF 4 MG/2 ML Vial IVP PRN (01:49)
[2019-09-13] MEDS ORDERED: Acetaminophen 325 MG TAB PO PRN (01:49)
[2019-09-13] MEDS ORDERED: Lactated Ringer's 1,000 ML IV SCH (02:00)
[2019-09-13] MEDS: Morphine 4 MG/ML VIAL SLOW IVP PRN ×2 (02:20→05:58)
[2019-09-13] MEDS: Lactated Ringer's 1,000 ML IV SCH (06:37)
[2019-09-13] MEDS ORDERED: Lidocaine 1% (PF) 30 ML VIAL ONE (09:55)
[2019-09-13] MEDS ORDERED: Lidocaine 1% (PF) 30 ML VIAL NERVE BLCK SCH (10:00)
--- NOTE | 2019-09-13 11:42 | HP ---
CHIEF COMPLAINT: Painful abdominal wall with fever. HISTORY OF PRESENT ILLNESS: This is a 64-year-old female, who underwent a complicated ventral hernia repair on August 19. She had an 8-cm midline hernia and a 12-cm left lower quadrant hernia. She underwent component separation and repair with mesh. She was discharged and did well until about 10 days ago when she was readmitted with chest pain, was found to have a myocardial infarction and congestive heart failure. She had a cardiac catheterization and they started her on Xarelto. She was in the hospital for 3 or 4 days and then discharged and she noticed abdominal swelling and pain. Last night, she developed a fever to 102 degrees associated with nausea, no vomiting. Her bowels are functioning well. She came to the emergency room, where the CT scan of the abdomen revealed multiple fluid collections. PAST MEDICAL HISTORY: Significant for diabetes, heart disease, and stroke. PAST SURGICAL HISTORY: She has had a tubal , colectomy and reversal. MEDICATIONS: 1. Citalopram. 2. Metoprolol. 3. Metformin. 4. Isosorbide. 5. Xarelto. ALLERGIES: SHE HAS ALLERGIES TO LEVAQUIN. FAMILY HISTORY: Heart disease and stroke. SOCIAL HISTORY: No tobacco or alcohol. PHYSICAL EXAMINATION: VITAL SIGNS: Her temperature is 98.2, pulse 64, and blood pressure 119/57. GENERAL: She is awake, alert, does not appear to be in any distress. HEENT: Unremarkable. LUNGS: Clear. HEART: Regular rate and rhythm. ABDOMEN: She has a healing midline incision. There is a second incision in the left lower quadrant that is healing well. There is no overlying skin erythema. There is mild tenderness. There is a definite bulge or mass just on both sides. LABORATORY DATA: Her white count is 6.1, H and H are 7.9 and 24. Her hemoglobin has dropped from 11.1 on 08/[address] scan shows multifocal fluid densities in the subcu tissue and underlying ventral abdominal wall. There is some surrounding inflammation suggesting possible infection. ASSESSMENT: Seromas/possible hematomas, now that she is on Xarelto, possibly infected. PLAN: Needle aspirations for culture. Job ID: [id number]
[2019-09-13] MEDS: Piperacillin/Tazobactam 3.375 GM in Sodium Chloride 0.9% 100 ML IVPB SCH ×3 (12:02→23:25)
[2019-09-13] MEDS: HYDROcodone/Acetaminophen 5/325 mg Tablet PO PRN ×3 (12:02→23:25)
--- NOTE | 2019-09-13 13:03 | OP ---
DATE OF PROCEDURE: 09/13/2019 PREOPERATIVE DIAGNOSIS: Abdominal wall fluid collection with fever. PROCEDURE PERFORMED: Needle aspiration of abdominal wall fluid collection. INDICATIONS: This is a 64-year-old female, who a month ago had a complex ventral hernia repair with mesh. She has very poor cardiac reserve and had a congestive heart failure and a myocardial infarction 3 weeks postop. She was given Eliquis and her hemoglobin dropped from 11 to 7.9. She reported fever to 102 degrees last night and came to the emergency room. CT scan showed several fluid collections in the region of her hernia repairs, that appeared to communicate and had some inflammatory response, possibly infected. FINDINGS: 20 mL of a clear grayish brown fluid removed. It did not appear to be grossly infected. It was sent for culture and sensitivity and Gram stain. DESCRIPTION OF PROCEDURE: After informed consent was obtained, the patient was placed in the supine position. Her abdomen was prepped and draped in the usual fashion. Local anesthesia with 1% lidocaine was infiltrated. A 16-gauge angiocatheter was inserted within the fluid collection and a clear brownish fluid came out. This was aspirated and was able to retrieve about 20 mL from this. This was sent to the lab for culture and sensitivity and Gram stain. There was no bleeding. Sterile bandage was applied. The patient tolerated the procedure well. Job ID: [id number]
[2019-09-13] MEDS ORDERED: Furosemide 20 MG TAB PO PRN (16:23)
[2019-09-13] MEDS ORDERED: Ondansetron ODT 4 MG TAB PO PRN (16:26)
[2019-09-13] MEDS ORDERED: Nitroglycerin 0.4 MG TAB (25 Tab Bottle) SL PRN (16:26)
[2019-09-13] MEDS: metFORMIN 500 MG TAB PO SCH (16:35)
[2019-09-13] MEDS ORDERED: Atorvastatin Calcium 40 MG TAB PO SCH (21:00)
[2019-09-13] MEDS ORDERED: Gabapentin 300 MG CAP PO SCH (21:00)
[2019-09-13] MEDS ORDERED: FLU VACC TS2019-20(65YR UP)/PF 180 MCG/0.5 ML SYRINGE IM ONE (21:00)
[2019-09-14] MEDS: Lactated Ringer's 1,000 ML IV SCH ×2 (00:53→08:55)
[2019-09-14 04:51] LABS: #Eosinphils 0.2 thou/uL (0.0-0.7); #Lymphocytes 1.6 thou/uL (1.20-3.40); #Monocytes 0.5 thou/uL (0.11-0.59); #Neutrophils 3.4 thou/uL (1.40-6.50); %Basophils 0.5 % (0.0-1.0); %Eosinophils 3.6 % (0.0-10.0); %Lymphocytes 28.2 % (21.0-51.0); %Monocytes 9.2 % (0.0-10.0); %Neutrophils 58.6 % (42.0-75.0); Hemoglobin 7.7 g/dL (12.0-16.0); Mean Corpuscular HGB CONC 30.9 g/dL (32.0-36.0); Mean Corpuscular Hemoglobin 25.2 pg (27.0-31.0); Mean Corpuscular Volume 81.3 fL (78.0-98.0); Mean Platelet Volume 7.9 fL (7.4-10.4); Platelet Count 194 thou/uL (130-400); RBC Distribution Width 19.7 % (11.5-14.5); Red Blood Cell (RBC) Count 3.07 mill/uL (4.20-5.40); White Blood Cell (WBC) Count 5.8 thou/uL (4.8-10.8)
[2019-09-14] MEDS: Piperacillin/Tazobactam 3.375 GM in Sodium Chloride 0.9% 100 ML IVPB SCH ×2 (05:18→11:59)
[2019-09-14] MEDS: HYDROcodone/Acetaminophen 5/325 mg Tablet PO PRN (05:21)
[2019-09-14 07:48] VITALS: BP 132/74; TEMP 98
[2019-09-14] MEDS: metFORMIN 500 MG TAB PO SCH (08:55)
[2019-09-14] MEDS ORDERED: Citalopram 20 MG TAB PO SCH (09:00)
--- NOTE | 2019-09-16 13:38 | DIS ---
DATE OF ADMISSION: 09/13/2019 DATE OF DISCHARGE: 09/14/2019 DISCHARGE DIAGNOSES: 1. Abdominal wall seroma. 2. Congestive heart failure. PROCEDURE DURING ADMISSION: Percutaneous needle aspiration of seroma. HOSPITAL COURSE: The patient was admitted. CT scan showed this fluid collection and possible infection. I will review that with the radiologist and they felt like it did not appear to be infected. I wind up after I did a needle aspiration, which was serous. Cultures did not grow any bacteria. She feels fine now. She has been afebrile. LABORATORY DATA: Her white count remains normal. DISCHARGE INSTRUCTIONS: She is discharged home on her usual medications with the addition of doxycycline monohydrate 100 p.o. b.i.d. for 14 days. She will follow up with me in 2 weeks. Job ID: [id number]
== END 2019-09-14 11:53 | disposition home or self-care (01) ==
LOC: ERS 20:45 → SURG A 09-13 01:23
PROVIDERS: ADMIT Surgery; ATTEND Surgery
PROC: [UNRECOGNIZED PROCEDURE] (principal; 2019-09-13)
DX: K91.872 Postprocedural seroma of a digestive system organ or structure following a digestive system procedure (principal); E11.9 Type 2 diabetes mellitus without complications; I11.0 Hypertensive heart disease with heart failure; I50.9 Heart failure, unspecified; E78.5 Hyperlipidemia, unspecified; Z79.01 Long term (current) use of anticoagulants; Z79.4 Long term (current) use of insulin; Z79.899 Other long term (current) drug therapy; Z86.73 Personal history of transient ischemic attack (TIA), and cerebral infarction without residual deficits; Z87.891 Personal history of nicotine dependence; Z88.1 Allergy status to other antibiotic agents; Z95.5 Presence of coronary angioplasty implant and graft
CPT/HCPCS: 10030; 74177; 80053; 81003; 81015; 82962 ×2; 83690; 85025 ×2; 87040; 87070; 87205; 90662; 94760; 96361; 96365; 96366 ×2; 96367; 96375; 96376 ×2; 99285; G0008; G0378 ×4; 36415; 36416; 90471; J2001; J2270; J2405; J2543; J3370; J3490; J7050

== ENCOUNTER 2019-11-04 21:08 | Inpatient (IN) | payer MEDICARE ==
[~2019-11-04 21:08] MED LIST changes: -ISOVUE-370 76%-LOCM 1 ML ONE; +Iopamidol 370 76% 100 ML VIAL ONE
[2019-11-04] MEDS ORDERED: Ondansetron ODT 4 MG TAB ONE (22:47)
[2019-11-04 23:08] LABS: #Lymphocytes 1.6 thou/uL (1.20-3.40); #Monocytes 0.6 thou/uL (0.11-0.59); #Neutrophils 5.3 thou/uL (1.40-6.50); %Basophils 0.6 % (0.0-1.0); %Eosinophils 0.3 % (0.0-10.0); %Lymphocytes 21.3 % (21.0-51.0); %Monocytes 7.7 % (0.0-10.0); %Neutrophils 70.1 % (42.0-75.0); Hemoglobin 11.8 g/dL (12.0-16.0); Mean Corpuscular HGB CONC 33.8 g/dL (32.0-36.0); Mean Corpuscular Hemoglobin 27.4 pg (27.0-31.0); Mean Corpuscular Volume 81.1 fL (78.0-98.0); Platelet Count 210 thou/uL (130-400); RBC Distribution Width 15.9 % (11.5-14.5); Red Blood Cell (RBC) Count 4.31 mill/uL (4.20-5.40); White Blood Cell (WBC) Count 7.6 thou/uL (4.8-10.8)
[2019-11-04 23:32] LABS: ALT (SGPT) 22 U/L (8-55); AST (SGOT) 26 U/L (5-34); Albumin 4.3 g/dL (3.4-4.8); Alkaline Phosphatase 138 U/L (40-110); Anion Gap 15 mmol/L (10-20); BUN (Urea Nitrogen) 15 mg/dL (9.8-20.1); Bilirubin, Total 0.4 mg/dL (0.2-1.2); Calc. Creatinine Clearance 0 mL/min (70-130); Calcium 9.7 mg/dL (7.8-10.44); Carbon Dioxide 20 mmol/L (23-31); Chloride 103 mmol/L (98-107); Estimated GFR-MDRD 46; Globulin 4.3 g/dL (2.4-3.5); Glucose 168 mg/dL (80-115); Lipase 28 U/L (8-78); Potassium 3.9 mmol/L (3.5-5.1); Protein, Total 8.6 g/dL (6.0-8.3); Sodium 134 mmol/L (136-145)
[2019-11-05] MEDS ORDERED: Nitroglycerin 2% Ointment 1 INCH/1 GM Packet ONE (01:12)
[2019-11-05] MEDS ORDERED: Morphine 4 MG/ML VIAL ONE (01:12)
[2019-11-05 01:14] LABS: Bacteria/HPF 1+ HPF (None Seen); Bilirubin Negative (Negative); Blood, Urine Trace (Negative); Clarity Clear (Clear); Glucose, Urine (Dipstick) Normal (Negative); Leukocyte 500 Leu/uL (Negative); Nitrite Negative (Negative); Protein, Urine (Dipstick) 30 mg/dL (Neg-Trace); Transitional Epithelial 0-3 HPF (None Seen); Urobilinogen Normal mg/dL (Less than 2); WBC/HPF Greater than 50 HPF (0-3)
[2019-11-05] MEDS ORDERED: Ondansetron PF 4 MG/2 ML Vial ONE (01:18)
[2019-11-05 03:23] LABS: Troponin I Less than 0.010 ng/mL (< 0.028)
[2019-11-05] MEDS ORDERED: Acetaminophen 325 MG TAB ONE (06:45)
[2019-11-05 07:03] LABS: Troponin I 0.016 ng/mL (< 0.028)
[2019-11-05] MEDS ORDERED: Acetaminophen 325 MG TAB PO PRN (07:04)
[2019-11-05] MEDS ORDERED: Dextrose 5% in Water 1,000 ML IV PRN (07:04)
[2019-11-05] MEDS ORDERED: Ondansetron ODT 4 MG TAB PO PRN (07:04)
[2019-11-05] MEDS ORDERED: Ondansetron PF 4 MG/2 ML Vial IVP PRN (07:04)
[2019-11-05] MEDS ORDERED: hydrALAZINE 20 MG/ML VIAL SLOW IVP PRN (07:04)
[2019-11-05] MEDS ORDERED: Dextrose 50% Abboject 50 ML SYRINGE SLOW IVP PRN (07:04)
[2019-11-05] MEDS ORDERED: HumaLOG 300 UNITS/3 ML VIAL SC PRN (07:04)
[2019-11-05] MEDS: Enoxaparin Sodium 40 MG/0.4 ML SYRINGE SC SCH (07:49)
--- NOTE | 2019-11-05 08:37 | CON ---
DATE OF CONSULTATION: CHIEF COMPLAINT: Painful mass in left lower abdomen with fever. HISTORY OF PRESENT ILLNESS: The patient is a 64-year-old female. She had a sigmoid colectomy and a Ross's procedure done at an outside institution several years ago, developed an incisional hernia. This was repaired open in July. In August, she presented with fever and a fluid collection in this area. Aspiration was performed that did not grow anything. She did well until the past week when she has been reporting increasing pain in the area, nausea, vomiting, diarrhea, and fever to 103 degrees. She has not been taking her medications including her Eliquis for the last 4 or 5 days. Her last meal was toast yesterday morning. PAST MEDICAL HISTORY: Significant for coronary artery disease, diabetes, and a history of stroke. PAST SURGICAL HISTORY: She has had a tubal , colectomy reversal, and repair of ventral hernia x2. MEDICATIONS: Include; 1. Citalopram. 2. Metoprolol. 3. Metformin. 4. Isosorbide. 5. Xarelto. ALLERGIES: SHE IS ALLERGIC TO LEVAQUIN. FAMILY HISTORY: Heart disease and stroke. SOCIAL HISTORY: No tobacco or alcohol. PHYSICAL EXAMINATION: GENERAL: She is awake and alert, does not appear to be in any distress. VITAL SIGNS: She is currently afebrile, pulse 81, blood pressure is 146/112. HEENT: Unremarkable. LUNGS: Clear. HEART: Regular rate and rhythm. ABDOMEN: Soft. She has about an 8 cm round mass in the left lower quadrant, mild tenderness. No overlying erythema. She has a well-healed surgical scar in the midline. LABORATORY DATA: White count 7.6, H and H 11 and 35, platelet count of 210. Electrolytes; her alkaline phosphatase is elevated at 138. Her troponin is 0.02. Urinalysis; 11 to 20 red cells and greater than [address] scan shows a well-circumscribed fluid collection in the subcutaneous tissue, left lower quadrant that the radiologist is calling a potential abscess. ASSESSMENT: Left lower quadrant fluid collection, previously evaluated as noninfected that possibly could be infected. PLAN: Cardiology consult and possible drainage procedure of this fluid collection. Job ID: [id number]
--- NOTE | 2019-11-05 08:38 | CT ---
PRELIMINARY REPORT/[facility]/EMERGENCY AFTER HOURS PROCEDURE: This report was discussed with Gely Reid MD by Dr. Walter Porter on Nov 05, 2019 01:18:00 SURFACE BOSS. Addendum electronically signed by Citlali Cota on November 05, 2019 1:18:[address] SCAN OF THE ABDOMEN AND PELVIS WITH IV CONTRAST CLINICAL HISTORY: Fever, LUQ abdominal pain, diarrhea TECHNIQUE: Axial images obtained. Coronal images obtained. Sagittal images obtained. Exam is performed with administration of 70 ml of Isovue-370 intravenous contrast. Per PQRS, CT exam is performed using one or more of the following dose reduction technique: Automated exposure control, adjustment of mA and/or KV according to patient size, or use of iterative reconstr uction techniques. COMPARISON: None. FINDINGS: A left lower quadrant anterior abdominal wall focal fluid collection is seen measuring 8.7 cm consist ent with abscess. There is demonstration of thickening of the hamlin of the entire colon consistent with pancolitis. A left adrenal nodule is seen measuring 1.5 cm in diameter with Hounsfield units of 63.4, possible li pid-poor adenoma. Mild intrahepatic biliary ductal dilatation is seen. The common bile duct measures 13 mm in diameter. Cholecystectomy clips are seen. Atherosclerotic calcifications of the abdominal aorta and aortoiliac bifurcation are seen. The rest of the solid organs, viscera, and bones are unremarkable. IMPRESSION: 1. Left lower quadrant anterior abdominal wall abscess. Correlate clinically. 2. Mild pancolitis. Differential considerations include infectious colitis vs pseudomembranous coliti s vs ulcerative colitis. 3. Left adrenal nodule, possible lipid-poor adenoma. Recommend adrenal MRI for further workup. 4. The common bile duct measures 13 mm in diameter. Consider MRCP for further workup. Request for telephone communication was submitted through the [facility] communication system. ELECTRONICALLY SIGNED BY: Walter Porter MD Nov 05, 2019 1:12:38 AM SURFACE BOSS This report is intended for review by the ordering physician only, in accordance of law. If you recei ve this report in error, please call [facility] at [phone]. FINAL REPORT EMERGENCY AFTER HOURS CT ABDOMEN AND PELVIS WITH CONTRAST: Date: 11/04/19 COMPARISON: 09/12/19. FINDINGS/IMPRESSION: I agree with the findings and impression given in the preliminary report per [facility] physici an. 1. There was a left lower quadrant abscess in the abdominal wall. The previously seen multifocal abs cesses within the anterior aspect of the peritoneal cavity and the other abscesses within the abdomin al wall have resolved. 2. Left adrenal nodule. 3. Stable enlargement of common bile duct may be a reservoir effect from prior cholecystectomy.
[2019-11-05] MEDS ORDERED: Vancomycin HCl 1 GM in Premix Bag 1 BAG IVPB SCH (09:00)
[2019-11-05] MEDS ORDERED: Morphine 2 MG/ML SYRINGE SLOW IVP PRN (10:17)
[2019-11-05] MEDS ORDERED: Furosemide 20 MG TAB PO PRN (10:18)
[2019-11-05] MEDS ORDERED: Nitroglycerin 0.4 MG TAB (25 Tab Bottle) SL PRN (10:18)
[2019-11-05] MEDS ORDERED: Citalopram 20 MG TAB PO SCH (10:30)
[2019-11-05 10:45] VITALS: BMI 30.9
--- NOTE | 2019-11-05 11:15 | HP ---
PRIMARY CARE PHYSICIAN: Raj Hinton MD CHIEF COMPLAINT: Pain and swelling in the lower abdomen. HISTORY OF PRESENT ILLNESS: Ms. Chacon is a pleasant 64-year-old female, who has a history of coronary artery disease and diabetes mellitus. She says that she had hernia surgery back in July and following this, she developed a seroma in the abdominal wall. This was about 2 to 3 weeks postop from the hernia surgery. She was seen by the surgeon and the area was drained. It was felt to be not infected and she was discharged home and placed on some empiric antibiotics for few days and then improved and was sent home on few days of the empiric antibiotics. She says that she had been doing well until a couple of days ago. She says on Monday, she started feeling "bad" and was having diarrhea. She also noted that she had a temperature up to 103, and also was noting increasing lower abdominal pain. She says it was a cramping like in character and it was worse after she ate. She says that she had not eaten in several days and yesterday, she tried eating a cracker and after eating the cracker, the pain got extremely bad. She rated it at a 7/10 and she also notes the pain when she tried to turn in certain positions. She also notes a watery diarrhea for the last few days. She cannot quantitate how many times, but says every time she "stood up," she would get diarrhea. There is no blood in it and it was a brown in color, and she also noted a temperature up to 103. REVIEW OF SYSTEMS: All systems were reviewed and are negative except for that mentioned in the history of present illness. PAST MEDICAL HISTORY: Significant for diabetes mellitus, coronary artery disease, cerebrovascular accident, and history of diverticulitis. PAST SURGICAL HISTORY: She has had bilateral tubal ligation, carotid endarterectomy, partial colectomy due to the diverticulitis. She has had coronary artery bypass grafting, three vessels, 15 years ago and also had a colonoscopy. ALLERGIES: TO LEVAQUIN, WHICH CAUSES HIVES AND HER THROAT TO SWELL. SOCIAL HISTORY: She is a nondrinker. Actually, she is a former smoker. She quit seven years ago. She is , and she lives independently with her granddaughter and her great-grandchildren. FAMILY HISTORY: Negative for any heritable diseases. CURRENT MEDICATIONS: 1. Lisinopril 20 mg daily. 2. Lipitor 40 mg daily. 3. Citalopram 40 mg daily. 4. Metformin 1000 mg twice a day. 5. Metoprolol 12.5 mg daily. 6. Isosorbide mononitrate 60 mg daily. PHYSICAL EXAMINATION: GENERAL: She is alert and oriented. She appears to be in no acute distress. VITAL SIGNS: Blood pressure was 138/80, respiratory rate of 16, heart rate is in the 80s, and she is currently afebrile. HEENT: Pupils are equal, round, and reactive. Extraocular muscles are intact. Sclerae are anicteric. Throat; no erythema, no exudates. NECK: No adenopathy. She did have bilateral bruits with the right being much more prominent than the left. CARDIOVASCULAR: She had a normal S1 and S2. No S3 or S4. She did have a grade 2/6 systolic murmur. ABDOMEN: Obese. It is soft. She has midline abdominal scar and on the left mid to lower quadrant, there is a palpable abdominal mass, which is quite large at least 10 to 15 cm in diameter. It is ovoid in shape. There is no surrounding erythema, however. EXTREMITIES: There is no clubbing or cyanosis. She has some trace pedal edema. NEUROLOGICAL: The exam is grossly nonfocal. She is moving all extremities. SKIN AND INTEGUMENT: No skin changes other than that previously mentioned. LABORATORY RESULTS: The white blood cell count is 7.6, hemoglobin 11.8, hematocrit is 35, and platelet count is 210. Sodium is 134, potassium 3.9, chloride is 103, CO2 is 20, BUN of 15, creatinine 1.17, and glucose is 168. Urinalysis is essentially negative other than trace blood and 500 leukocyte esterase. She had a CT scan of the abdomen and pelvis, which demonstrated a large abdominal wall abscess. ASSESSMENT AND PLAN: 1. This is a pleasant 64-year-old female, who has had abdominal surgery for hernia repair and recently had been diagnosed with a seroma and now it appears as if the area could be infected with an abscess. She likely can be admitted to the medical floor now, but her blood pressure stabilized, started on empiric antibiotics and we will consult General Surgery for further evaluation. I suspect she will need I and D of the area. 2. Diabetes mellitus. The patient will be n.p.o. for now. Therefore, we will hold off on her usual medications for diabetes and place her on a sliding scale. 3. Coronary artery disease. This appears to be clinically stable. We will get a baseline EKG in the event that she needs surgery. 4. Cerebral vascular disease. This appears to be clinically stable. 5. The patient will be placed on deep venous thrombosis and gastrointestinal prophylaxis. Job ID: [id number]
[2019-11-05] MEDS: Piperacillin/Tazobactam 3.375 GM in Sodium Chloride 0.9% 100 ML IVPB SCH ×3 (12:28→23:45)
[2019-11-05] MEDS: Nitroglycerin 2% Ointment 1 INCH/1 GM Packet TOP SCH ×2 (13:30→21:58)
--- NOTE | 2019-11-05 16:34 | PRG ---
DATE OF SERVICE: 11/05/2019 The patient is doing fine. Minimal pain. I reviewed her CAT scans with Dr. Ulrich in Radiology. I informed him that I had aspirated this mass about 6 weeks ago and that it contained hematoma and it did not grow anything. When he looked at the films, he said like there was no air in there. There was a little bit of stranding around it. It has gotten mixed echogenicity consistent with hematoma. He says he does not have any evidence it is infected. First of all, she is afebrile here at 98. Her white count is only 7.6. She does have greater than 50 white cells with 11 to 20 red cells and 1+ bacteria consistent with possible UTI. So, she has reason to perhaps have fever, but this mass is basically a contained walled-off hematoma that at this point is not an abscess and then because of her higher risks to do surgery, I feel like it is important to treat urinary tract infection and do not do any kind of surgical treatment on this contained hematoma. Job ID: [id number]
[2019-11-05] MEDS: HumaLOG 300 UNITS/3 ML VIAL SC PRN (17:25)
--- NOTE | 2019-11-05 19:03 | CON ---
DATE OF CONSULTATION: 11/05/2019 REASON FOR CONSULTATION: Preoperative evaluation and angina. HISTORY OF PRESENT ILLNESS: Ms. Chacon is a very pleasant 64-year-old white female, very well known to myself, who comes to the hospital for left lower abdominal pain. She has a diagnosis of coronary artery disease, which is severe. She has had bypass before her disease is nonrevascularizable at that time. She started having nausea, vomiting, and diarrhea in the last few days. Because of the vomiting, she has not been tolerating any of her Imdur. Every time she stops her Imdur, she starts having angina. Because of this, she has been having episodes of chest pain in the last few days. She is finally doing better in this regards and is able to tolerate her pills and got her Imdur this morning and her pain is actually much better. The abdominal mass initially was imaged with a CAT scan and was thought to be an abdominal wall abscess and plan was to try to do incision and drainage of this. More recently, I see that decision has been made, that this is actually a hematoma and because she is not toxic appearing, her white count is not impressively high and her fever has resolved with the first dose of antibiotics and her urine studies are suggestive of a urinary tract infection, she will be treated medically for this. No surgeries planned. PAST MEDICAL HISTORY: 1. Coronary artery disease status post CABG. 2. Type 2 diabetes. 3. Hypertension. 4. Hyperlipidemia. PAST SURGICAL HISTORY: 1. CABG x3 in [place] about 11 years ago, JORDAN to the LAD is the only patent bypass, but it lands to a very diffusely diseased LAD, that is not amenable to any revascularization. Vein graft to an OM and a vein graft to the RCA are both occluded with an occluded [place] RCA. RCA fills from collaterals from the left. Has severe ostial left circumflex with diffuse disease as well, which is not amenable to revascularization. 2. Colostomy reversal. 3. Tubal ligation. 4. Right ankle surgery. SOCIAL HISTORY: Former smoker, but quit eight years ago. No alcohol or drugs. OUTPATIENT MEDICATIONS: 1. Lisinopril 20 mg at bedtime. 2. Atorvastatin 40 mg at bedtime. 3. Aspirin 81 a day. 4. Gabapentin 300 mg at bedtime. 5. Furosemide 20 mg as needed. 6. Citalopram 40 mg a day. 7. Nitroglycerin sublingual p.r.n. 8. Toprol-XL 12.5 mg a day. 9. Imdur 60 mg a day. 10. Metformin 1000 mg p.o. b.i.d. ALLERGIES: VIVIENNE GIVES HER HIVES. FAMILY HISTORY: Noncontributory. REVIEW OF SYSTEMS: A 12-point review of systems was done and was all negative unless stated in the history of present illness. PHYSICAL EXAMINATION: VITAL SIGNS: Temperature 98.0, pulse 72, respiratory rate 20, saturating 100% on room air, and blood pressure 122/67. GENERAL: Awake, alert, and oriented x3, in no distress. HEENT: Normocephalic and atraumatic. NECK: Supple. LUNGS: Clear. CARDIOVASCULAR: S1 and S2. There is a grade 3/6 systolic murmur at the right upper sternal border and a holosystolic murmur at the apex, two different murmurs. ABDOMEN: She has a large about 10 cm x 10 cm palpable mass at the left lower quadrant. This is tender to palpation, but certainly does not look erythematous and it is just mildly tender. No rebound or guarding in the rest of the abdomen. EXTREMITIES: No edema. SKIN: Warm and dry. LABORATORY DATA: Laboratory work was reviewed. CBC with a white count of 7, hemoglobin 11, hematocrit 35, and platelet count of 210. Chemistry with a sodium of 134, potassium 3.9, chloride 103, carbon dioxide of 20, anion gap of 15, BUN 15, creatinine 1.17, GFR 46, glucose mildly elevated at 168, and lactic acid was normal. Troponin is negative x3. Albumin of 4.3. UA with 500 leukocyte esterase, 11 to 20 red cells, greater than 50 white cells, 1+ bacteria, and negative nitrites. Influenza A and B were both negative. CT of the abdomen and pelvis was reviewed. ASSESSMENT: 1. Preoperative evaluation. She is currently high risk for any procedures that are planned given her severe nonrevascularizable coronary artery disease. At this point, no surgery is planned. Medical therapy for her urinary tract infection. She is afebrile since starting antibiotics. 2. Chronic stable angina. This is likely related to not being able to tolerate her Imdur because she had a lot of nausea and vomiting. She has restarted the Imdur and is already feeling much better. 3. Coronary artery disease. 4. Type 2 diabetes. PLAN: 1. Continue home regimen. 2. At this time any surgery would be high risk; however, she may proceed as there is nothing that we can do to reduce the risk in any way. Thank you for letting us to participate in the care of your patient. We will continue to follow. Job ID: [id number]
[2019-11-05] MEDS: Atorvastatin Calcium 40 MG TAB PO SCH (20:30)
[2019-11-05] MEDS: Gabapentin 300 MG CAP PO SCH (20:30)
[2019-11-05] MEDS: Lisinopril 20 MG TAB PO SCH (20:32)
[2019-11-05] MEDS: Melatonin 3 MG TAB PO PRN (21:49)
[2019-11-06] MEDS: Nitroglycerin 2% Ointment 1 INCH/1 GM Packet TOP SCH ×3 (05:48→23:04)
[2019-11-06] MEDS: Piperacillin/Tazobactam 3.375 GM in Sodium Chloride 0.9% 100 ML IVPB SCH ×4 (05:48→23:42)
[2019-11-06 06:43] LABS: #Eosinphils 0.2 thou/uL (0.0-0.7); #Lymphocytes 1.8 thou/uL (1.20-3.40); #Monocytes 0.6 thou/uL (0.11-0.59); #Neutrophils 2.9 thou/uL (1.40-6.50); %Basophils 0.6 % (0.0-1.0); %Lymphocytes 32.2 % (21.0-51.0); %Monocytes 11.2 % (0.0-10.0); Hemoglobin 9.9 g/dL (12.0-16.0); Mean Corpuscular HGB CONC 33.1 g/dL (32.0-36.0); Mean Corpuscular Hemoglobin 27.3 pg (27.0-31.0); Mean Corpuscular Volume 82.2 fL (78.0-98.0); Platelet Count 179 thou/uL (130-400); RBC Distribution Width 15.7 % (11.5-14.5); Red Blood Cell (RBC) Count 3.63 mill/uL (4.20-5.40); White Blood Cell (WBC) Count 5.6 thou/uL (4.8-10.8)
[2019-11-06 07:11] LABS: Glucose 113 mg/dL (80-115)
[2019-11-06 07:14] LABS: Calc. Creatinine Clearance 57 mL/min (70-130); Estimated GFR-MDRD 46
[2019-11-06 07:15] LABS: BUN (Urea Nitrogen) 14 mg/dL (9.8-20.1)
[2019-11-06 07:19] LABS: Anion Gap 14 mmol/L (10-20); Calcium 8.7 mg/dL (7.8-10.44); Carbon Dioxide 15 mmol/L (23-31); Chloride 111 mmol/L (98-107); Potassium 4.1 mmol/L (3.5-5.1); Sodium 136 mmol/L (136-145)
[2019-11-06] MEDS: Enoxaparin Sodium 40 MG/0.4 ML SYRINGE SC SCH (08:26)
[2019-11-06] MEDS: Citalopram 20 MG TAB PO SCH (08:26)
[2019-11-06] MEDS: Vancomycin HCl 1 GM in Premix Bag 1 BAG IVPB SCH (08:28)
[2019-11-06] MEDS ORDERED: Loperamide HCl 2 MG CAP PO PRN (10:31)
[2019-11-06] MEDS ORDERED: Loperamide HCl 2 MG CAP PO SCH (10:45)
[2019-11-06] MEDS: HumaLOG 300 UNITS/3 ML VIAL SC PRN (11:44)
[2019-11-06] MEDS ORDERED: traMADol HCl 50 MG TAB PO PRN (14:11)
[2019-11-06] MEDS: traMADol HCl 50 MG TAB PO PRN (14:26)
--- NOTE | 2019-11-06 17:49 | PDOC.HOSPP ---
- Subjective Encounter Date: 11/06/19 Encounter Time: 08:20 Subjective: Pt seen forfollowup re: abdominal wall abscess. States she feels okay. On and off abdo pain. No chest pain. - Objective Vital Signs & Weight: Vital Signs (12 hours) Temp Pulse Resp BP BP Pulse Ox 11/06/19 14:11 104/50 L 11/06/19 08:00 98.5 F 73 18 117/54 L 100 Weight Admit Weight 169 lb Weight 169 lb I&O: 11/05/19 11/06/19 11/07/19 06:59 06:59 06:59 Intake Total 1100 Balance 1100 Result Diagrams: 11/06/19 06:22 11/06/19 06:22 Additional Labs: Accuchecks 11/06/19 11/06/19 11/06/19 17:04 11:04 04:26 POC Glucose 108 356 H 134 H 11/06/19 11/05/19 02:04 20:14 POC Glucose 129 H 148 H Labs and MARs reviewed by ok Hospitalist ROS - Review of Systems Cardiovascular: denies: chest pain, palpitations, orthopnea, paroxysmal noc. dyspnea, edema, light headedness Gastrointestinal: denies: nausea, vomiting, abdominal pain, diarrhea, constipation, melena, hematochezia - Medication Medications: Active Medications Generic Name Dose Route Start Last Admin Trade Name Freq PRN Reason Stop Dose Admin Atorvastatin Calcium 40 mg 11/05/19 21:00 11/05/19 20:30 Lipitor PO 40 mg HS KOBI Administration Citalopram Hydrobromide 40 mg 11/06/19 09:00 11/06/19 08:26 Celexa PO 40 mg DAILY KOBI Administration Enoxaparin Sodium 40 mg 11/05/19 09:00 11/06/19 08:26 Lovenox SC Not Given 0900 KOBI Gabapentin 300 mg 11/05/19 21:00 11/05/19 20:30 Neurontin PO 300 mg HS KOBI Administration Piperacillin Sod/Tazobactam 100 mls @ 200 mls/hr 11/05/19 12:00 11/06/19 17: 40 Sod 3.375 gm/ Sodium Chloride IVPB 100 mls Q6HR KOBI Administration Vancomycin HCl 1 gm/ Device 200 mls @ 200 mls/hr 11/06/19 09:00 11/06/19 08: 28 IVPB 200 mls 0900 KOBI Administration Insulin Human Lispro 0 units 11/05/19 07:04 11/06/19 11:44 Humalog SC 8 unit .MODERATE SLIDING SC PRN Administration Moderate Correctional Scale Isosorbide Mononitrate 60 mg 11/06/19 09:00 11/06/19 08:26 Imdur PO 60 mg DAILY KOBI Administration Lisinopril 20 mg 11/05/19 21:00 11/05/19 20:32 Zestril PO 20 mg HS KOBI Administration Melatonin 3 mg 11/05/19 19:39 11/05/19 21:49 Melatonin PO 3 mg HS PRN Administration Insomnia Metoprolol Succinate 12.5 mg 11/06/19 09:00 11/06/19 08:27 Toprol Xl PO Not Given DAILY [facility] Morphine Sulfate 2 mg 11/05/19 10:17 11/05/19 22:02 Morphine SLOW IVP 2 mg Q4H PRN Administration Moderate to Severe Pain (6-10) Nitroglycerin 0.5 inch 11/05/19 14:00 11/06/19 14:11 Nitro-Bid 2% Ointment TOP Not Given Q8HR [facility] Ondansetron HCl 4 mg 11/05/19 07:04 11/05/19 17:39 Zofran IVP 4 mg Q6H PRN Administration Nausea/Vomiting Tramadol HCl 100 mg 11/06/19 14:11 11/06/19 14:26 Ultram PO 100 mg Q6H PRN Administration Severe Pain (7-10) - Exam General - other findings: Obese Eye: anicteric sclera ENT: moist mucosa Neck: supple Heart: RRR Respiratory: CTAB Gastrointestinal: soft, non-tender Psychiatric: normal affect, normal behavior Hosp A/P (1) Abdominal wall abscess Code(s): L02.211 - CUTANEOUS ABSCESS OF ABDOMINAL WALL Status: Acute (2) CAD (coronary artery disease) Code(s): I25.10 - ATHSCL HEART DISEASE OF [place] CORONARY ARTERY W/O ANG PCTRS Status: Chronic (3) HTN (hypertension) Code(s): I10 - ESSENTIAL (PRIMARY) HYPERTENSION Status: Chronic - Plan continue antibiotics, out of bed/ambulate Continue IV Zosyn and vancomycin. CAD stable. HTN controlled.
--- NOTE | 2019-11-06 18:57 | PDOC.CPN ---
- Subjective Date: 11/06/19 Time: 18:56 Interval history: No chest pain since restarting imdur. - Review of Systems General: denies: fever/chills, weight/appetite/sleep changes, night sweats, fatigue Respiratory: denies: cough, congestion, shortness of breath, exercise intolerance Cardiovascular: denies: chest pain, palpitation, edema, paroxysmal nocturnal dyspnea, orthopnea Gastrointestinal: reports: diarrhea, abd pain. denies: nausea, vomiting, constipation, GI bleeding Musculoskeletal: denies: pain, tenderness, stiffness, swelling, arthritis/ arthralgias Neurological: denies: numbness, syncope, seizure, weakness - Objective Allergies/Adverse Reactions: Allergies Allergy/AdvReac Type Severity Reaction Status Date / Time levofloxacin [From Levaquin] Allergy Severe Severe Verified 08/14/19 14:58 Hives Visit Medications: Current Medications Acetaminophen (Tylenol) 650 mg PO Q4H PRN PRN Reason: Headache/Fever/Mild Pain (1-3) Atorvastatin Calcium (Lipitor) 40 mg PO [facility] Last Admin: 11/05/19 20:30 Dose: 40 mg Citalopram Hydrobromide (Celexa) 40 mg PO DAILY [facility] Last Admin: 11/06/19 08:26 Dose: 40 mg Dextrose/Water (Dextrose 50%) 25 gm SLOW IVP PRN PRN PRN Reason: Hypoglycemia Enoxaparin Sodium (Lovenox) 40 mg SC 0900 [facility] Last Admin: 11/06/19 08:26 Dose: Not Given Furosemide (Lasix) 20 mg PO QAM PRN PRN Reason: Edema Gabapentin (Neurontin) 300 mg PO [facility] Last Admin: 11/05/19 20:30 Dose: 300 mg Glucagon (Glucagon) 1 mg IM PRN PRN PRN Reason: Hypoglycemia Hydralazine HCl (Apresoline) 10 mg SLOW IVP Q4H PRN PRN Reason: SBP > 180 and HR < 70 Dextrose/Water (D5w) 1,000 mls @ 0 mls/hr IV .Q0M PRN PRN Reason: Hypoglycemia Piperacillin Sod/Tazobactam (Sod 3.375 gm/ Sodium Chloride) 100 mls @ 200 mls/ hr IVPB Q6HR [facility] Last Admin: 11/06/19 17:40 Dose: 100 mls Vancomycin HCl 1 gm/ Device 200 mls @ 200 mls/hr IVPB 0900 [facility] Last Admin: 11/06/19 08:28 Dose: 200 mls Insulin Human Lispro (Humalog) 0 units SC .MODERATE SLIDING SC PRN PRN Reason: Moderate Correctional Scale Last Admin: 11/06/19 11:44 Dose: 8 unit Insulin Human Lispro (Humalog) 0 units SC .BEDTIME SLIDING SC PRN PRN Reason: Bedtime Correctional Scale Isosorbide Mononitrate (Imdur) 60 mg PO DAILY [facility] Last Admin: 11/06/19 08:26 Dose: 60 mg Lisinopril (Zestril) 20 mg PO HS [facility] Last Admin: 11/05/19 20:32 Dose: 20 mg Loperamide HCl (Imodium) 2 mg PO PRN PRN PRN Reason: Diarrhea/Loose Stools Melatonin (Melatonin) 3 mg PO HS PRN PRN Reason: Insomnia Last Admin: 11/05/19 21:49 Dose: 3 mg Metoprolol Succinate (Toprol Xl) 12.5 mg PO DAILY [facility] Last Admin: 11/06/19 08:27 Dose: Not Given Miscellaneous Medication (Pharmacy To Dose) 1 each IVPB PRN PRN PRN Reason: Pharmacy to dose Morphine Sulfate (Morphine) 2 mg SLOW IVP Q4H PRN PRN Reason: Moderate to Severe Pain (6-10) Last Admin: 11/05/19 22:02 Dose: 2 mg Nitroglycerin (Nitro-Bid 2% Ointment) 0.5 inch TOP Q8HR [facility] Last Admin: 11/06/19 14:11 Dose: Not Given Nitroglycerin (Nitrostat) 0.4 mg SL ASDIR PRN PRN Reason: Chest Pain Ondansetron HCl (Zofran Odt) 4 mg PO Q6H PRN PRN Reason: Nausea/Vomiting Ondansetron HCl (Zofran) 4 mg IVP Q6H PRN PRN Reason: Nausea/Vomiting Last Admin: 11/05/19 17:39 Dose: 4 mg Tramadol HCl (Ultram) 50 mg PO Q6H PRN PRN Reason: Moderate Pain (4-6) Tramadol HCl (Ultram) 100 mg PO Q6H PRN PRN Reason: Severe Pain (7-10) Last Admin: 11/06/19 14:26 Dose: 100 mg Vital Signs & Weight: Vital Signs Temp Pulse Resp BP BP Pulse Ox 11/06/19 14:11 104/50 L 11/06/19 08:00 98.5 F 73 18 117/54 L 100 Admit Weight 169 lb Weight 169 lb - Labs Result Diagrams: 11/06/19 06:22 11/06/19 06:22 Troponin/CKMB Troponin I 0.016 ng/mL (< 0.028) 11/05/19 06:12 - Assessment/Plan Assessment/Plan: 1. Stable chronic angina. 2. Abdominal wall hematoma/seroma/ 3. Colitis/diarrhea PLAN: - Cv stable. - Continue Imdur as per outpatient.
[2019-11-06] MEDS: Atorvastatin Calcium 40 MG TAB PO SCH (20:22)
[2019-11-06] MEDS: Gabapentin 300 MG CAP PO SCH (20:22)
[2019-11-06] MEDS: Lisinopril 20 MG TAB PO SCH (20:22)
[2019-11-07] MEDS: Nitroglycerin 2% Ointment 1 INCH/1 GM Packet TOP SCH ×3 (05:46→20:28)
[2019-11-07] MEDS: Piperacillin/Tazobactam 3.375 GM in Sodium Chloride 0.9% 100 ML IVPB SCH (05:47)
[2019-11-07 08:26] LABS: Vancomycin, Trough 14.8 ug/mL
[2019-11-07] MEDS: Enoxaparin Sodium 40 MG/0.4 ML SYRINGE SC SCH (08:55)
[2019-11-07] MEDS: Citalopram 20 MG TAB PO SCH (08:56)
[2019-11-07] MEDS: Vancomycin HCl 1 GM in Premix Bag 1 BAG IVPB SCH (08:57)
[2019-11-07] MEDS ORDERED: Cefdinir 300 MG CAP PO SCH (10:45)
[2019-11-07 10:57] LABS: #Eosinphils 0.2 thou/uL (0.0-0.7); #Lymphocytes 1.6 thou/uL (1.20-3.40); #Monocytes 0.6 thou/uL (0.11-0.59); #Neutrophils 4.4 thou/uL (1.40-6.50); %Basophils 0.4 % (0.0-1.0); %Lymphocytes 23.3 % (21.0-51.0); %Monocytes 8.7 % (0.0-10.0); %Neutrophils 64.6 % (42.0-75.0); Mean Corpuscular HGB CONC 32.2 g/dL (32.0-36.0); Mean Corpuscular Hemoglobin 26.3 pg (27.0-31.0); Mean Corpuscular Volume 81.8 fL (78.0-98.0); Mean Platelet Volume 7.5 fL (7.4-10.4); Platelet Count 179 thou/uL (130-400); RBC Distribution Width 15.6 % (11.5-14.5); Red Blood Cell (RBC) Count 3.78 mill/uL (4.20-5.40); White Blood Cell (WBC) Count 6.7 thou/uL (4.8-10.8)
[2019-11-07 11:29] LABS: Anion Gap 11 mmol/L (10-20); BUN (Urea Nitrogen) 15 mg/dL (9.8-20.1); Calc. Creatinine Clearance 48 mL/min (70-130); Calcium 9.3 mg/dL (7.8-10.44); Carbon Dioxide 22 mmol/L (23-31); Chloride 108 mmol/L (98-107); Estimated GFR-MDRD 37; Glucose 136 mg/dL (80-115); Potassium 3.4 mmol/L (3.5-5.1); Sodium 138 mmol/L (136-145)
[2019-11-07] MEDS ORDERED: Potassium Chloride 20 MEQ TAB PO SCH (15:15)
[2019-11-07] MEDS ORDERED: Sodium Chloride 0.9% 1,000 ML IV SCH (15:15)
[2019-11-07] MEDS: Sodium Chloride 0.9% 1,000 ML IV SCH (15:24)
--- NOTE | 2019-11-07 15:52 | PDOC.HOSPP ---
- Subjective Encounter Date: 11/07/19 Encounter Time: 15:50 Subjective: Pt seen for followup re:UTI. Feels well, no compalints today. - Objective Vital Signs & Weight: Vital Signs (12 hours) Temp Pulse Resp BP Pulse Ox 11/07/19 08:00 100 11/07/19 07:23 98.7 F 70 16 114/70 100 11/07/19 04:00 98.4 F 67 20 123/71 97 Weight Admit Weight 169 lb Weight 169 lb I&O: 11/06/19 11/07/19 11/08/19 06:59 06:59 06:59 Intake Total 1100 Balance 1100 Result Diagrams: 11/07/19 10:40 11/07/19 10:40 Additional Labs: Accuchecks 11/07/19 11/07/19 11/06/19 11:44 05:18 20:12 POC Glucose 152 H 115 H 190 H 11/06/19 17:04 POC Glucose 108 Labs and MARs reviewed by [place] Hospitalist ROS - Review of Systems Gastrointestinal: denies: nausea, vomiting, abdominal pain, diarrhea, constipation, melena, hematochezia Genitourinary: denies: dysuria, frequency, incontinence, hematuria, retention - Medication Medications: Active Medications Generic Name Dose Route Start Last Admin Trade Name Freq PRN Reason Stop Dose Admin Atorvastatin Calcium 40 mg 11/05/19 21:00 11/06/19 20:22 Lipitor PO 40 mg HS [facility] Administration Citalopram Hydrobromide 40 mg 11/06/19 09:00 11/07/19 08:56 Celexa PO 40 mg DAILY [facility] Administration Enoxaparin Sodium 40 mg 11/05/19 09:00 11/07/19 08:55 Lovenox SC Not Given 0900 [facility] Gabapentin 300 mg 11/05/19 21:00 11/06/19 20:22 Neurontin PO 300 mg HS [facility] Administration Sodium Chloride 1,000 mls @ 100 mls/hr 11/07/19 15:15 11/07/19 15:24 Normal Saline 0.9% IV 1,000 mls .Q10H [facility] Administration Insulin Human Lispro 0 units 11/05/19 07:04 11/06/19 11:44 Humalog SC 8 unit .MODERATE SLIDING SC PRN Administration Moderate Correctional Scale Isosorbide Mononitrate 60 mg 11/06/19 09:00 11/07/19 08:56 Imdur PO 60 mg DAILY [facility] Administration Loperamide HCl 2 mg 11/06/19 10:31 11/06/19 20:28 Imodium PO 2 mg PRN PRN Administration Diarrhea/Loose Stools Melatonin 3 mg 11/05/19 19:39 11/05/19 21:49 Melatonin PO 3 mg HS PRN Administration Insomnia Metoprolol Succinate 12.5 mg 11/06/19 09:00 11/07/19 09:18 Toprol Xl PO Not Given DAILY [facility] Morphine Sulfate 2 mg 11/05/19 10:17 11/05/19 22:02 Morphine SLOW IVP 2 mg Q4H PRN Administration Moderate to Severe Pain (6-10) Nitroglycerin 0.5 inch 11/05/19 14:00 11/07/19 14:15 Nitro-Bid 2% Ointment TOP Not Given Q8HR [facility] Ondansetron HCl 4 mg 11/05/19 07:04 11/05/19 17:39 Zofran IVP 4 mg Q6H PRN Administration Nausea/Vomiting Potassium Chloride 40 meq 11/07/19 15:15 11/07/19 15:06 K-Dur PO 11/07/19 17:15 40 meq NOW [facility] Administration Tramadol HCl 50 mg 11/06/19 14:11 11/06/19 23:41 Ultram PO 50 mg Q6H PRN Administration Moderate Pain (4-6) Tramadol HCl 100 mg 11/06/19 14:11 11/06/19 14:26 Ultram PO 100 mg Q6H PRN Administration Severe Pain (7-10) - Exam General - other findings: Obese Eye: anicteric sclera ENT: moist mucosa Neck: supple, symmetric Heart: RRR, no rubs Respiratory: CTAB, no rales, no ronchi Gastrointestinal: soft, non-tender Musculoskeletal: no muscle wasting Psychiatric: normal affect, normal behavior Hosp A/P (1) UTI (urinary tract infection) Status: Acute Plan: Present on admission (2) PRAVIN (acute kidney injury) Code(s): N17.9 - ACUTE KIDNEY FAILURE, UNSPECIFIED Status: Acute (3) CAD (coronary artery disease) Code(s): I25.10 - ATHSCL HEART DISEASE OF [place] CORONARY ARTERY W/O ANG PCTRS Status: Chronic (4) HTN (hypertension) Code(s): I10 - ESSENTIAL (PRIMARY) HYPERTENSION Status: Chronic (5) Abdominal wall abscess Code(s): L02.211 - CUTANEOUS ABSCESS OF ABDOMINAL WALL Status: Ruled-out - Plan Beta hemolytic streptococcus UTI, start cefdinir. Renal function worse, start IV hydration, hold lisinopril. CAD stable. HTN controlled.
[2019-11-07] MEDS: HumaLOG 300 UNITS/3 ML VIAL SC PRN (18:42)
--- NOTE | 2019-11-07 19:16 | PDOC.CPN ---
- Subjective Date: 11/07/19 Time: 19:14 Interval history: She is doing much better. Still no chest pain. Diarchy improved. - Review of Systems General: denies: fever/chills, weight/appetite/sleep changes, night sweats, fatigue Respiratory: denies: cough, congestion, shortness of breath, exercise intolerance Cardiovascular: denies: chest pain, palpitation, edema, paroxysmal nocturnal dyspnea, orthopnea Gastrointestinal: reports: abd pain. denies: nausea, vomiting, diarrhea, constipation, GI bleeding Musculoskeletal: reports: pain. denies: tenderness, stiffness, swelling, arthritis/arthralgias Neurological: denies: numbness, syncope, seizure, weakness - Objective Allergies/Adverse Reactions: Allergies Allergy/AdvReac Type Severity Reaction Status Date / Time levofloxacin [From Levaquin] Allergy Severe Severe Verified 08/14/19 14:58 Hives Visit Medications: Current Medications Acetaminophen (Tylenol) 650 mg PO Q4H PRN PRN Reason: Headache/Fever/Mild Pain (1-3) Atorvastatin Calcium (Lipitor) 40 mg PO [facility] Last Admin: 11/06/19 20:22 Dose: 40 mg Cefdinir (Omnicef) 300 mg PO BID [facility] Citalopram Hydrobromide (Celexa) 40 mg PO DAILY [facility] Last Admin: 11/07/19 08:56 Dose: 40 mg Dextrose/Water (Dextrose 50%) 25 gm SLOW IVP PRN PRN PRN Reason: Hypoglycemia Enoxaparin Sodium (Lovenox) 40 mg SC 0900 [facility] Last Admin: 11/07/19 08:55 Dose: Not Given Furosemide (Lasix) 20 mg PO QAM PRN PRN Reason: Edema Gabapentin (Neurontin) 300 mg PO [facility] Last Admin: 11/06/19 20:22 Dose: 300 mg Glucagon (Glucagon) 1 mg IM PRN PRN PRN Reason: Hypoglycemia Hydralazine HCl (Apresoline) 10 mg SLOW IVP Q4H PRN PRN Reason: SBP > 180 and HR < 70 Dextrose/Water (D5w) 1,000 mls @ 0 mls/hr IV .Q0M PRN PRN Reason: Hypoglycemia Sodium Chloride (Normal Saline 0.9%) 1,000 mls @ 100 mls/hr IV .Q10H [facility] Last Admin: 11/07/19 15:24 Dose: 1,000 mls Insulin Human Lispro (Humalog) 0 units SC .MODERATE SLIDING SC PRN PRN Reason: Moderate Correctional Scale Last Admin: 11/07/19 18:42 Dose: 4 unit Insulin Human Lispro (Humalog) 0 units SC .BEDTIME SLIDING SC PRN PRN Reason: Bedtime Correctional Scale Isosorbide Mononitrate (Imdur) 60 mg PO DAILY [facility] Last Admin: 11/07/19 08:56 Dose: 60 mg Loperamide HCl (Imodium) 2 mg PO PRN PRN PRN Reason: Diarrhea/Loose Stools Last Admin: 11/06/19 20:28 Dose: 2 mg Melatonin (Melatonin) 3 mg PO HS PRN PRN Reason: Insomnia Last Admin: 11/05/19 21:49 Dose: 3 mg Metoprolol Succinate (Toprol Xl) 12.5 mg PO DAILY [facility] Last Admin: 11/07/19 09:18 Dose: Not Given Morphine Sulfate (Morphine) 2 mg SLOW IVP Q4H PRN PRN Reason: Moderate to Severe Pain (6-10) Last Admin: 11/05/19 22:02 Dose: 2 mg Nitroglycerin (Nitro-Bid 2% Ointment) 0.5 inch TOP Q8HR [facility] Last Admin: 11/07/19 14:15 Dose: Not Given Nitroglycerin (Nitrostat) 0.4 mg SL ASDIR PRN PRN Reason: Chest Pain Ondansetron HCl (Zofran Odt) 4 mg PO Q6H PRN PRN Reason: Nausea/Vomiting Ondansetron HCl (Zofran) 4 mg IVP Q6H PRN PRN Reason: Nausea/Vomiting Last Admin: 11/05/19 17:39 Dose: 4 mg Tramadol HCl (Ultram) 50 mg PO Q6H PRN PRN Reason: Moderate Pain (4-6) Last Admin: 11/06/19 23:41 Dose: 50 mg Tramadol HCl (Ultram) 100 mg PO Q6H PRN PRN Reason: Severe Pain (7-10) Last Admin: 11/06/19 14:26 Dose: 100 mg Vital Signs & Weight: Vital Signs Temp Pulse Resp BP Pulse Ox 11/07/19 08:00 100 11/07/19 07:23 98.7 F 70 16 114/70 100 Admit Weight 169 lb Weight 169 lb - Physical Exam General: alert & oriented x3 HEENT: mucus membranes moist Neck: supple neck Cardiac: no murmur Lungs: clear to auscultation Neuro: grossly intact Abdomen: active bowel sounds Extremities: no edema Skin: clear Musculoskeletal: no pain - Labs Result Diagrams: 11/07/19 10:40 11/07/19 10:40 Troponin/CKMB Troponin I 0.016 ng/mL (< 0.028) 11/05/19 06:12 - Assessment/Plan Assessment/Plan: 1. Stable chronic angina. 2. Abdominal wall hematoma/seroma 3. Colitis/diarrhea PLAN: - CV stable. - Continue Imdur as per outpatient. - Will sign off. please call with any questions.
[2019-11-07] MEDS: Atorvastatin Calcium 40 MG TAB PO SCH (20:26)
[2019-11-07] MEDS: Cefdinir 300 MG CAP PO SCH (20:26)
[2019-11-07] MEDS: Gabapentin 300 MG CAP PO SCH (20:26)
[2019-11-07] MEDS: traMADol HCl 50 MG TAB PO PRN (21:24)
[2019-11-07] MEDS: Melatonin 3 MG TAB PO PRN (23:30)
[2019-11-08] MEDS: Sodium Chloride 0.9% 1,000 ML IV SCH ×2 (05:50→12:23)
[2019-11-08 06:24] LABS: #Eosinphils 0.2 thou/uL (0.0-0.7); #Lymphocytes 2.1 thou/uL (1.20-3.40); #Monocytes 0.8 thou/uL (0.11-0.59); #Neutrophils 4.8 thou/uL (1.40-6.50); %Basophils 0.4 % (0.0-1.0); %Eosinophils 2.4 % (0.0-10.0); %Lymphocytes 26.8 % (21.0-51.0); %Monocytes 9.6 % (0.0-10.0); %Neutrophils 60.8 % (42.0-75.0); Hemoglobin 9.4 g/dL (12.0-16.0); Mean Corpuscular HGB CONC 33.5 g/dL (32.0-36.0); Mean Corpuscular Hemoglobin 27.3 pg (27.0-31.0); Mean Corpuscular Volume 81.5 fL (78.0-98.0); Mean Platelet Volume 7.7 fL (7.4-10.4); Platelet Count 181 thou/uL (130-400); RBC Distribution Width 15.5 % (11.5-14.5); Red Blood Cell (RBC) Count 3.45 mill/uL (4.20-5.40); White Blood Cell (WBC) Count 7.9 thou/uL (4.8-10.8)
[2019-11-08 06:51] LABS: Anion Gap 11 mmol/L (10-20); BUN (Urea Nitrogen) 12 mg/dL (9.8-20.1); Calc. Creatinine Clearance 77 mL/min (70-130); Calcium 8.5 mg/dL (7.8-10.44); Carbon Dioxide 19 mmol/L (23-31); Chloride 114 mmol/L (98-107); Estimated GFR-MDRD 64; Glucose 127 mg/dL (80-115); Potassium 3.6 mmol/L (3.5-5.1); Sodium 140 mmol/L (136-145)
[2019-11-08] MEDS: Nitroglycerin 2% Ointment 1 INCH/1 GM Packet TOP SCH (06:53)
[2019-11-08] MEDS: Citalopram 20 MG TAB PO SCH (08:50)
[2019-11-08] MEDS: Cefdinir 300 MG CAP PO SCH (08:50)
[2019-11-08] MEDS: Enoxaparin Sodium 40 MG/0.4 ML SYRINGE SC SCH (08:52)
[2019-11-08 12:47] VITALS: BP 149/80; TEMP 98.9
--- NOTE | 2019-11-08 13:56 | DIS ---
DATE OF ADMISSION: 11/05/2019 DATE OF DISCHARGE: 11/07/2019 PRIMARY CARE PROVIDER: Raj Hinton MD DISCHARGE DIAGNOSES: 1. Urinary tract infection. 2. Abdominal wall seroma. 3. Hypokalemia. CONDITION OF PATIENT ON THE DAY OF DISCHARGE: Stable. I assessed Ms. Chacon on the day of discharge. She denies any chest pain or shortness of breath. Vital signs are stable. S1 and S2 are heard, regular. Lungs are clear to auscultation bilaterally. CONSULTATIONS DURING THIS HOSPITALIZATION: General Surgery, Dr. Ames and Cardiology, Dr. Palmer. DISCHARGE MEDICATIONS: She is being started on cefdinir 300 mg 2 times a day for 1 week. Otherwise, no change was made to her pre-admission home medications as dictated by Dr. Sierra in her history and physical note, dated 11/05/2019. HOSPITAL COURSE: Ms. Chacon is a pleasant 64-year-old lady, who was admitted to [facility] on 11/05/2019, for abdominal pain and fever. She has a history of abdominal wall seroma. Initially, it was felt that this could be an infection of the abdominal wall seroma. She was also found to have urinary tract infection. She was seen by General Surgery and Cardiology Services. Initial plan was to drain the fluid collection. Cardiology Service indicated that the patient was high risk for surgery, but she may proceed because there is nothing to be done that can reduce her risk. After discussion with Radiology Service, General Surgery Service decided not to proceed with drainage site. It appeared to be a contained walled-off hematoma, that point was not an abscess and because of high risks to do surgery, they wanted to treat urinary tract infection and not do any kind of surgical treatment on the contained hematoma. The patient also had diarrhea at the time of admission. Stool C diff test was negative. Campylobacter antigen assay, Shiga toxin test, and stool culture for E coli O157 are all negative. The patient is being discharged home in a stable condition. POST ACUTE CARE FOLLOWUP: With primary care provider in 3 days. DIET: Heart healthy and diabetic. ACTIVITY: As tolerated. Many thanks for allowing me to participate in your patient's care. Please feel free to contact me with any questions or concerns. LABORATORY DATA: On the day of discharge, she has white count of 6700, hemoglobin 10, platelet count 179,000. Sodium 138, potassium 3.4, which is being replaced and creatinine 1.41. DISCHARGE DESTINATION: Home. TIME SPENT: Total amount of time spent coordinating this discharge: 32 minutes. Job ID: [id number]
--- NOTE | 2019-11-09 01:23 | DIS ---
DATE OF ADMISSION: 11/05/2019 DATE OF DISCHARGE: 11/08/2019 PRIMARY CARE PROVIDER: Dr. Raj Hinton. DISCHARGE DIAGNOSES: 1. Urinary tract infection. 2. Salmonella diarrhea. 3. Urinary tract infection with beta-hemolytic Streptococcus. 4. Acute kidney injury. 5. Hyponatremia. CONDITION OF PATIENT ON THE DAY OF DISCHARGE: Stable. I assessed Ms. Chacon on the day of discharge. She denies any chest pain or shortness of breath. She reports diarrhea has improved significantly. Vital signs are stable. S1 and S2 are heard, regular. Lungs are clear to auscultation bilaterally. DISCHARGE MEDICATIONS: 1. Lipitor 40 mg at bedtime. 2. Citalopram 40 mg daily. 3. Furosemide 20 mg daily. 4. Gabapentin 300 mg at bedtime. 5. Isosorbide mononitrate 60 mg daily. 6. Lisinopril 20 mg at bedtime. 7. Toprol-XL 12.5 mg daily. 8. Nitroglycerin p.r.n. 9. Aspirin 81 mg daily. 10. Cefdinir 300 mg 2 times a day for 1 week. 11. Tramadol 50 mg every 6 hours as needed, the patient to be dispensed 15 doses. 12. Metformin 1000 mg 2 times a day. CONSULTATIONS DURING THIS HOSPITALIZATION: 1. Cardiology, Dr. Palmer. 2. General Surgery, Dr. Ames. POST-ACUTE CARE FOLLOWUP: With primary care provider in 3 days. HOSPITAL COURSE: Ms. Chacon is a pleasant 64-year-old lady, who was admitted to [facility] on 11/05/2019, for abdominal pain. Initially, there was concern that she may have an infected abdominal wall seroma. She was seen by General Surgery and Cardiology Service. She was deemed high risk for surgery, but if she needed the surgery anyway, Cardiology Service recommended that she can proceed with surgery knowing that she is high risk. She was also found to have urinary tract infection. General Surgery Service reviewed her CAT scan with radiologist and it was felt that it was not an infected abscess in the abdominal wall. At the time of admission, she also had diarrhea. Clostridium difficile test was negative. Preliminary stool culture grew Salmonella. Her diarrhea resolved after initial days of treatment with Zosyn and vancomycin. Urine culture grew beta-hemolytic Streptococcus. She is being discharged home on cefdinir. She is advised to follow up with primary care provider for final stool culture. Many thanks for allowing me to participate in your patient's care. Please feel free to contact me with any questions or concerns. DISCHARGE DESTINATION: Home. TIME SPENT: Total amount of time spent coordinating this discharge: 32 minutes. LABORATORY DATA: On the day of discharge, she has sodium 140, potassium 3.6, creatinine 0.88. White count 7900, hemoglobin 9.4, and platelet count 181,000. Job ID: [id number]
== END 2019-11-08 13:47 | disposition home or self-care (01) | DRG 690 ==
LOC: ERS 21:08 → ERHOLD 11-05 03:26 → T4-A 11-05 09:00
PROVIDERS: ADMIT Internal Medicine; ATTEND Internal Medicine
DX: N39.0 Urinary tract infection, site not specified (principal); A02.0 Salmonella enteritis; N17.9 Acute kidney failure, unspecified; E87.1 Hypo-osmolality and hyponatremia; E11.9 Type 2 diabetes mellitus without complications; I25.118 Atherosclerotic heart disease of native coronary artery with other forms of angina pectoris; E87.6 Hypokalemia; Y83.8 Other surgical procedures as the cause of abnormal reaction of the patient, or of later complication, without mention of misadventure at the time of the procedure; Z86.73 Personal history of transient ischemic attack (TIA), and cerebral infarction without residual deficits; Z95.1 Presence of aortocoronary bypass graft; Z98.51 Tubal ligation status; Z90.49 Acquired absence of other specified parts of digestive tract; Z88.1 Allergy status to other antibiotic agents; Z87.891 Personal history of nicotine dependence
CPT/HCPCS: 36415; 36416; 74177; 80048; 80053; 80202; 81003; 81015; 83605; 83690; 84484; 85025; 87045; 87046; 87077; 87086; 87186; 87324; 87427; 87449; 87804; 93005; 96361; 96365; 96375; J2270; J2405; J2543; J3370; J3490; Q0162; Q9967

== ENCOUNTER 2019-12-22 16:02 | Emergency (ER) | payer MEDICARE ==
[~2019-12-22 16:02] MED LIST changes: -Iopamidol 370 76% 100 ML VIAL ONE; +Iopamidol-370 76% 500 ML 1 ML ONE
[2019-12-22 16:26] LABS: #Eosinphils 0.1 thou/uL (0.0-0.7); #Lymphocytes 2.2 thou/uL (1.20-3.40); #Monocytes 0.6 thou/uL (0.11-0.59); #Neutrophils 6.3 thou/uL (1.40-6.50); %Basophils 0.4 % (0.0-1.0); %Eosinophils 1.1 % (0.0-10.0); %Lymphocytes 23.6 % (21.0-51.0); %Monocytes 6.9 % (0.0-10.0); Hemoglobin 11.2 g/dL (12.0-16.0); Mean Corpuscular HGB CONC 33.5 g/dL (32.0-36.0); Mean Corpuscular Hemoglobin 27.5 pg (27.0-31.0); Mean Corpuscular Volume 82.2 fL (78.0-98.0); Mean Platelet Volume 8.2 fL (7.4-10.4); Platelet Count 186 thou/uL (130-400); RBC Distribution Width 14.8 % (11.5-14.5); Red Blood Cell (RBC) Count 4.07 mill/uL (4.20-5.40); White Blood Cell (WBC) Count 9.3 thou/uL (4.8-10.8)
[2019-12-22 16:51] LABS: ALT (SGPT) 19 U/L (8-55); AST (SGOT) 49 U/L (5-34); Alkaline Phosphatase 114 U/L (40-110); Anion Gap 13 mmol/L (10-20); BUN (Urea Nitrogen) 16 mg/dL (9.8-20.1); Bilirubin, Total 0.3 mg/dL (0.2-1.2); Calc. Creatinine Clearance 0 mL/min (70-130); Carbon Dioxide 21 mmol/L (23-31); Chloride 105 mmol/L (98-107); Estimated GFR-MDRD 48; Globulin 3.7 g/dL (2.4-3.5); Glucose 228 mg/dL (80-115); Lipase 49 U/L (8-78); Potassium 3.9 mmol/L (3.5-5.1); Protein, Total 7.7 g/dL (6.0-8.3); Sodium 135 mmol/L (136-145)
[2019-12-22] MEDS ORDERED: Ondansetron PF 4 MG/2 ML Vial ONE (17:30)
[2019-12-22 17:54] LABS: Bilirubin Negative (Negative); Blood, Urine Negative (Negative); Clarity Turbid (Clear); Glucose, Urine (Dipstick) Normal (Negative); Leukocyte 500 Leu/uL (Negative); Nitrite Negative (Negative); Protein, Urine (Dipstick) 30 mg/dL (Neg-Trace); Squamous Epithelial 0-3 HPF (0-3); Urobilinogen Normal mg/dL (Less than 2); WBC/HPF 21-50 HPF (0-3)
[2019-12-22 18:00] LABS: Bacteria/HPF 3+ HPF (None Seen)
[2019-12-22 18:01] LABS: Transitional Epithelial 0-3 HPF (None Seen)
--- NOTE | 2019-12-22 18:43 | CT ---
CT ABDOMEN AND PELVIS WITH IV CONTRAST: HISTORY: Nausea and diarrhea with diffuse abdominal pain. COMPARISON: 11/05/2019 FINDINGS: The lung bases are clear. Vascular calcifications are seen in the coronary arteries and the heart is mildly enlarged. Vascular calcifications are seen in the abdominal aorta and involving the iliac arteries. Post cholecystectomy changes are again seen. The liver, spleen, pancreas, right adrenal gland and bilateral kidneys demonstrate a normal CT appear ance. Again noted is the nodule seen involving the left adrenal gland and this was also seen on a CTA chest from 11/24/2018 and is unchanged in size or appearance. The urinary bladder is decompressed. The uterus and adnexal structures have a normal appearance for t he patient's age. Loops of small bowel are normal in caliber. The appendix is visualized and is normal in caliber. There is an enhancing nodule seen in the anterolateral left upper quadrant, adjacent to the splenic f lexure, but this has a similar density to the adjacent spleen and probably represents a splenule. There is colonic diverticulosis. Midline scarring is again seen in an infraumbilical location. There is a large hypodense collection in the subcutaneous soft tissue left lower quadrant abdominal w all, which measures 8.5 cm x 7.2 cm with a previous measurement of 8.9 cm x 7 cm. This has not signif icantly changed in size compared to the prior exam. No gas is seen within this structure. There are a djacent mild inflammatory changes, which were also seen on the prior exam. This could be related to r esidual hematoma in this region but there was evidence of multiple abdominal wall abscess collections on the study of 09/12/2019 and an infectious process related to an abscess collection cannot be enti rely excluded. No additional subcutaneous fluid collection is identified on this exam. IMPRESSION: 1. Persistent, large, hypodense fluid collection seen within the subcutaneous soft tissues, left ante rolateral pelvis, not significantly changed in size or appearance. This could potentially represent r esidual hematoma, but given that multiple prior abdominal abscess collections were seen in the anteri or abdominal wall on the prior study of 09/12/2019, this could be related to residual abscess collect ion. No gas is seen within this structure. [id number] this is stable in appearance and size. 2. No acute intraabdominal findings are seen. There has been resolution of the bowel wall thickening involving the colon. POS: [facility]
[2019-12-22] MEDS ORDERED: cefTRIAXone\\ROCEPHIN 1 GM VIAL ONE (20:01)
== END 2019-12-22 20:30 | disposition home or self-care (01) ==
LOC: ERS 16:02
DX: N39.0 Urinary tract infection, site not specified (principal); H10.9 Unspecified conjunctivitis; H00.016 Hordeolum externum left eye, unspecified eyelid; E11.9 Type 2 diabetes mellitus without complications; I11.0 Hypertensive heart disease with heart failure; I50.9 Heart failure, unspecified; F32.9 Major depressive disorder, single episode, unspecified; E78.5 Hyperlipidemia, unspecified; Z86.73 Personal history of transient ischemic attack (TIA), and cerebral infarction without residual deficits; Z95.5 Presence of coronary angioplasty implant and graft; Z87.891 Personal history of nicotine dependence
CPT/HCPCS: 36415; 74177; 80053; 81003; 81015; 83690; 85025; 87077; 87086; 87186; 96361; 96365; 96375; J0696; J2405; Q9967

== ENCOUNTER 2020-01-07 17:25 | Inpatient (IN) | payer MEDICARE ==
[2020-01-07] MEDS ORDERED: Morphine 4 MG/ML VIAL ONE (17:47)
[2020-01-07] MEDS ORDERED: Ondansetron PF 4 MG/2 ML Vial ONE ×2 (17:47→20:28)
[2020-01-07 18:10] LABS: #Eosinphils 0.1 thou/uL (0.0-0.7); #Lymphocytes 1.6 thou/uL (1.20-3.40); #Monocytes 0.5 thou/uL (0.11-0.59); #Neutrophils 6.9 thou/uL (1.40-6.50); %Basophils 0.3 % (0.0-1.0); %Eosinophils 1.5 % (0.0-10.0); %Lymphocytes 17.5 % (21.0-51.0); %Monocytes 5.3 % (0.0-10.0); %Neutrophils 75.4 % (42.0-75.0); Hemoglobin 11.7 g/dL (12.0-16.0); Mean Corpuscular HGB CONC 33.1 g/dL (32.0-36.0); Mean Corpuscular Hemoglobin 27.2 pg (27.0-31.0); Mean Corpuscular Volume 82.1 fL (78.0-98.0); Mean Platelet Volume 8.4 fL (7.4-10.4); Platelet Count 188 thou/uL (130-400); RBC Distribution Width 14.5 % (11.5-14.5); Red Blood Cell (RBC) Count 4.31 mill/uL (4.20-5.40); White Blood Cell (WBC) Count 9.2 thou/uL (4.8-10.8)
--- NOTE | 2020-01-07 18:18 | RAD ---
Chest AP view INDICATION: Chest pain and mid abdominal pain COMPARISON: September 04, 2019 FINDINGS: Lungs:The lungs are clear Cardiac silhouette:Stable post-CABG change and moderate cardiomegaly Pulmonary vasculature:Normal Pleural spaces:No pleural effusion or pneumothorax is demonstrated. Upper abdomen:No abnormality seen. Osseous structures: No acute osseous abnormality. Additional findings:None. IMPRESSION: Stable post-CABG change and moderate cardiomegaly
[2020-01-07 18:33] LABS: ALT (SGPT) 9 U/L (8-55); AST (SGOT) 15 U/L (5-34); Albumin 4.6 g/dL (3.4-4.8); Alkaline Phosphatase 110 U/L (40-110); Anion Gap 16 mmol/L (10-20); BUN (Urea Nitrogen) 16 mg/dL (9.8-20.1); Bilirubin, Total 0.4 mg/dL (0.2-1.2); Calc. Creatinine Clearance 0 mL/min (70-130); Calcium 10.2 mg/dL (7.8-10.44); Carbon Dioxide 24 mmol/L (23-31); Chloride 102 mmol/L (98-107); Estimated GFR-MDRD 61; Globulin 4.5 g/dL (2.4-3.5); Glucose 137 mg/dL (80-115); Lipase 46 U/L (8-78); Potassium 4.1 mmol/L (3.5-5.1); Protein, Total 9.1 g/dL (6.0-8.3); Sodium 138 mmol/L (136-145)
--- NOTE | 2020-01-07 18:59 | CT ---
CT OF THE ABDOMEN AND PELVIS WITH IV CONTRAST INDICATION: 64-year-old female with abdominal pain COMPARISON: CT the abdomen and pelvis with contrast dated December 22, 2019 FINDINGS: ABDOMEN: Lung bases: Clear Liver: No focal lesion. Gallbladder: Surgically absent. Mild intrahepatic and extra hepatic biliary ductal dilatation is sta ble, likely related to postcholecystectomy state. Pancreas: Normal. Adrenal glands: Stable left adrenal prominence. Right adrenal gland is normal-appearing Spleen: Normal. Kidneys and ureters: Stable bilateral renal cysts. No hydronephrosis Vasculature: There are moderate vascular calcifications seen involving the visualized vasculature. Lymph nodes:No lymphadenopathy. Free fluid in abdomen:No free fluid is evident. PELVIS: Small and large bowel: There is enlargement of loops of jejunum within the left upper quadrant the ab domen with a transition zone seen within the lower midline abdomen on image 66 of series 2. Colon demonstrates scattered diverticula and a mild amount retained stool. Appendix:Normal Bladder: Normal. Rectal and perirectal soft tissues:Normal. Reproductive structures: Normal. Free fluid in pelvis: No free fluid is evident. Lymphadenopathy pelvis: No lymphadenopathy is evident. Osseous structures: No acute osseous abnormality. No destructive osteolytic or osteoblastic lesion i s identified. There is scattered degenerative and osteoarthritic changes. Soft tissues:The 8.2 x 7.3 cm complex fluid collection within the left lower quadrant anterior abdomi nal wall is stable. IMPRESSION: 1. Interval development of [id number] partial small bowel obstruction. Transition zone is seen within the lower mid abdomen. 2. Stable left lower quadrant anterior abdominal subcutaneous fluid collection.
[2020-01-07] MEDS ORDERED: Fentanyl 100 MCG/2 ML VIAL ONE (19:15)
[2020-01-07 19:43] LABS: Bacteria/HPF None Seen HPF (None Seen); Bilirubin Negative (Negative); Blood, Urine Trace (Negative); Clarity Clear (Clear); Glucose, Urine (Dipstick) 30 mg/dL (Negative); Leukocyte 250 Leu/uL (Negative); Nitrite Negative (Negative); Protein, Urine (Dipstick) 20 mg/dL (Neg-Trace); Squamous Epithelial 0-3 HPF (0-3); Urobilinogen Normal mg/dL (Less than 2)
[2020-01-07] MEDS ORDERED: Ondansetron ODT 4 MG TAB SL PRN (21:41)
[2020-01-07] MEDS ORDERED: Fentanyl 100 MCG/2 ML VIAL SLOW IVP PRN (21:41)
[2020-01-07] MEDS ORDERED: Sodium Chloride 0.9% 1,000 ML IV SCH (21:41)
[2020-01-07 21:51] LABS: Troponin I Less than 0.010 ng/mL (< 0.028)
[2020-01-07] MEDS ORDERED: Dextrose 50% Abboject 50 ML SYRINGE SLOW IVP PRN (22:13)
[2020-01-07] MEDS ORDERED: Dextrose 5% in Water 1,000 ML IV PRN (22:13)
--- NOTE | 2020-01-07 22:17 | PDOC.HHP ---
Hospitalist HPI - History of Present Illness abdominal pain History of Present Illness: THis is a 64 year old female with a past medical history of type II diabetes, CAD s/p CABG, small bowel obstruction in the past, CHF who presented to the ER with abdominal pain. The patient states that her abdominal pain started after she ate a healthy grain cereal for breakfast this morning. It was in her lower quadrants, started as an intermittent crampy pain and then progressively got worst to a more diffuse constant pain. She rates the pain as severe. The patient states she proceeded to have persistent dry heaving until she came to the ER and got medication. She has not vomited. She had a bowel movement this morning that was non-bloody. She denies any fevers or chills. She has not passed gas since yesterday. She has not eaten since this am. ED Course: The patient presented initially with a blood pressure of 211/83. Rest of her vitals were normal. EKG showed no new changes. Chest X Ray showed no acute disease. CT abdomen showed mild to moderate partial small bowel obstruction and stable left lower quadrant anterior abdominal SC collection. She was given 1 L IV fluids, 4 mg IV morphine, 8 mg IV zofran, fentanyl 25 mcg IV. Repeat blood pressure improved to 152/82. The patient reports no relief in her nausea with zofran but improvement with phenergan. She states morphine has alleviated her pain. Hospitalist ROS - Review of Systems Constitutional: denies: fever, chills Eyes: denies: pain, vision change ENT: denies: ear discharge Respiratory: denies: cough, dry, shortness of breath Cardiovascular: denies: chest pain, palpitations, orthopnea, paroxysmal noc. dyspnea Gastrointestinal: reports: nausea, abdominal pain. denies: vomiting, diarrhea, constipation Genitourinary: denies: dysuria, frequency, incontinence Musculoskeletal: denies: neck pain, shoulder pain Skin: denies: lesions, darci Neurological: denies: weakness, numbness, incoordination - Medication Medications: Citalopram 40 mg daily Atorvastatin 40 mg daily Lasix prn Metformin 1000 mg bid Metoprolol 12.5 mg daily Imdur 50 mg daily Hospitalist History - Past Medical History Cardiac: reports: CAD (s/p bypass), CHF, HTN Endocrine: reports: Diabetes - Exam General Appearance: NAD, awake alert General - other findings: obese Eye: PERRL, anicteric sclera ENT: normocephalic atraumatic, no oropharyngeal lesions Neck: no JVD Heart: RRR, no murmur, no gallops, no rubs Respiratory: CTAB, no wheezes, no rales, no ronchi Gastrointestinal: soft Gastrointestinal - other findings: hypoactive bowel sounds. LUQ and LLQ tenderness. Extremities: no cyanosis, no clubbing, no edema Skin: normal turgor, no lesions, no rashes Neurological: cranial nerve grossly intact, normal sensation to touch, no focal deficits, no new deficit Hospitalist Results - Labs Result Diagrams: 01/07/20 18:06 01/07/20 18:06 Lab results: WBC 9.2 thou/uL (4.8-10.8) 01/07/20 18:06 Hgb 11.7 g/dL (12.0-16.0) L 01/07/20 18:06 Hct 35.4 % (36.0-47.0) L 01/07/20 18:06 MCV 82.1 fL (78.0-98.0) 01/07/20 18:06 Plt Count 188 thou/uL (130-400) 01/07/20 18:06 Neutrophils % 75.4 % (42.0-75.0) H 01/07/20 18:06 Sodium 138 mmol/L (136-145) 01/07/20 18:06 Potassium 4.1 mmol/L (3.5-5.1) 01/07/20 18:06 Chloride 102 mmol/L (98-107) 01/07/20 18:06 Carbon Dioxide 24 mmol/L (23-31) 01/07/20 18:06 BUN 16 mg/dL (9.8-20.1) 01/07/20 18:06 Creatinine 0.92 mg/dL (0.6-1.1) 01/07/20 18:06 Glucose 137 mg/dL (80-115) H 01/07/20 18:06 Lactic Acid 1.2 mmol/L (0.5-2.2) 01/07/20 18:06 Calcium 10.2 mg/dL (7.8-10.44) 01/07/20 18:06 Total Bilirubin 0.4 mg/dL (0.2-1.2) 01/07/20 18:06 AST 15 U/L (5-34) 01/07/20 18:06 ALT 9 U/L (8-55) 01/07/20 18:06 Alkaline Phosphatase 110 U/L (40-110) 01/07/20 18:06 Troponin I Less than 0.010 ng/mL (< 0.028) 01/07/20 21:16 Serum Total Protein 9.1 g/dL (6.0-8.3) H 01/07/20 18:06 Albumin 4.6 g/dL (3.4-4.8) 01/07/20 18:06 Lipase 46 U/L (8-78) 01/07/20 18:06 Urine Ketones Negative mg/dL (Negative) 01/07/20 19:31 Urine Blood Trace (Negative) A 01/07/20 19:31 Urine Nitrite Negative (Negative) 01/07/20 19:31 Ur Leukocyte Esterase 250 Wilfredo/uL (Negative) A 01/07/20 19:31 Urine RBC 4-6 HPF (0-3) A 01/07/20 19:31 Urine WBC 4-6 HPF (0-3) A 01/07/20 19:31 Ur Squamous Epith Cells 0-3 HPF (0-3) 01/07/20 19:31 Urine Bacteria None Seen HPF (None Seen) 01/07/20 19:31 Hospitalist H&P A/P - Plan Plan: This is a 64 year old male with a past medical history of CHF, hypertension, diabetes, CAD s/p CABG, stroke in the past who presented to the ER with diffuse abdominal pain found to have partial small bowel obstruction Mild to moderate small partial small bowel obstruction - CT abdomen showed mild to moderate partial small bowel obstruction and stable left lower quadrant anterior abdominal SC collection - will keep NPO, start IV fluids - can advance diet as tolerated if patient needs gas - surgery consult in am #CAD s/p CABG #CHF - hold lasix, imdur, metoprolol due to decreased po intake - hold statin for now, resume tomorrow - patient states she is not on aspirin due to anemia Anemia - Hb 11 - had low iron saturation in 10/2018. Will check ferritin and repeat iron sat - check B12/folate #Type II diabetes - insulin sliding scale Depression - hold celexa for now DVT prophylaxis: SCDS Code status: full code
[2020-01-07 22:24] VITALS: BMI 32.1
[2020-01-07] MEDS: Morphine 2 MG/ML SYRINGE SLOW IVP PRN (22:28)
[2020-01-07] MEDS: Dextrose 5 %-0.45 % NaCl 1,000 ML IV SCH (22:28)
[2020-01-07] MEDS: HumaLOG 300 UNITS/3 ML VIAL SC PRN (22:38)
[2020-01-07] MEDS ORDERED: Promethazine HCl 12.5 MG in Sodium Chloride 0.9% 50 ML IVPB PRN (23:11)
--- NOTE | 2020-01-07 23:36 | PDOC.FMACP ---
Advance Care Planning - Note Participants: patient Summary: Advanced Care Planning was discussed. The diagnosis, prognosis and goals of care were discussed. Appropriate forms and documentation to accomplish the goals of care were discussed. All questions were answered. The Palliative Care Team will be engaged to assist with completion of any outstanding forms that are needed. Patient wishes to be full code. If anything happens to her, her daughter Aaliyah should be called
[2020-01-08 01:24] LABS: Troponin I Less than 0.010 ng/mL (< 0.028)
[2020-01-08] MEDS: Ondansetron PF 4 MG/2 ML Vial IVP PRN ×2 (02:39→09:01)
[2020-01-08] MEDS ORDERED: Prochlorperazine Edisylate 10 MG in Sodium Chloride 0.9% 50 ML IVPB PRN (04:16)
[2020-01-08] MEDS: Morphine 2 MG/ML SYRINGE SLOW IVP PRN ×3 (05:13→22:05)
[2020-01-08] MEDS: HumaLOG 300 UNITS/3 ML VIAL SC PRN ×2 (05:19→20:26)
[2020-01-08 06:08] LABS: Hemoglobin 11.7 g/dL (12.0-16.0); Mean Corpuscular HGB CONC 34.3 g/dL (32.0-36.0); Mean Corpuscular Hemoglobin 27.5 pg (27.0-31.0); Mean Corpuscular Volume 80.1 fL (78.0-98.0); Mean Platelet Volume 8.7 fL (7.4-10.4); Platelet Count 180 thou/uL (130-400); RBC Distribution Width 14.5 % (11.5-14.5); Red Blood Cell (RBC) Count 4.24 mill/uL (4.20-5.40); White Blood Cell (WBC) Count 9.4 thou/uL (4.8-10.8)
[2020-01-08 06:31] LABS: Anion Gap 15 mmol/L (10-20); BUN (Urea Nitrogen) 12 mg/dL (9.8-20.1); Calc. Creatinine Clearance 87 mL/min (70-130); Calcium 9.2 mg/dL (7.8-10.44); Carbon Dioxide 21 mmol/L (23-31); Chloride 102 mmol/L (98-107); Estimated GFR-MDRD 71; Glucose 216 mg/dL (80-115); Potassium 4.4 mmol/L (3.5-5.1); Sodium 134 mmol/L (136-145)
[2020-01-08 06:32] LABS: Iron 50 ug/dL (50-170); Iron Binding Capacity, Total 375 mcg/dL (265-497)
[2020-01-08 06:57] LABS: Ferritin 23.1 ng/mL (10-291)
--- NOTE | 2020-01-08 07:37 | RAD ---
Exam: One view abdomen HISTORY: Persistent vomiting COMPARISON: None FINDINGS: Nonspecific calcifications project over the left and right upper abdomen. Bowel gas pattern demonstrates prominent air-filled loop of small bowel, left hemiabdomen. No pneumoperitoneum on supine projection. Excreted contrast, and urinary bladder. No osseous abnormality. IMPRESSION: Air-filled loops of small bowel in the left hemiabdomen. Findings are similar to the prev ious CT. Correlate for a ileus/obstructive process. Continued surveillance is recommended. Gastrografin small bowel series may be beneficial.
[2020-01-08] MEDS: Citalopram 20 MG TAB PO SCH (07:50)
[2020-01-08] MEDS: Dextrose 5 %-0.45 % NaCl 1,000 ML IV SCH ×2 (11:43→23:56)
--- NOTE | 2020-01-08 12:02 | PDOC.HOSPP ---
- Subjective Encounter Date: 01/08/20 Encounter Time: 13:10 Subjective: Patient seen and examined. No new complaints. No overnight events - Objective Vital Signs & Weight: Vital Signs (12 hours) Temp Pulse Resp BP Pulse Ox 01/08/20 11:53 98.0 F 84 18 128/79 94 L 01/08/20 08:35 98.2 F 81 18 147/59 H 98 01/08/20 08:00 98 01/08/20 05:12 98.4 F 77 17 162/95 H 97 01/08/20 00:08 98.6 F 71 17 164/86 H 96 Weight Weight 176 lb I&O: 01/07/20 01/08/20 01/09/20 06:59 06:59 06:59 Intake Total 800 Output Total 400 Balance 400 Result Diagrams: 01/08/20 05:41 01/08/20 05:41 Additional Labs: Accuchecks 01/08/20 01/07/20 05:21 22:38 POC Glucose 249 H 231 H Radiology Reviewed by me: Yes Hospitalist ROS - Review of Systems ENT: denies: ear pain, ear discharge, nose pain, nose discharge, nose congestion , mouth pain, mouth swelling, throat pain, throat swelling, other Respiratory: denies: cough, dry, shortness of breath, hemoptysis, SOB with excertion, pleuritic pain, sputum, wheezing, other Cardiovascular: denies: chest pain, palpitations, orthopnea, paroxysmal noc. dyspnea, edema, light headedness, other Gastrointestinal: denies: nausea, vomiting, abdominal pain, diarrhea, constipation, melena, hematochezia, other Genitourinary: denies: dysuria, frequency, incontinence, hematuria, retention, other Musculoskeletal: denies: neck pain, shoulder pain, arm pain, back pain, hand pain, leg pain, foot pain, other - Medication Medications: Active Medications Generic Name Dose Route Start Last Admin Trade Name Freq PRN Reason Stop Dose Admin Citalopram Hydrobromide 40 mg 01/08/20 09:00 01/08/20 07:50 Celexa PO 40 mg DAILY KOBI Administration Dextrose/Sodium Chloride 1,000 mls @ 75 mls/hr 01/07/20 22:15 01/08/20 11:43 D5 1/2 Ns IV 1,000 mls .[id number] KOBI Administration Promethazine HCl 12.5 mg/ 50.5 mls @ 202 mls/hr 01/07/20 23:11 01/08/20 00:00 Sodium Chloride IVPB 50.5 mls Q6H PRN Administration Nausea Prochlorperazine Edisylate 10 52 mls @ 150 mls/hr 01/08/20 04:16 01/08/20 05: 13 mg/ Sodium Chloride IVPB 52 mls Q4H PRN Administration Nausea/Vomiting Insulin Human Lispro 0 units 01/07/20 22:13 01/08/20 05:19 Humalog SC 3 unit .MILD SLIDING SCALE PRN Administration Mild Correctional Scale Morphine Sulfate 2 mg 01/07/20 22:14 01/08/20 08:57 Morphine SLOW IVP 2 mg Q4H PRN Administration Moderate Pain (4-6) Sodium Chloride 10 ml 01/08/20 09:00 01/08/20 07:50 Flush - Normal Saline IVF Not Given Q12HR KOBI - Exam General Appearance: NAD, awake alert Eye: PERRL, anicteric sclera ENT: normocephalic atraumatic, no oropharyngeal lesions Neck: supple, symmetric, no JVD Heart: RRR, no murmur, no gallops, no rubs Respiratory: CTAB, no wheezes, no rales, no ronchi Gastrointestinal: soft, non-tender, non-distended, normal bowel sounds Extremities: no cyanosis, no clubbing, no edema Skin: normal turgor, no lesions Neurological: no focal deficits Musculoskeletal: normal tone, normal strength Psychiatric: normal affect, normal behavior Hosp A/P (1) Partial small bowel obstruction Status: Acute (2) Obesity (BMI 30.0-34.9) Code(s): E66.9 - OBESITY, UNSPECIFIED Status: Chronic (3) CAD (coronary artery disease) Code(s): I25.10 - ATHSCL HEART DISEASE OF [place] CORONARY ARTERY W/O ANG PCTRS Status: Chronic (4) HTN (hypertension) Code(s): I10 - ESSENTIAL (PRIMARY) HYPERTENSION Status: Chronic - Plan old records reviewed/req 01/08/20 today small bowel xray pt is NPO surgeon on case continue conservative treatment for now medication reviewed and continue supportive care and symptomatic treatment
--- NOTE | 2020-01-08 12:22 | CON ---
DATE OF CONSULTATION: 01/08/2020 REQUESTING PHYSICIAN: Gely Reid MD HISTORY OF PRESENT ILLNESS: This is a 64-year-old woman with history of multiple abdominal surgeries, who presented with insidious onset nonspecific abdominal pain, described as sharp and occasionally crampy, associated with one bout of nonbilious emesis. Pain started at about 5/10, but intensified to 8 to 9/10 prior to presentation. Since admission, she had, had 3 bouts of dark-colored emesis, which were foul smelling. Last bowel movement and flatus was yesterday. She denies any hematochezia or melena. She denies any unexplained weight loss. She denies any fevers or chills. PAST MEDICAL HISTORY: Significant for coronary arterial disease, chronic congestive heart failure, type 2 diabetes mellitus, and essential hypertension. PAST SURGICAL HISTORY: Significant for coronary arterial bypass graft, Ross's procedure for colonic obstruction secondary to chronic diverticulitis. Additional surgeries included colostomy takedown, carotid endarterectomy, bilateral tubal ligation many years ago, and multiple colonoscopies. SOCIAL HISTORY: She denies any cigarette smoking, ethanol, or illicit drug abuse. She is and lives independently. FAMILY HISTORY: Noncontributory for this patient's age. PRE-HOSPITAL MEDICATIONS: Include; 1. Toprol-XL 12.5 mg p.o. daily. 2. Atorvastatin 40 mg p.o. at bedtime. 3. Isosorbide mononitrate 60 mg p.o. daily. 4. Lisinopril 20 mg p.o. daily. 5. Metformin 1000 mg p.o. b.i.d. 6. Citalopram 40 mg p.o. daily. ALLERGIES: TO LEVOFLOXACIN. REVIEW OF SYSTEMS: Ten-point review of systems essentially unremarkable except as stated in Past Medical History and Chief Complaint. PHYSICAL EXAMINATION: GENERAL: This reveals a 64-year-old normally developed woman, who is otherwise coherent and interactive and appears stated age. The patient is alert and oriented x3, appears to be in no acute distress at the time of my evaluation. VITAL SIGNS: Include blood pressure 147/59, pulse 81, respiratory rate is 18, temperature 98.2 degrees Fahrenheit, and oxygen saturation 98% on room air. HEART: Reveals regular rate and rhythm. LUNGS: Clear to auscultation bilaterally. ABDOMEN: Soft, moderately obese. She has no significant tenderness to palpation. Liver and spleen are nonpalpable below costal margin. NEUROLOGIC: Reveals no focal deficits present. LABORATORY FINDINGS: Today include a CBC with stable white blood cell count of 9400, hemoglobin and hematocrit of 11.7 and 34.0, and platelet count is 180,000. Metabolic profile; sodium 134, potassium is 4.4, chloride is 102, bicarb is 21, BUN 12, creatinine is 0.81, and glucose 216. I have personally reviewed the CT scan of the abdomen and pelvis, which was obtained with IV, but no oral contrast and this demonstrates multiple distended loops of small bowel with apparent, that is, gas in the sigmoid colon and rectum. IMPRESSION: Acute partial small bowel obstruction versus gastroenteritis. PLAN: We will obtain a small bowel follow-through to better define the presence of this obstruction. There is no acute surgical indication for this patient at this time. We will continue conservative management and make further recommendations as necessary. Thank you again, Dr. Reid, for allowing me the opportunity to participate in the care of this patient. I have discussed the above with the patient, who indicates understanding of the information given. I have also answered her questions. Job ID: [id number]
--- NOTE | 2020-01-08 12:27 | RAD ---
EXAM: XR Small Bowel STANDARD PROVIDED CLINICAL HISTORY: Persistent vomiting and findings on CT examination on 01/07/2020 suggesting partial small bowel obstru ction. COMPARISON: CT abdomen and pelvis on 01/07/2020 FINDINGS: Gum Remover image demonstrates surgical clips overlying left lower chest and upper abdomen. Nasogastric tub e is noted in place with tip overlying the fundus of the stomach. Vascular calcifications are seen. Small bowel study demonstrates dilated loops of small bowel throughout the abdomen with prominent inv olving the jejunum. The approximate transit time of contrast seen throughout the small bowel is 2 hours with contrast seen in the ascending colon and in the hepatic flexure on the 2 hour image. IMPRESSION: Dilated loops of small bowel predominantly involving loops of jejunum with approximate transit time o f contrast into the colon of 2 hours. Findings are suggestive of low-grade partial small bowel obstruction. Exact transition point is difficult to visualize on this exam.
[2020-01-08] MEDS ORDERED: MD-Gastroview 120 ML BOT ONE (16:20)
[2020-01-08] MEDS ORDERED: Prevnar 13-Val Conj/PF 0.5 ML SYRINGE IM ONE (21:00)
--- NOTE | 2020-01-08 22:47 | PRG ---
DATE OF SERVICE: 01/08/2020 SUBJECTIVE: The patient was seen this evening during rounds. She was sitting up in bed with no signs of acute distress. She reported that her nausea and vomiting had subsided, and her abdominal pain had much improved. She had been since given a clear liquid diet this evening, for which, she tolerated. She reports passing flatus and having watery bowel movements this evening. She has been walking in her room, but has not ambulated outside in the hallway yet. OBJECTIVE: VITAL SIGNS: Temperature 98.4, pulse 84, respirations 18, oxygen saturation 98% on room air, and blood pressure 136/73. GENERAL: Well-appearing elderly female, sitting up in bed with no signs of acute distress. PULMONARY: Equal chest rise and fall. Clear breath sounds bilaterally. No signs of acute respiratory distress. CARDIAC: Regular rate and rhythm. GI: Abdomen is soft, mildly tender to palpation, nondistended. EXTREMITIES: No significant swelling noted. Gross motor and sensation intact. ASSESSMENT: 1. Partial small-bowel obstruction versus gastroenteritis. 2. History of coronary artery disease, congestive heart failure, type 2 diabetes, and hypertension. 3. Continue current clear liquid diet. Continue to encourage the patient to ambulate as much as possible and sit up in the chair. Pain control per primary team. Trauma team to re-evaluate the patient in the morning and likely advance the diet if she continues to improve. Job ID: [id number]
[2020-01-09] MEDS: Dextrose 5 %-0.45 % NaCl 1,000 ML IV SCH (02:56)
[2020-01-09] MEDS: Morphine 2 MG/ML SYRINGE SLOW IVP PRN ×2 (02:56→22:15)
[2020-01-09] MEDS: Citalopram 20 MG TAB PO SCH (07:44)
[2020-01-09] MEDS ORDERED: Zolpidem Tartrate 5 MG TAB PO PRN (08:12)
[2020-01-09] MEDS ORDERED: Bisacodyl 10 MG SUPP PR PRN (08:12)
[2020-01-09] MEDS ORDERED: Senokot S 8.6-50 MG TAB PO PRN (08:12)
[2020-01-09] MEDS ORDERED: Artificial Tears 18 DROP/0.9 ML EA EYE PRN (08:12)
[2020-01-09] MEDS ORDERED: Cepastat Lozenges 1 LOZ PO PRN (08:12)
[2020-01-09] MEDS ORDERED: hydrALAZINE 20 MG/ML VIAL SLOW IVP PRN (08:12)
[2020-01-09] MEDS ORDERED: Ondansetron PF 4 MG/2 ML Vial IVP PRN (08:12)
[2020-01-09] MEDS ORDERED: Loratadine 10 MG TAB PO PRN (08:12)
[2020-01-09] MEDS ORDERED: Loperamide HCl 2 MG CAP PO PRN (08:12)
[2020-01-09] MEDS ORDERED: Diabetic Tussin 200 MG/10 ML UDCUP PO PRN (08:12)
[2020-01-09] MEDS ORDERED: Sodium Chloride 0.65% Nasal 44 ML BOT EA NARE PRN (08:12)
[2020-01-09] MEDS ORDERED: Ondansetron ODT 4 MG TAB SL PRN (08:12)
[2020-01-09] MEDS: metFORMIN 500 MG TAB PO SCH ×2 (08:59→20:26)
[2020-01-09] MEDS ORDERED: Non-Formulary Item 1 EACH (Metformin Hcl [Metformin Hcl] 1,000 MG) PO SCH (09:00)
--- NOTE | 2020-01-09 11:14 | PDOC.GSPN ---
Surgery Progress Note: Subj - Subjective Narrative: Patient is hospital day #3 for a partial small bowel obstruction. She did well over night and NG tube was removed. Patient reports multiple watery bowel movements the last being immediately prior to interviewing her this morning, and improved abdominal pain. Pain is minimal with movement and palpation in RLQ and LLQ. Reports ambulating frequently in her room, however not in the hallway. Denies fever, chills, n/v, uncontrolled pain. Surgery Progress Note: Obj - Vital signs Vital signs: Vital Signs - Most Recent Temp Pulse Resp BP Pulse Ox 98.1 F 78 16 125/54 L 95 01/09/20 07:40 01/09/20 07:40 01/09/20 07:40 01/09/20 07:40 01/09/20 08:00 - Physical Exam General: no distress Cardiovascular: regular rate and rhythm Respiratory: clear to auscultation, normal expansion, normal respiratory effort , breath sounds present Abdomen: soft, nondistended, positive bowel sounds, appropriately tender Psychiatric: memory intact, oriented to time, oriented to person, oriented to place, speech is normal Surgery Progress Note: Results - Labs Result Diagrams: 01/08/20 05:41 01/08/20 05:41 Lab results: Laboratory Results - last 24 hr 01/09/20 05:53 POC Glucose 149 H Surgery Progress Note: A/P - Plan Plan: ASSESSMENT: 1. Partial small bowel obstruction 2. Previous hx of CAD, CHF, DM II, and HTN PLAN: Will advance diet to regular diet today. Continue current PRN pain management. Encourage frequent ambulation in the halls, TID at minimum. Anticipate discharge tomorrow if patient is tolerating diet, pain continues to improve, and continues having bowel movements.
[2020-01-09] MEDS: HumaLOG 300 UNITS/3 ML VIAL SC PRN ×2 (11:35→20:28)
--- NOTE | 2020-01-09 13:22 | PDOC.HOSPP ---
- Subjective Encounter Date: 01/09/20 Encounter Time: 10:00 Subjective: Patient seen and examined. No new complaints. No overnight events - Objective Vital Signs & Weight: Vital Signs (12 hours) Temp Pulse Resp BP Pulse Ox 01/09/20 08:00 95 01/09/20 07:40 98.1 F 78 16 125/54 L 95 Weight Weight 176 lb I&O: 01/08/20 01/09/20 01/10/20 06:59 06:59 06:59 Intake Total 800 1560 360 Output Total 400 Balance 400 1560 360 Result Diagrams: 01/08/20 05:41 01/08/20 05:41 Additional Labs: Accuchecks 01/09/20 01/09/20 01/08/20 11:33 05:53 20:16 POC Glucose 168 H 149 H 231 H 01/08/20 17:50 POC Glucose 146 H Hospitalist ROS - Review of Systems Eyes: denies: pain, vision change, conjunctivae inflammation, eyelid inflammation, redness, other ENT: denies: ear pain, ear discharge, nose pain, nose discharge, nose congestion , mouth pain, mouth swelling, throat pain, throat swelling, other Respiratory: denies: cough, dry, shortness of breath, hemoptysis, SOB with excertion, pleuritic pain, sputum, wheezing, other Cardiovascular: denies: chest pain, palpitations, orthopnea, paroxysmal noc. dyspnea, edema, light headedness, other Gastrointestinal: denies: nausea, vomiting, abdominal pain, diarrhea, constipation, melena, hematochezia, other Genitourinary: denies: dysuria, frequency, incontinence, hematuria, retention, other Musculoskeletal: denies: neck pain, shoulder pain, arm pain, back pain, hand pain, leg pain, foot pain, other Skin: denies: rash, lesions, darci, bruising, other - Medication Medications: Active Medications Generic Name Dose Route Start Last Admin Trade Name Freq PRN Reason Stop Dose Admin Citalopram Hydrobromide 40 mg 01/08/20 09:00 01/09/20 07:44 Celexa PO 40 mg DAILY KOBI Administration Promethazine HCl 12.5 mg/ 50.5 mls @ 202 mls/hr 01/07/20 23:11 01/08/20 00:00 Sodium Chloride IVPB 50.5 mls Q6H PRN Administration Nausea Prochlorperazine Edisylate 10 52 mls @ 150 mls/hr 01/08/20 04:16 01/08/20 05: 13 mg/ Sodium Chloride IVPB 52 mls Q4H PRN Administration Nausea/Vomiting Insulin Human Lispro 0 units 01/07/20 22:13 01/09/20 11:35 Humalog SC 4 unit .MILD SLIDING SCALE PRN Administration Mild Correctional Scale Isosorbide Mononitrate 60 mg 01/09/20 09:00 01/09/20 09:00 Imdur PO 60 mg DAILY KOBI Administration Metformin HCl 1,000 mg 01/09/20 09:00 01/09/20 08:59 Glucophage PO 1,000 mg BID KOBI Administration Metoprolol Succinate 12.5 mg 01/09/20 09:00 01/09/20 09:00 Toprol Xl PO 12.5 mg DAILY KOBI Administration Morphine Sulfate 2 mg 01/07/20 22:14 01/09/20 02:56 Morphine SLOW IVP 2 mg Q4H PRN Administration Moderate Pain (4-6) Sodium Chloride 10 ml 01/08/20 09:00 01/09/20 07:47 Flush - Normal Saline IVF Not Given Q12HR KOBI - Exam General Appearance: NAD, awake alert Eye: PERRL, anicteric sclera ENT: normocephalic atraumatic, no oropharyngeal lesions Neck: supple, symmetric, no JVD, no thyromegaly Heart: RRR, no murmur, no gallops, no rubs Respiratory: CTAB, no wheezes, no rales, no ronchi Gastrointestinal: soft, non-tender, non-distended, normal bowel sounds Extremities: no cyanosis, no clubbing, no edema Skin: normal turgor, no lesions, no rashes Neurological: cranial nerve grossly intact, no focal deficits Musculoskeletal: normal tone, normal strength, no muscle wasting Psychiatric: normal affect, normal behavior Hosp A/P (1) Partial small bowel obstruction Status: Acute (2) Obesity (BMI 30.0-34.9) Code(s): E66.9 - OBESITY, UNSPECIFIED Status: Chronic (3) CAD (coronary artery disease) Code(s): I25.10 - ATHSCL HEART DISEASE OF [place] CORONARY ARTERY W/O ANG PCTRS Status: Chronic (4) HTN (hypertension) Code(s): I10 - ESSENTIAL (PRIMARY) HYPERTENSION Status: Chronic - Plan old records reviewed/req, plan discussed w/ family 01/08/20 today small bowel xray pt is NPO surgeon on case continue conservative treatment for now medication reviewed and continue supportive care and symptomatic treatment 01/09/20 advance diet today start PT/OT restart home meds expecting discharge tomorrow if tolerates diet
[2020-01-09] MEDS: Lisinopril 20 MG TAB PO SCH (20:25)
[2020-01-09] MEDS: Atorvastatin Calcium 40 MG TAB PO SCH (20:26)
--- NOTE | 2020-01-10 01:17 | PRG ---
DATE OF SERVICE: 01/09/2020 SUBJECTIVE: The patient was seen this evening, lying in bed on her right side, resting comfortably and asleep during evening rounds. Nursing reported no acute events. OBJECTIVE: VITAL SIGNS: Temperature 98.4, pulse 89, respirations 19, oxygen saturation 98% on room air, and blood pressure 138/74. GENERAL: Well-appearing elderly female, lying in bed, asleep with no signs of acute distress. PULMONARY: Equal chest rise and fall. No signs of acute respiratory distress. ASSESSMENT: 1. Partial small-bowel obstruction versus gastroenteritis, now resolved. 2. History of coronary artery disease, congestive heart failure, type 2 diabetes, and hypertension. PLAN: Continue current regular diet. Continue ambulating as much as possible. Comorbid condition management by primary team. The patient will likely be discharged home if she continues to tolerate her regular diet. Job ID: [id number]
[2020-01-10] MEDS: Morphine 2 MG/ML SYRINGE SLOW IVP PRN ×3 (03:00→22:23)
[2020-01-10] MEDS: Acetaminophen 325 MG TAB PO PRN ×2 (04:29→18:36)
[2020-01-10] MEDS ORDERED: Morphine 2 MG/ML SYRINGE SLOW IVP SCH (04:30)
--- NOTE | 2020-01-10 04:36 | PDOC.EVN ---
Event Note - Event Note Event Note: Notified patient had pain in her back, shoulders, neck, hips and legs. Eval'd patient. She denied CP or abdominal pain. She did have temp of 99.8 earlier. She said she took her temp herself and it was 101.8. She feels cold and is shaking a little. Heart is regular, no M. Lungs are clear. Abdomen benign. Extremities with no edema. Good radial pulses. Diminished DP, PD pulses ( suspect chronic given her CAD). EKG unchanged from admission. Suspect she is just febrile and having mild rigors causing the discomfort. Ordered additional dose of morphine. Will check UA, CXR and obtain blood cultures.
[2020-01-10] MEDS: HumaLOG 300 UNITS/3 ML VIAL SC PRN (05:21)
[2020-01-10 05:39] LABS: Bacteria/HPF 2+ HPF (None Seen); Bilirubin Negative (Negative); Blood, Urine Negative (Negative); Clarity Clear (Clear); Glucose, Urine (Dipstick) Normal (Negative); Leukocyte 500 Leu/uL (Negative); Nitrite 1+ (Negative); Protein, Urine (Dipstick) 30 mg/dL (Neg-Trace); RBC/HPF 0-3 HPF (0-3)
[2020-01-10] MEDS: cefTRIAXone\\ROCEPHIN 1 GM in Sodium Chloride 0.9% 100 ML IVPB SCH (08:25)
[2020-01-10] MEDS: metFORMIN 500 MG TAB PO SCH ×2 (08:26→20:12)
[2020-01-10] MEDS: Citalopram 20 MG TAB PO SCH (08:26)
--- NOTE | 2020-01-10 08:32 | RAD ---
PORTABLE CHEST: HISTORY: Respiratory distress. COMPARISON: 01/07/2020. FINDINGS: Heart size is enlarged. There are postop sternotomy changes. The lungs are clear of any infiltrativ e process. No signs of failure. IMPRESSION: Cardiomegaly. Stable exam. POS: TPC
--- NOTE | 2020-01-10 11:07 | PDOC.HOSPP ---
- Subjective Encounter Date: 01/10/20 Encounter Time: 09:10 Subjective: last night had fever, has cramps and low back pain, fever improved, tolerating diet - Objective Vital Signs & Weight: Vital Signs (12 hours) Temp Pulse Resp BP BP Pulse Ox 01/10/20 08:35 101/65 01/10/20 05:20 99.6 F 01/10/20 04:02 99.8 F H 110 H 18 159/82 H 100 01/10/20 03:05 99.9 F H Weight Weight 176 lb I&O: 01/09/20 01/10/20 01/11/20 06:59 06:59 06:59 Intake Total 1560 1490 Balance 1560 1490 Result Diagrams: 01/08/20 05:41 01/08/20 05:41 Additional Labs: Accuchecks 01/10/20 01/09/20 01/09/20 03:37 22:50 19:11 POC Glucose 190 H 153 H 250 H 01/09/20 01/09/20 15:40 11:33 POC Glucose 118 H 168 H Radiology Reviewed by me: Yes Hospitalist ROS - Review of Systems Constitutional: reports: fever. denies: chills, sweats, weakness, malaise, other ENT: denies: ear pain, ear discharge, nose pain, nose discharge, nose congestion , mouth pain, mouth swelling, throat pain, throat swelling, other Respiratory: denies: cough, dry, shortness of breath, hemoptysis, SOB with excertion, pleuritic pain, sputum, wheezing, other Cardiovascular: denies: chest pain, palpitations, orthopnea, paroxysmal noc. dyspnea, edema, light headedness, other Gastrointestinal: denies: nausea, vomiting, abdominal pain, diarrhea, constipation, melena, hematochezia, other Genitourinary: denies: dysuria, frequency, incontinence, hematuria, retention, other Musculoskeletal: denies: neck pain, shoulder pain, arm pain, back pain, hand pain, leg pain, foot pain, other Skin: denies: rash, lesions, darci, bruising, other - Medication Medications: Active Medications Generic Name Dose Route Start Last Admin Trade Name Freq PRN Reason Stop Dose Admin Acetaminophen 650 mg 01/10/20 03:15 01/10/20 04:29 Tylenol PO 650 mg Q4H PRN Administration Headache/Fever or Pain Atorvastatin Calcium 40 mg 01/09/20 21:00 01/09/20 20:26 Lipitor PO 40 mg HS KOBI Administration Citalopram Hydrobromide 40 mg 01/08/20 09:00 01/10/20 08:26 Celexa PO 40 mg DAILY KOBI Administration Promethazine HCl 12.5 mg/ 50.5 mls @ 202 mls/hr 01/07/20 23:11 01/08/20 00:00 Sodium Chloride IVPB 50.5 mls Q6H PRN Administration Nausea Prochlorperazine Edisylate 10 52 mls @ 150 mls/hr 01/08/20 04:16 01/08/20 05: 13 mg/ Sodium Chloride IVPB 52 mls Q4H PRN Administration Nausea/Vomiting Ceftriaxone Sodium 1 gm/ 100 mls @ 200 mls/hr 01/10/20 08:15 01/10/20 08:25 Sodium Chloride IVPB 100 mls Q24HR KOBI Administration Insulin Human Lispro 0 units 01/07/20 22:13 01/10/20 05:21 Humalog SC 2 unit .MILD SLIDING SCALE PRN Administration Mild Correctional Scale Isosorbide Mononitrate 60 mg 01/09/20 09:00 01/10/20 08:28 Imdur PO 60 mg DAILY KOBI Administration Lisinopril 20 mg 01/09/20 21:00 01/09/20 20:25 Zestril PO 20 mg HS KOBI Administration Metformin HCl 1,000 mg 01/09/20 09:00 01/10/20 08:26 Glucophage PO 1,000 mg BID KOBI Administration Metoprolol Succinate 12.5 mg 01/09/20 09:00 01/10/20 08:27 Toprol Xl PO 12.5 mg DAILY KOBI Administration Morphine Sulfate 2 mg 01/07/20 22:14 01/10/20 03:00 Morphine SLOW IVP 2 mg Q4H PRN Administration Moderate Pain (4-6) Sodium Chloride 10 ml 01/08/20 09:00 01/10/20 08:28 Flush - Normal Saline IVF 10 ml Q12HR KOBI Administration - Exam General Appearance: NAD, awake alert Eye: PERRL, anicteric sclera ENT: normocephalic atraumatic, no oropharyngeal lesions Neck: supple, symmetric, no JVD Heart: RRR, no murmur, no gallops, no rubs Respiratory: CTAB, no wheezes, no rales, no ronchi Gastrointestinal: soft, non-tender, non-distended, normal bowel sounds Extremities: no cyanosis, no clubbing, no edema Skin: normal turgor, no lesions, no rashes Neurological: no focal deficits Musculoskeletal: normal tone, normal strength Psychiatric: normal affect, normal behavior Hosp A/P (1) Partial small bowel obstruction Status: Acute (2) Obesity (BMI 30.0-34.9) Code(s): E66.9 - OBESITY, UNSPECIFIED Status: Chronic (3) CAD (coronary artery disease) Code(s): I25.10 - ATHSCL HEART DISEASE OF [place] CORONARY ARTERY W/O ANG PCTRS Status: Chronic (4) HTN (hypertension) Code(s): I10 - ESSENTIAL (PRIMARY) HYPERTENSION Status: Chronic (5) UTI (urinary tract infection) Status: Acute Qualifiers: Urinary tract infection type: acute pyelonephritis Qualified Code(s): N10 - Acute pyelonephritis - Plan old records reviewed/req, continue antibiotics 01/08/20 today small bowel xray pt is NPO surgeon on case continue conservative treatment for now medication reviewed and continue supportive care and symptomatic treatment 01/09/20 advance diet today start PT/OT restart home meds expecting discharge tomorrow if tolerates diet 01/10/20 start rocephin if no fever and pt feels OK to home, then will give ceftin for 7 days stable and improving
--- NOTE | 2020-01-10 12:27 | DIS ---
DATE OF ADMISSION: 01/07/2020 DATE OF DISCHARGE: 01/10/2020 PRIMARY CARE PHYSICIAN: Dr. Hinton. DISCHARGE DISPOSITION: Home. PRIMARY DISCHARGE DIAGNOSES: 1. Partial small-bowel obstruction, resolved. 2. Urinary tract infection. SECONDARY DISCHARGE DIAGNOSES: Obesity with BMI of 32, hypertension, coronary artery disease. PRIMARY PROCEDURE/OPERATION: None. RADIOLOGICAL INVESTIGATION: Abdomen and pelvis CT scan showed partial small-bowel obstruction. Chest x-ray normal. Small bowel x-ray showed resolution of small-bowel obstruction. Chest x-ray was unremarkable. SIGNIFICANT LABORATORY DATA: WBC 9.4, hemoglobin 11.7, platelet 180. Sodium 134, creatinine 0.81, calcium 9.2. Cardiac enzyme negative. Urinalysis suspected for urinary tract infection. DISCHARGE MEDICATIONS: 1. Lipitor 40 mg p.o. at bedtime. 2. Celexa 40 mg daily. 3. Imdur 60 mg daily. 4. Lisinopril 20 mg bedtime. 5. Toprol-XL 12.5 mg daily. 6. Metformin 1000 mg p.o. b.i.d. 7. Cefuroxime 250 mg p.o. b.i.d. for 7 days. CONTRAINDICATION: None. CODE STATUS: Full code. INPATIENT SKILLS INSTRUCTOR: Dr. Torres of General Surgery was consulted. TEST RESULTS PENDING ON DISCHARGE: None. ALLERGIES: LEVOFLOXACIN. DISCHARGE PLAN: Posthospital, the patient will follow up with primary care physician in 1 week. HOSPITAL COURSE: A 64-year-old female who was admitted to the hospital by Dr. Jennifer Pantoja. Please see her H and P for further details. The patient was having abdominal pain and abdominal discomfort, and in the emergency room, abdomen and pelvis CT scan showed partial small-bowel obstruction. The patient was admitted to the medical floor under Medicine Service and the patient was treated conservatively with NG tube with low intermittent suction and p.o. and pain control. Subsequently, the patient had small bowel x-ray which showed improvement in her obstruction finding. The patient was started on liquid diet and advanced diet to regular diet without any problem. The patient had episode of fever while in hospital and we did urinalysis and suspected urinary tract infection and that is why we treated her with Rocephin while in hospital and we are going to change to Ceftin on discharge based on her previous culture and sensitivity result, and I have advised the patient to follow up with her primary care physician next week and necessary adjustment in medication if needed. If the patient does not get any further fever later on today and the patient is okay, then we will consider discharging her home later on today if possible, otherwise she will stay later on and discharge based on culture result and when the patient wants. Job ID: [id number]
--- NOTE | 2020-01-10 12:41 | PDOC.GSPN ---
Surgery Progress Note: Subj - Subjective Narrative: Patient is hospital day #4 for partial small bowel obstruction. She has been tolerating a regular diet with her NG tube out and is passing stool and gas. Overnight she reports a fever up to 101 and intense myalgias in her shoulder and quadriceps. Blood cultures, urine and a CXR were ordered. Today patient was seen and reports feeling much improved however anxious about what caused her symptoms overnight. Currently reports tolerating diet, passing multiple watery stools and flatus, and pain is well controlled. She denies n/v, abdominal distension, anorexia, chills, current myalgias, SOB, cough, sore throat, dysuria , polyuria, or urinary urgency. Surgery Progress Note: Obj - Vital signs Vital signs: Vital Signs - Most Recent Temp Pulse Resp BP Pulse Ox 98.5 F 77 18 103/51 L 97 01/10/20 11:34 01/10/20 11:34 01/10/20 11:34 01/10/20 11:34 01/10/20 11:34 - Physical Exam General: no distress, well developed, well nourished Cardiovascular: regular rate and rhythm, no murmur Respiratory: clear to auscultation, normal expansion, normal respiratory effort , breath sounds present Abdomen: soft, nondistended, positive bowel sounds, tender (moderately tender in mid abdomen, however improving from previously) Psychiatric: memory intact, oriented to time, oriented to person, oriented to place, speech is normal Surgery Progress Note: Results - Labs Result Diagrams: 01/08/20 05:41 01/08/20 05:41 Lab results: Laboratory Results - last 24 hr 01/10/20 01/10/20 01/10/20 03:37 05:24 11:21 POC Glucose 190 H 164 H Urine Color Yellow Urine Clarity Clear Urine pH 5.0 Ur Specific [place] 1.021 Urine Protein 30 A Urine Glucose (UA) Normal Urine Ketones Negative Urine Blood Negative Urine Nitrite 1+ A Urine Bilirubin Negative Urine Urobilinogen 2.0 A Ur Leukocyte Esterase 500 A Urine RBC 0-3 Urine WBC 7-10 A Ur Squamous Epith Cells 4-6 A Urine Bacteria 2+ A Hyaline Casts 4-6 A Surgery Progress Note: A/P - Plan Plan: Assessment: 1. Partial SBO 2. Hx of CAD, CHF, DM II, and HTN PLan: Patient reports feeling improved from overnight and is still tolerating her diet and passing stool. Urinalysis reviewed and thought likely to be contaminated. CXR compared to previous and appears to be unchanged if not slightly improved. Blood cultures pending. Fever and myalgias at night along with sx of diarrhea are thought to be due to possible gastroenteritis, which will be managed symptomatically. Will continue regular diet, encourage frequent ambulation, and anticipate discharge. Patient was seen and evaluated by Dr Torres at morning rounds. Plan was discussed with patient who is in agreement
[2020-01-10] MEDS: Atorvastatin Calcium 40 MG TAB PO SCH (20:12)
[2020-01-10] MEDS: Lisinopril 20 MG TAB PO SCH (20:12)
--- NOTE | 2020-01-11 01:54 | PRG ---
DATE OF SERVICE: 01/10/2020 SUBJECTIVE: Patient is seen this evening, lying in bed, resting comfortably and asleep, but no signs of acute distress. Nursing reported no acute events. The patient last night did have fever and chills. At that time, chest x-ray, blood, and urine cultures were sent. Other lab studies have not been completed. The patient continues to pass gas, have bowel movements, and tolerate her regular diet. It appears that her partial small-bowel obstruction has resolved. It is unclear as to why the patient was kept overnight but discharged at the discretion of the primary service. OBJECTIVE: VITAL SIGNS: Temperature 99.8, pulse 83, respirations 20, oxygen saturation 97% on room air, blood pressure 101/58. GENERAL: Well-appearing elderly female, lying in bed on her right side, asleep with no signs of acute distress. PULMONARY: Equal chest rise and fall. No signs of acute respiratory distress. ASSESSMENT: 1. Partial small bowel obstruction versus gastroenteritis. 2. History of coronary artery disease, congestive heart failure, diabetes, and hypertension. 3. Generalized body aches and reported fever. PLAN: It appears that the patient's possible small-bowel obstruction has now resolved. She is tolerating a regular diet, we will continue that. Continue ambulating as much as possible. Primary service is managing the patient's generalized complaints. She is currently on IV antibiotics. Trauma Service will continue to follow along with the patient, discharge per the discretion of the hospitalist team. Job ID: [id number]
[2020-01-11] MEDS: metFORMIN 500 MG TAB PO SCH (09:02)
[2020-01-11] MEDS: Citalopram 20 MG TAB PO SCH (09:02)
[2020-01-11] MEDS: cefTRIAXone\\ROCEPHIN 1 GM in Sodium Chloride 0.9% 100 ML IVPB SCH (09:03)
[2020-01-11 09:19] VITALS: BP 122/53; TEMP 98.7
--- NOTE | 2020-01-11 14:29 | EKG ---
Test Reason : Blood Pressure : / mmHG Vent. Rate : 075 BPM Atrial Rate : 075 BPM P-R Int : 150 ms QRS Dur : 084 ms QT Int : 396 ms P-R-T Axes : 039 028 148 degrees QTc Int : 442 ms Normal sinus rhythm Abnormal ECG T wave inversion I, aVL Similar to 10/[address] elevation/UT Confirmed by ALKA SHOEMAKER M.D. ([id number]), managing editor FADY TRAN ([id number] on 01/11/2020 2:29:31 PM Referred By: Confirmed By:ALKA SHOEMAKER M.D.
--- NOTE | 2020-01-11 22:36 | PDOC.EVN ---
Event Note - Event Note Event Note: Patient was discharged in the morning after staying overnight, per patient because she developed cramps. This morning, symptoms resolved and she has no complaints. Following discharge, urinary culture grew e. coli. However, patient is asymptomatic. Patient was contacted and educated regarding asymptomatic bacteriuria and symptoms associated with UTI and was requested to inform PCP to initiate outpatient treatment in case UTI symptoms develop. For remaining discharge summary, please refer to discharge note 01/10.
== END 2020-01-11 11:10 | disposition home or self-care (01) | DRG 389 ==
LOC: ERS 17:25 → T4-A 21:52
PROVIDERS: ADMIT Internal Medicine; ATTEND Internal Medicine
DX: K56.600 Partial intestinal obstruction, unspecified as to cause (principal); N10 Acute pyelonephritis; B96.20 Unspecified Escherichia coli [E. coli] as the cause of diseases classified elsewhere; E11.9 Type 2 diabetes mellitus without complications; I11.0 Hypertensive heart disease with heart failure; I50.9 Heart failure, unspecified; E66.9 Obesity, unspecified; I25.10 Atherosclerotic heart disease of native coronary artery without angina pectoris; D64.9 Anemia, unspecified; F32.9 Major depressive disorder, single episode, unspecified; E78.5 Hyperlipidemia, unspecified; Z68.32 Body mass index [BMI] 32.0-32.9, adult; Z95.5 Presence of coronary angioplasty implant and graft; Z95.1 Presence of aortocoronary bypass graft; Z90.49 Acquired absence of other specified parts of digestive tract; Z93.3 Colostomy status; Z87.891 Personal history of nicotine dependence; Z88.1 Allergy status to other antibiotic agents; Z79.84 Long term (current) use of oral hypoglycemic drugs; Z79.899 Other long term (current) drug therapy; Z98.51 Tubal ligation status; Z86.73 Personal history of transient ischemic attack (TIA), and cerebral infarction without residual deficits
CPT/HCPCS: 36415; 36416; 71045; 74018; 74177; 74250; 80048; 80053; 81001; 81003; 81015; 82607; 82728; 82746; 83540; 83550; 83605; 83690; 84484; 85025; 85027; 87040; 87077; 87086; 87186; 93005; 93010; 96361; 96374; 96375; 96376; J0696; J0780; J2270; J2405; J2550; J3010; J3490; Q0162; Q9963; Q9967

== ENCOUNTER 2020-11-26 08:54 | Emergency (ER) | payer MEDICARE ==
[2020-11-26 12:51] LABS: SARS-CoV-2 MS2 Negative; SARS-CoV-2 N Gene Positive; SARS-CoV-2 S Gene Positive; SARS-CoV-2 by NAA DETECTED (NotDetected); SARS-CoV-2 orf1ab Positive
== END 2020-11-26 10:07 | disposition home or self-care (01) ==
LOC: ERS 08:54
DX: U07.1 COVID-19 (principal); E11.9 Type 2 diabetes mellitus without complications; I11.0 Hypertensive heart disease with heart failure; I50.9 Heart failure, unspecified; Z86.73 Personal history of transient ischemic attack (TIA), and cerebral infarction without residual deficits; Z95.1 Presence of aortocoronary bypass graft
CPT/HCPCS: 87804 ×2; 99283; U0003; 87635

== ENCOUNTER 2021-02-08 14:58 | Observation (INO) | payer MEDICARE ==
[2021-02-08] MEDS ORDERED: Nitroglycerin 2% Ointment 1 INCH/1 GM Packet ONE (15:12)
[2021-02-08] MEDS ORDERED: Aspirin 81 mg Enteric Coated Tablet ONE (15:12)
[2021-02-08 16:16] LABS: #Eosinphils 0.1 thou/uL (0.0-0.7); #Lymphocytes 2.2 thou/uL (1.20-3.40); #Monocytes 0.4 thou/uL (0.11-0.59); #Neutrophils 4.2 thou/uL (1.40-6.50); %Basophils 0.3 % (0.0-1.0); %Eosinophils 1.2 % (0.0-10.0); %Lymphocytes 31.7 % (21.0-51.0); %Monocytes 5.5 % (0.0-10.0); %Neutrophils 61.4 % (42.0-75.0); Hemoglobin 10.8 g/dL (12.0-16.0); Mean Corpuscular HGB CONC 33.8 g/dL (32.0-36.0); Mean Corpuscular Hemoglobin 27.3 pg (27.0-31.0); Mean Corpuscular Volume 80.7 fL (78.0-98.0); Mean Platelet Volume 8.8 fL (7.4-10.4); Platelet Count 172 thou/uL (130-400); RBC Distribution Width 14.9 % (11.5-14.5); Red Blood Cell (RBC) Count 3.97 mill/uL (4.20-5.40); White Blood Cell (WBC) Count 6.9 thou/uL (4.8-10.8)
[2021-02-08 16:36] LABS: ALT (SGPT) 13 U/L (8-55); AST (SGOT) 16 U/L (5-34); Albumin 4.1 g/dL (3.4-4.8); Alkaline Phosphatase 97 U/L (40-110); Anion Gap 14 mmol/L (10-20); BUN (Urea Nitrogen) 16 mg/dL (9.8-20.1); Bilirubin, Total 0.2 mg/dL (0.2-1.2); Calc. Creatinine Clearance 0 mL/min (70-130); Calcium 9.1 mg/dL (7.8-10.44); Carbon Dioxide 23 mmol/L (23-31); Chloride 105 mmol/L (98-107); Globulin 3.9 g/dL (2.4-3.5); Glucose 148 mg/dL (80-115); Lipase 49 U/L (8-78); Potassium 4.2 mmol/L (3.5-5.1); Sodium 138 mmol/L (136-145)
[2021-02-08] MEDS ORDERED: Labetalol HCl 100 MG/20 ML VIAL SLOW IVP PRN (17:10)
[2021-02-08] MEDS ORDERED: cloNIDine 0.1 MG TAB PO PRN (17:10)
[2021-02-08] MEDS ORDERED: Ondansetron ODT 4 MG TAB PO PRN (19:42)
[2021-02-08] MEDS ORDERED: Ondansetron PF 4 MG/2 ML Vial IVP PRN (19:42)
[2021-02-08] MEDS ORDERED: Melatonin 3 MG TAB PO SCH (20:00)
[2021-02-08] MEDS ORDERED: Nitroglycerin 0.4 MG TAB (25 Tab Bottle) ONE (20:06)
[2021-02-08] MEDS ORDERED: Morphine 2 MG/ML VIAL SLOW IVP PRN (20:24)
[2021-02-08] MEDS ORDERED: Carvedilol 3.125 MG TAB PO SCH (20:30)
[2021-02-08] MEDS ORDERED: Nitroglycerin 0.4 MG TAB (25 Tab Bottle) SL PRN (21:48)
[2021-02-08] MEDS ORDERED: HumaLOG 300 UNITS/3 ML VIAL SC PRN ×2 (21:53)
[2021-02-08] MEDS ORDERED: Dextrose 5% in Water 1,000 ML IV PRN (21:53)
[2021-02-08] MEDS ORDERED: Dextrose 50% Abboject 50 ML SYRINGE SLOW IVP PRN (21:53)
[2021-02-08 22:20] VITALS: BMI 32.5
[2021-02-08] MEDS: Nitroglycerin 2% Ointment 1 INCH/1 GM Packet TOP SCH (22:50)
[2021-02-08 23:14] LABS: Troponin I Less than 0.010 ng/mL (< 0.028)
[2021-02-08 23:23] LABS: Bilirubin Negative (Negative); Blood, Urine Negative (Negative); Clarity Clear (Clear); Glucose, Urine (Dipstick) Normal (Negative); Ketone, Urine Negative (Negative); Leukocyte 500 Leu/uL (Negative); Nitrite Negative (Negative); Protein, Urine (Dipstick) Negative (Neg-Trace); Specific Gravity, Urine 1.015 (1.002-1.036); Urobilinogen Normal mg/dL (Less than 2); WBC/HPF 21-50 HPF (0-3)
[2021-02-08 23:25] LABS: Bacteria/HPF 1+ HPF (None Seen)
[2021-02-09 01:20] LABS: Troponin I 0.022 ng/mL (< 0.028)
[2021-02-09] MEDS: Nitroglycerin 2% Ointment 1 INCH/1 GM Packet TOP SCH ×2 (05:20→15:06)
[2021-02-09 05:24] LABS: Cardiac Risk 5.5 (Less than 4.5)
[2021-02-09 08:49] LABS: SARS-CoV-2 PCR by NAA Indeterminate (NotDetected)
[2021-02-09] MEDS ORDERED: Aspirin Chewable 81 MG TAB PO SCH (09:00)
[2021-02-09] MEDS ORDERED: FLU VACC QS2020-21(65YR UP)/PF 240 MCG/0.7 ML SYRINGE IM ONE (09:00)
[2021-02-09] MEDS ORDERED: Famotidine 20 MG TAB PO SCH (09:00)
[2021-02-09] MEDS ORDERED: Citalopram 20 MG TAB PO SCH (09:00)
[2021-02-09 12:48] VITALS: TEMP 98.4
[2021-02-09 16:04] VITALS: BP 125/58
[2021-02-09] MEDS ORDERED: Gabapentin 300 MG CAP PO SCH (21:00)
[2021-02-09] MEDS ORDERED: Atorvastatin Calcium 20 MG TAB PO SCH (21:00)
[2021-02-09] MEDS ORDERED: Lisinopril 20 MG TAB PO SCH (21:00)
== END 2021-02-09 16:45 | disposition home or self-care (01) ==
LOC: ERS 14:58 → 2NO 18:48
PROVIDERS: ADMIT Internal Medicine; ATTEND Internal Medicine
DX: R07.89 Other chest pain (principal); I16.0 Hypertensive urgency; I11.0 Hypertensive heart disease with heart failure; I50.9 Heart failure, unspecified; E11.42 Type 2 diabetes mellitus with diabetic polyneuropathy; I25.10 Atherosclerotic heart disease of native coronary artery without angina pectoris; E78.5 Hyperlipidemia, unspecified; F32.9 Major depressive disorder, single episode, unspecified; R10.32 Left lower quadrant pain; R19.7 Diarrhea, unspecified; Z68.32 Body mass index [BMI] 32.0-32.9, adult; E66.9 Obesity, unspecified; Z86.73 Personal history of transient ischemic attack (TIA), and cerebral infarction without residual deficits; Z87.891 Personal history of nicotine dependence; Z79.84 Long term (current) use of oral hypoglycemic drugs; Z79.899 Other long term (current) drug therapy; Z88.1 Allergy status to other antibiotic agents; Z95.1 Presence of aortocoronary bypass graft; Z20.822 Contact with and (suspected) exposure to COVID-19
CPT/HCPCS: 71045; 74018; 80061; 81001; 82962; 83690; 83735; 83880; 84484 ×3; 93005; 94760 ×2; 96374; 99285; G0378 ×3; J2270; U0003; U0005; 36415; 36416; 80053; 84443; 85025; 87635; 93010; Q0162

== ENCOUNTER 2021-04-23 13:24 | Observation (INO) | payer MEDICARE ==
[2021-04-23 14:01] LABS: #Basophils 0.1 thou/uL (0.0-0.2); #Eosinphils 0.1 thou/uL (0.0-0.7); #Lymphocytes 1.9 thou/uL (1.20-3.40); #Monocytes 0.6 thou/uL (0.11-0.59); #Neutrophils 6.2 thou/uL (1.40-6.50); %Basophils 0.8 % (0.0-1.0); %Eosinophils 1.3 % (0.0-10.0); %Lymphocytes 21.6 % (21.0-51.0); %Monocytes 6.9 % (0.0-10.0); %Neutrophils 69.4 % (42.0-75.0); Hemoglobin 12.1 g/dL (12.0-16.0); Mean Corpuscular HGB CONC 34.1 g/dL (32.0-36.0); Mean Corpuscular Hemoglobin 27.6 pg (27.0-31.0); Mean Platelet Volume 8.8 fL (7.4-10.4); Platelet Count 175 thou/uL (130-400); RBC Distribution Width 14.2 % (11.5-14.5); Red Blood Cell (RBC) Count 4.37 mill/uL (4.20-5.40); White Blood Cell (WBC) Count 8.9 thou/uL (4.8-10.8)
[2021-04-23 14:12] LABS: Bacteria/HPF None Seen HPF (None Seen); Bilirubin Negative (Negative); Blood, Urine Negative (Negative); Clarity Clear (Clear); Glucose, Urine (Dipstick) Normal (Negative); Ketone, Urine Negative (Negative); Leukocyte 500 Leu/uL (Negative); Nitrite Negative (Negative); Protein, Urine (Dipstick) 30 mg/dL (Neg-Trace); RBC/HPF 0-3 HPF (0-3); Specific Gravity, Urine 1.024 (1.002-1.036); Squamous Epithelial 0-3 HPF (0-3); Urobilinogen Normal mg/dL (Less than 2)
[2021-04-23 14:31] LABS: ALT (SGPT) 11 U/L (8-55); AST (SGOT) 14 U/L (5-34); Albumin 4.1 g/dL (3.4-4.8); Alkaline Phosphatase 95 U/L (40-110); Anion Gap 14 mmol/L (10-20); BUN (Urea Nitrogen) 15 mg/dL (9.8-20.1); Bilirubin, Total 0.4 mg/dL (0.2-1.2); Calc. Creatinine Clearance 0 mL/min (70-130); Calcium 9.3 mg/dL (7.8-10.44); Carbon Dioxide 26 mmol/L (23-31); Chloride 105 mmol/L (98-107); Globulin 3.6 g/dL (2.4-3.5); Glucose 190 mg/dL (80-115); Potassium 4.6 mmol/L (3.5-5.1); Protein, Total 7.7 g/dL (5.8-8.1); Sodium 140 mmol/L (136-145)
[2021-04-23] MEDS ORDERED: cefTRIAXone\\ROCEPHIN 2 GM VIAL ONE (15:02)
[2021-04-23 17:21] LABS: Troponin I Less than 0.010 ng/mL (< 0.028)
[2021-04-23 17:34] VITALS: BMI 33.5
[2021-04-23] MEDS ORDERED: Ondansetron PF 4 MG/2 ML Vial IVP PRN (17:45)
[2021-04-23] MEDS ORDERED: Ondansetron ODT 4 MG TAB SL PRN (17:45)
[2021-04-23] MEDS ORDERED: Nitroglycerin 0.4 MG TAB (25 Tab Bottle) SL PRN (18:25)
[2021-04-23] MEDS ORDERED: hydrALAZINE 20 MG/ML VIAL SLOW IVP PRN (18:27)
[2021-04-23 20:11] LABS: Troponin I Less than 0.010 ng/mL (< 0.028)
[2021-04-23] MEDS: Heparin 5,000 UNITS/ML VIAL SC SCH (21:44)
[2021-04-23] MEDS: Atorvastatin Calcium 20 MG TAB PO SCH (21:46)
[2021-04-23] MEDS: Gabapentin 300 MG CAP PO SCH (21:46)
[2021-04-23] MEDS: Lorazepam 0.5 MG TAB PO PRN (21:49)
[2021-04-24 00:09] LABS: SARS-CoV-2 PCR by NAA Not Detected (NotDetected)
[2021-04-24 04:45] LABS: #Basophils 0.1 thou/uL (0.0-0.2); #Eosinphils 0.1 thou/uL (0.0-0.7); #Lymphocytes 2.5 thou/uL (1.20-3.40); #Monocytes 0.6 thou/uL (0.11-0.59); #Neutrophils 3.8 thou/uL (1.40-6.50); %Basophils 1.2 % (0.0-1.0); %Eosinophils 1.7 % (0.0-10.0); %Lymphocytes 35.5 % (21.0-51.0); %Neutrophils 53.6 % (42.0-75.0); Hemoglobin 10.5 g/dL (12.0-16.0); Mean Corpuscular HGB CONC 31.9 g/dL (32.0-36.0); Mean Corpuscular Hemoglobin 25.9 pg (27.0-31.0); Mean Corpuscular Volume 81.1 fL (78.0-98.0); Mean Platelet Volume 8.9 fL (7.4-10.4); Platelet Count 163 thou/uL (130-400); RBC Distribution Width 14.3 % (11.5-14.5); Red Blood Cell (RBC) Count 4.06 mill/uL (4.20-5.40); White Blood Cell (WBC) Count 7.1 thou/uL (4.8-10.8)
[2021-04-24 05:06] LABS: Anion Gap 12 mmol/L (10-20); BUN (Urea Nitrogen) 16 mg/dL (9.8-20.1); Calc. Creatinine Clearance 68 mL/min (70-130); Calcium 9.2 mg/dL (7.8-10.44); Carbon Dioxide 24 mmol/L (23-31); Chloride 104 mmol/L (98-107); Glucose 165 mg/dL (80-115); Potassium 4.3 mmol/L (3.5-5.1); Sodium 136 mmol/L (136-145)
[2021-04-24] MEDS: metFORMIN 500 MG TAB PO SCH (09:25)
[2021-04-24] MEDS: Aspirin Chewable 81 MG TAB PO SCH (09:25)
[2021-04-24] MEDS: Citalopram 20 MG TAB PO SCH (09:25)
[2021-04-24] MEDS: Heparin 5,000 UNITS/ML VIAL SC SCH ×3 (09:26→20:54)
[2021-04-24] MEDS ORDERED: cefTRIAXone\\ROCEPHIN 1 GM in Sodium Chloride 0.9% 100 ML IVPB SCH (15:00)
[2021-04-24] MEDS: Lorazepam 0.5 MG TAB PO PRN (20:56)
[2021-04-24] MEDS: Atorvastatin Calcium 20 MG TAB PO SCH (20:56)
[2021-04-24] MEDS: Gabapentin 300 MG CAP PO SCH (20:56)
[2021-04-25] MEDS: Heparin 5,000 UNITS/ML VIAL SC SCH (07:57)
[2021-04-25] MEDS: Citalopram 20 MG TAB PO SCH (07:57)
[2021-04-25] MEDS: Aspirin Chewable 81 MG TAB PO SCH (07:57)
[2021-04-25] MEDS: metFORMIN 500 MG TAB PO SCH (07:57)
[2021-04-25 09:11] VITALS: TEMP 97.7
[2021-04-25 12:48] VITALS: BP 145/64
== END 2021-04-25 13:30 | disposition home or self-care (01) ==
LOC: ERS 13:24 → 2SW 15:38
PROVIDERS: ADMIT Internal Medicine; ATTEND Internal Medicine
DX: R07.9 Chest pain, unspecified (principal); N39.0 Urinary tract infection, site not specified; B96.20 Unspecified Escherichia coli [E. coli] as the cause of diseases classified elsewhere; I25.10 Atherosclerotic heart disease of native coronary artery without angina pectoris; E11.42 Type 2 diabetes mellitus with diabetic polyneuropathy; I11.0 Hypertensive heart disease with heart failure; I50.9 Heart failure, unspecified; Z79.84 Long term (current) use of oral hypoglycemic drugs; Z79.899 Other long term (current) drug therapy; Z20.822 Contact with and (suspected) exposure to COVID-19; Z86.73 Personal history of transient ischemic attack (TIA), and cerebral infarction without residual deficits; Z88.1 Allergy status to other antibiotic agents; Z95.1 Presence of aortocoronary bypass graft; Z95.5 Presence of coronary angioplasty implant and graft
CPT/HCPCS: 71045; 80048; 80053; 82962 ×3; 83605; 84484 ×2; 85025 ×2; 87040; 87086; 93005; 96365; 99285; U0003; U0005; 36415; 36416; 81003; 81015; 96372; 96375; G0378; J0360; J0696; J1644; J3490

== ENCOUNTER 2021-05-21 20:59 | Inpatient (IN) | payer MEDICARE ==
[2021-05-21] MEDS ORDERED: Aspirin Chewable 81 MG TAB ONE (21:26)
[2021-05-21] MEDS ORDERED: Nitroglycerin 2% Ointment 1 INCH/1 GM Packet ONE (21:27)
[2021-05-21 21:35] LABS: #Eosinphils 0.1 thou/uL (0.0-0.7); #Lymphocytes 2.6 thou/uL (1.20-3.40); #Monocytes 0.5 thou/uL (0.11-0.59); #Neutrophils 3.8 thou/uL (1.40-6.50); %Basophils 0.5 % (0.0-1.0); %Eosinophils 1.7 % (0.0-10.0); %Lymphocytes 36.9 % (21.0-51.0); %Monocytes 6.8 % (0.0-10.0); %Neutrophils 54.2 % (42.0-75.0); Hemoglobin 11.2 g/dL (12.0-16.0); Mean Corpuscular HGB CONC 34.1 g/dL (32.0-36.0); Mean Corpuscular Hemoglobin 27.7 pg (27.0-31.0); Mean Corpuscular Volume 81.2 fL (78.0-98.0); Mean Platelet Volume 8.9 fL (7.4-10.4); Platelet Count 148 thou/uL (130-400); RBC Distribution Width 14.3 % (11.5-14.5); Red Blood Cell (RBC) Count 4.03 mill/uL (4.20-5.40); White Blood Cell (WBC) Count 6.9 thou/uL (4.8-10.8)
[2021-05-21] MEDS ORDERED: Boostrix 0.5 ML (Tdap) VIAL ONE (21:54)
[2021-05-21 21:56] LABS: ALT (SGPT) 8 U/L (8-55); AST (SGOT) 14 U/L (5-34); Albumin 4.2 g/dL (3.4-4.8); Alkaline Phosphatase 100 U/L (40-110); Anion Gap 15 mmol/L (10-20); BUN (Urea Nitrogen) 13 mg/dL (9.8-20.1); Bilirubin, Total 0.2 mg/dL (0.2-1.2); Calc. Creatinine Clearance 0 mL/min (70-130); Calcium 9.3 mg/dL (7.8-10.44); Carbon Dioxide 22 mmol/L (23-31); Chloride 103 mmol/L (98-107); Globulin 4.1 g/dL (2.4-3.5); Glucose 260 mg/dL (80-115); Potassium 4.1 mmol/L (3.5-5.1); Protein, Total 8.3 g/dL (5.8-8.1); Sodium 136 mmol/L (136-145)
[2021-05-22] MEDS ORDERED: Senokot S 8.6-50 MG TAB PO PRN (00:21)
[2021-05-22] MEDS ORDERED: Acetaminophen 325 MG TAB PO PRN (00:21)
[2021-05-22] MEDS ORDERED: Temazepam 15 MG CAP PO PRN (00:25)
[2021-05-22] MEDS ORDERED: Dextrose 50% Abboject 50 ML SYRINGE SLOW IVP PRN (00:26)
[2021-05-22] MEDS ORDERED: Dextrose 5% in Water 1,000 ML IV PRN (00:26)
[2021-05-22] MEDS ORDERED: HumaLOG 300 UNITS/3 ML VIAL SC PRN (00:26)
[2021-05-22] MEDS ORDERED: Nitroglycerin 0.4 MG TAB (25 Tab Bottle) SL PRN (00:28)
[2021-05-22] MEDS ORDERED: Ondansetron PF 4 MG/2 ML Vial IVP PRN (01:00)
[2021-05-22] MEDS ORDERED: Ondansetron ODT 4 MG TAB SL PRN (01:00)
[2021-05-22 01:32] LABS: Troponin I Less than 0.010 ng/mL (< 0.028)
[2021-05-22 01:50] VITALS: BMI 33.5
[2021-05-22] MEDS ORDERED: Gabapentin 300 MG CAP PO SCH ×2 (03:30)
[2021-05-22 04:09] LABS: #Eosinphils 0.1 thou/uL (0.0-0.7); #Lymphocytes 2.5 thou/uL (1.20-3.40); #Monocytes 0.5 thou/uL (0.11-0.59); #Neutrophils 3.8 thou/uL (1.40-6.50); %Basophils 0.4 % (0.0-1.0); %Eosinophils 1.4 % (0.0-10.0); %Lymphocytes 36.4 % (21.0-51.0); %Monocytes 7.2 % (0.0-10.0); %Neutrophils 54.7 % (42.0-75.0); Hemoglobin 10.9 g/dL (12.0-16.0); Mean Corpuscular HGB CONC 32.9 g/dL (32.0-36.0); Mean Corpuscular Hemoglobin 26.8 pg (27.0-31.0); Mean Corpuscular Volume 81.5 fL (78.0-98.0); Mean Platelet Volume 8.5 fL (7.4-10.4); Platelet Count 163 thou/uL (130-400); RBC Distribution Width 14.1 % (11.5-14.5); Red Blood Cell (RBC) Count 4.05 mill/uL (4.20-5.40)
[2021-05-22 04:25] LABS: Hemoglobin A1c 6.9 % (4.0-6.0)
[2021-05-22 04:26] LABS: Anion Gap 13 mmol/L (10-20); BUN (Urea Nitrogen) 12 mg/dL (9.8-20.1); Calc. Creatinine Clearance 82 mL/min (70-130); Calcium 9.2 mg/dL (7.8-10.44); Carbon Dioxide 24 mmol/L (23-31); Chloride 106 mmol/L (98-107); Glucose 158 mg/dL (80-115); Sodium 139 mmol/L (136-145)
[2021-05-22 04:31] LABS: Troponin I Less than 0.010 ng/mL (< 0.028)
[2021-05-22] MEDS: Nitroglycerin 2% Ointment 1 INCH/1 GM Packet TOP SCH ×3 (06:38→22:05)
[2021-05-22 08:11] LABS: SARS-CoV-2 NAA Rapid Test Not Detected (NotDetected)
[2021-05-22] MEDS: Aspirin Chewable 81 MG TAB PO SCH (09:13)
[2021-05-22] MEDS: Citalopram 20 MG TAB PO SCH (09:13)
[2021-05-22] MEDS: Enoxaparin Sodium 40 MG/0.4 ML SYRINGE SC SCH (09:14)
[2021-05-22] MEDS: Famotidine 20 MG TAB PO SCH ×2 (09:14→19:58)
[2021-05-22] MEDS: Lisinopril 20 MG TAB PO SCH (09:14)
[2021-05-22] MEDS: HumaLOG 300 UNITS/3 ML VIAL SC PRN (17:20)
[2021-05-22] MEDS: Gabapentin 300 MG CAP PO SCH (19:58)
[2021-05-22] MEDS: Atorvastatin Calcium 20 MG TAB PO SCH (19:58)
[2021-05-22] MEDS: hydrOXYzine 25 MG TAB PO PRN (22:05)
[2021-05-23] MEDS: Nitroglycerin 2% Ointment 1 INCH/1 GM Packet TOP SCH ×3 (05:39→21:12)
[2021-05-23] MEDS: Aspirin Chewable 81 MG TAB PO SCH (08:52)
[2021-05-23] MEDS: Citalopram 20 MG TAB PO SCH (08:52)
[2021-05-23] MEDS: Lisinopril 20 MG TAB PO SCH (08:52)
[2021-05-23] MEDS: Famotidine 20 MG TAB PO SCH ×2 (08:53→20:29)
[2021-05-23] MEDS: Enoxaparin Sodium 40 MG/0.4 ML SYRINGE SC SCH (08:53)
[2021-05-23] MEDS: HumaLOG 300 UNITS/3 ML VIAL SC PRN (11:21)
[2021-05-23] MEDS: Atorvastatin Calcium 20 MG TAB PO SCH (20:29)
[2021-05-23] MEDS: Gabapentin 300 MG CAP PO SCH (20:31)
[2021-05-23] MEDS: hydrOXYzine 25 MG TAB PO PRN (20:33)
[2021-05-24] MEDS: HumaLOG 300 UNITS/3 ML VIAL SC PRN ×2 (05:48→10:45)
[2021-05-24] MEDS: Nitroglycerin 2% Ointment 1 INCH/1 GM Packet TOP SCH ×3 (07:43→21:36)
[2021-05-24] MEDS: Lisinopril 20 MG TAB PO SCH (07:53)
[2021-05-24] MEDS: Aspirin Chewable 81 MG TAB PO SCH (07:54)
[2021-05-24] MEDS: Citalopram 20 MG TAB PO SCH (07:54)
[2021-05-24] MEDS: Enoxaparin Sodium 40 MG/0.4 ML SYRINGE SC SCH (07:55)
[2021-05-24] MEDS: Famotidine 20 MG TAB PO SCH ×2 (07:55→20:41)
[2021-05-24] MEDS ORDERED: Ondansetron PF 4 MG/2 ML Vial IVP PRN (12:09)
[2021-05-24] MEDS ORDERED: Promethazine HCl 25 MG in Sodium Chloride 0.9% 50 ML IVPB PRN (13:21)
[2021-05-24] MEDS: Gabapentin 300 MG CAP PO SCH (16:13)
[2021-05-24] MEDS: Atorvastatin Calcium 20 MG TAB PO SCH (20:41)
[2021-05-24] MEDS: hydrOXYzine 25 MG TAB PO PRN (20:41)
[2021-05-25] MEDS: Nitroglycerin 2% Ointment 1 INCH/1 GM Packet TOP SCH ×3 (05:10→23:25)
[2021-05-25] MEDS: Famotidine 20 MG TAB PO SCH ×2 (07:37→20:25)
[2021-05-25] MEDS: Aspirin Chewable 81 MG TAB PO SCH (07:37)
[2021-05-25] MEDS: Citalopram 20 MG TAB PO SCH (07:37)
[2021-05-25] MEDS: Enoxaparin Sodium 40 MG/0.4 ML SYRINGE SC SCH (07:38)
[2021-05-25] MEDS ORDERED: Lisinopril 10 MG TAB PO SCH (09:00)
[2021-05-25] MEDS ORDERED: Lisinopril 20 MG TAB PO SCH (09:00)
[2021-05-25] MEDS: Gabapentin 300 MG CAP PO SCH (20:25)
[2021-05-25] MEDS: hydrOXYzine 25 MG TAB PO PRN (20:25)
[2021-05-25] MEDS: Atorvastatin Calcium 20 MG TAB PO SCH (20:25)
[2021-05-26] MEDS: Nitroglycerin 2% Ointment 1 INCH/1 GM Packet TOP SCH (05:14)
[2021-05-26 08:17] VITALS: BP 130/60; TEMP 99
[2021-05-26] MEDS: Citalopram 20 MG TAB PO SCH (09:28)
[2021-05-26] MEDS: Enoxaparin Sodium 40 MG/0.4 ML SYRINGE SC SCH (09:28)
[2021-05-26] MEDS: Famotidine 20 MG TAB PO SCH (09:28)
[2021-05-26] MEDS: Aspirin Chewable 81 MG TAB PO SCH (09:28)
== END 2021-05-26 11:58 | disposition home or self-care (01) | DRG 312 ==
LOC: ERS 20:59 → 2SW 23:42 → OBSVTOIN 05-24 10:48
PROVIDERS: ADMIT Internal Medicine; ATTEND Internal Medicine
DX: I95.1 Orthostatic hypotension (principal); Z20.822 Contact with and (suspected) exposure to COVID-19; Z23 Encounter for immunization; E11.40 Type 2 diabetes mellitus with diabetic neuropathy, unspecified; R07.9 Chest pain, unspecified; F32.9 Major depressive disorder, single episode, unspecified; I11.0 Hypertensive heart disease with heart failure; I50.9 Heart failure, unspecified; S51.801A Unspecified open wound of right forearm, initial encounter; E78.5 Hyperlipidemia, unspecified; E66.9 Obesity, unspecified; I08.3 Combined rheumatic disorders of mitral, aortic and tricuspid valves; I25.118 Atherosclerotic heart disease of native coronary artery with other forms of angina pectoris; Z88.1 Allergy status to other antibiotic agents; Z95.5 Presence of coronary angioplasty implant and graft; Z95.1 Presence of aortocoronary bypass graft; Z90.49 Acquired absence of other specified parts of digestive tract; Z98.51 Tubal ligation status; Z87.891 Personal history of nicotine dependence; Z79.899 Other long term (current) drug therapy; Z79.84 Long term (current) use of oral hypoglycemic drugs; Z79.82 Long term (current) use of aspirin; Z68.33 Body mass index [BMI] 33.0-33.9, adult; Z86.73 Personal history of transient ischemic attack (TIA), and cerebral infarction without residual deficits
CPT/HCPCS: 36415; 36416; 71045; 80048; 80053; 83036; 84484; 85025; 90471; 90715; 93005; 93010; 93306; 94760; 96372; G0378; J1650; J1815; J2550; U0002; U0005

== ENCOUNTER 2021-10-19 01:49 | Observation (INO) | payer MEDICARE ==
[2021-10-19 02:59] VITALS: BMI 32.3
[2021-10-19] MEDS ORDERED: hydrALAZINE 20 MG/ML VIAL SLOW IVP PRN ×3 (04:00→14:53)
[2021-10-19] MEDS ORDERED: Dextrose 5% in Water 1,000 ML IV PRN (05:33)
[2021-10-19] MEDS ORDERED: Nitroglycerin 0.4 MG TAB (25 Tab Bottle) SL PRN (05:33)
[2021-10-19] MEDS ORDERED: HumaLOG 300 UNITS/3 ML VIAL SC PRN (05:33)
[2021-10-19] MEDS ORDERED: Acetaminophen 325 MG TAB PO PRN (05:33)
[2021-10-19] MEDS ORDERED: Ondansetron ODT 4 MG TAB PO PRN (05:33)
[2021-10-19] MEDS ORDERED: Acetaminophen 650 MG Suppository PR PRN (05:33)
[2021-10-19] MEDS ORDERED: Ondansetron PF 4 MG/2 ML Vial IVP PRN (05:33)
[2021-10-19] MEDS ORDERED: Dextrose 50% Abboject 50 ML SYRINGE SLOW IVP PRN (05:33)
[2021-10-19] MEDS ORDERED: Enoxaparin Sodium 80 MG/0.8 ML SYRINGE SC SCH ×2 (06:00→21:00)
[2021-10-19] MEDS ORDERED: Aspirin Chewable 81 MG TAB PO SCH (06:00)
[2021-10-19] MEDS: Nitroglycerin 2% Ointment 1 INCH/1 GM Packet TOP SCH ×2 (06:09→18:14)
[2021-10-19] MEDS ORDERED: Enoxaparin Sodium 40 MG/0.4 ML SYRINGE SC SCH (09:00)
[2021-10-19] MEDS: Aspirin Chewable 81 MG TAB PO SCH (17:30)
[2021-10-19] MEDS: Lisinopril 5 MG TAB PO SCH (17:31)
[2021-10-19] MEDS: HumaLOG 300 UNITS/3 ML VIAL SC PRN (17:32)
[2021-10-19] MEDS ORDERED: Gabapentin 300 MG CAP PO SCH (21:00)
[2021-10-19] MEDS ORDERED: Atorvastatin Calcium 20 MG TAB PO SCH (21:00)
[2021-10-20 05:24] LABS: #Eosinphils 0.1 thou/uL (0.0-0.7); #Lymphocytes 2.8 thou/uL (1.20-3.40); #Monocytes 0.6 thou/uL (0.11-0.59); #Neutrophils 3.2 thou/uL (1.40-6.50); %Basophils 0.2 % (0.0-1.0); %Eosinophils 1.7 % (0.0-10.0); %Lymphocytes 41.6 % (21.0-51.0); %Monocytes 8.5 % (0.0-10.0); Hemoglobin 11.2 g/dL (12.0-16.0); Mean Corpuscular HGB CONC 33.9 g/dL (32.0-36.0); Mean Corpuscular Hemoglobin 28.4 pg (27.0-31.0); Mean Corpuscular Volume 83.6 fL (78.0-98.0); Mean Platelet Volume 8.4 fL (7.4-10.4); Platelet Count 169 thou/uL (130-400); RBC Distribution Width 14.1 % (11.5-14.5); Red Blood Cell (RBC) Count 3.97 mill/uL (4.20-5.40); White Blood Cell (WBC) Count 6.8 thou/uL (4.8-10.8)
[2021-10-20 05:43] LABS: Phosphorus 3.3 mg/dL (2.3-4.7)
[2021-10-20 05:45] LABS: Anion Gap 14 mmol/L (10-20); BUN (Urea Nitrogen) 19 mg/dL (9.8-20.1); Calc. Creatinine Clearance 62 mL/min (70-130); Calcium 9.2 mg/dL (7.8-10.44); Carbon Dioxide 25 mmol/L (23-31); Chloride 104 mmol/L (98-107); Glucose 149 mg/dL (80-115); Magnesium 1.9 mg/dL (1.6-2.6); Potassium 4.7 mmol/L (3.5-5.1); Sodium 138 mmol/L (136-145)
[2021-10-20] MEDS ORDERED: Magnesium 2 GM/50 ML 2 GM in Premix Bag 1 BAG IVPB SCH (08:00)
[2021-10-20] MEDS: Aspirin Chewable 81 MG TAB PO SCH (08:25)
[2021-10-20] MEDS: Lisinopril 5 MG TAB PO SCH (08:25)
[2021-10-20] MEDS: HumaLOG 300 UNITS/3 ML VIAL SC PRN (11:10)
[2021-10-20 12:08] VITALS: BP 117/58; TEMP 98.4
== END 2021-10-20 14:08 | disposition home or self-care (01) ==
LOC: 2SW 02:33
PROVIDERS: ADMIT Student in an Organized Health Care Education/Training Program; ATTEND Internal Medicine
DX: R07.89 Other chest pain (principal); I25.10 Atherosclerotic heart disease of native coronary artery without angina pectoris; I47.2 Ventricular tachycardia; E78.5 Hyperlipidemia, unspecified; I12.9 Hypertensive chronic kidney disease with stage 1 through stage 4 chronic kidney disease, or unspecified chronic kidney disease; E11.22 Type 2 diabetes mellitus with diabetic chronic kidney disease; N18.30 Chronic kidney disease, stage 3 unspecified; N17.9 Acute kidney failure, unspecified; D63.1 Anemia in chronic kidney disease; G25.81 Restless legs syndrome; E11.42 Type 2 diabetes mellitus with diabetic polyneuropathy; E78.00 Pure hypercholesterolemia, unspecified; E66.9 Obesity, unspecified; Z68.32 Body mass index [BMI] 32.0-32.9, adult; Z86.73 Personal history of transient ischemic attack (TIA), and cerebral infarction without residual deficits; Z87.891 Personal history of nicotine dependence; Z79.82 Long term (current) use of aspirin; Z79.84 Long term (current) use of oral hypoglycemic drugs; Z79.899 Other long term (current) drug therapy; Z88.1 Allergy status to other antibiotic agents; Z95.1 Presence of aortocoronary bypass graft
CPT/HCPCS: 36415; 36416; 80048; 83735; 84100; 84484; 85025; 96365; 96372; 96375; G0378; J0360; J1650; J1815; J3475; Q0162